=== PATIENT | male | born 1950 | race African-American/Black ===

== ENCOUNTER 2017-02-14 15:22 | Inpatient (IN) ==
--- NOTE | 2017-02-14 15:40 | EKG Report ---
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
--- NOTE | 2017-02-14 15:44 | Emergency Department Note ---
Arrival - Arrival Chief Complaint: Shortness of Breath Stated Complaint: shortness of breath ED Nursing Triage Note: Brought in per EMS from home with c/o shortness of breath onset yesterday with worsening today. +productive cough with clear sputum. +generalized weakness. +decreased appetite. Denies pain. Mode of Arrival: Stretcher Limitations: No Limitations Source: Patient, RN Notes Reviewed Time Seen by Provider: 02/14/17 15:33 - History of Present Illness HPI Narrative: Patient is a 66-year-old black male with a history of shortness of breath for 5 months worse over the last 3 days. Patient admits to orthopnea. Is also experienced some dyspnea on exertion. The patient is followed at the [place] [facility]. He admits to heavy alcohol use in the past and heavy cigarette smoking. Patient states that he has a history of hypertension and diabetes mellitus. He complains of a history of lower extremity edema Onset (ago): month(s) (5) Allergies/Adverse Reactions: Allergies Allergy/AdvReac Type Severity Reaction Status Date / Time No Known Allergies Allergy Verified 02/14/17 15:31 Review of System - Review of System 12 point system: reviewed and no additional remarkable complaints except as stated - Review of System Constitutional: Absent: chills, fever Cardiovascular: Present: dyspnea on exertion, orthopnea, edema. Absent: chest pain Gastrointestinal: Absent: nausea, vomiting Medical,Surgical,& Family Hx - Medical History Cardio: History of: CHF Endocrine: History of: Diabetes Mellitus (NIDDM) Respiratory: History of: Respiratory Problems (Home oxygen 2 Liters) Gastrointestinal: History of: Liver Problems (Hepatitis C, Cirrhosis) - Social History Smoking Status: Current every day smoker Frequency of Alcohol Use: Occasionally Type of Drug Use: None Exam Vital Signs: Vital Signs Temperature 97.2 F L 02/14/17 15:22 Pulse Rate 131 H 02/14/17 15:22 Respiratory Rate 24 02/14/17 15:22 Blood Pressure 107/86 02/14/17 15:22 O2 Sat by Pulse Oximetry 99 02/14/17 15:22 GENERAL: This is a chronically ill-appearing black male in no apparent distress. VITAL SIGNS: Reviewed HEENT: Head is atraumatic and normocephalic. Pupils are equal round react to light. Extraocular movements are intact. Oropharynx is benign with moist mucous membranes. NECK: Neck is soft and supple without tenderness. There are no masses. There is no lymphadenopathy. LUNGS: Lungs are clear to auscultation. Chest rises symmetrically. There is no chest wall tenderness. CV: Heart is regular rate and rhythm without murmurs rubs or gallops. JVD present to the angle of mandible ABDOMEN: Abdomen is soft, nontender to palpation. There are no abdominal abnormal masses palpated. There is no organomegaly. Bowel sounds are present and active. SKIN: Skin is warm and dry. No rash. EXTREMITIES: Patient has full range of motion without tenderness. There is 2+ pitting pedal edema. Course - Consultations Consultation #1: Discussed with hospitalist. Patient will be admitted to their service. Time: 16:55 Results - Labs CBC & BMP: 02/14/17 15:50 02/14/17 15:50 Lab Results: I have reviewed the patients labs Labs: Echocardiogram performed in the emergency department. Preliminary report, shows EF of approximately 15-20%. AI, MR, NC and TR. - EKG EKG results: interpreted by ERMD - Impressions EKG: Sinus tachycardia rate 127, T-wave inversion consistent with lateral ischemia - Diagnostic Findings Procedure: Chest x-ray: image reviewed by me (Cardiomegaly) Disposition Clinical Impression: Acute on chronic congestive heart failure, Cardiomyopathy, suspect alcohol Case discussed with: patient Disposition: Still a Patient Condition: Stable
[2017-02-14 16:04] LABS: Basophils % 0.4 % (0.0-0.8); Eosinophils % 0.2 % (0.00-10.9); Hematocrit 37.7 VOL% (42.0-52.0); Immature Granulocytes % 0.2 %; Immature Granulocytes Absolute 0.02 #; Lymphocytes # 2.8 10*3/uL (1.4-4.0); Lymphocytes % 34.6 % (21.2-54.2); Mean Corpuscular HGB Conc 34.5 GM/DL (32-36); Mean Corpuscular Hemoglobin 27 PG (27-34); Mean Corpuscular Volume 78.4 FL (87-102); Mean Platelet Volume 11.7 FL (9.6-12.0); Monocytes % 11.8 % (1.7-12.7); NRBC # 0.05 10*3/uL; Neutrophils # 4.3 10*3/uL (1.4-7.4); Neutrophils % 52.8 % (38.7-73.9); Platelet Count 188 T/CUMM (130-400); Red Blood Count 4.81 MC/CUMM (3.8-5.5); Red Cell Distribution Width 18.5 % (9.3-17.3); White Blood Count 8.2 T/CUMM (4-12)
--- NOTE | 2017-02-14 16:08 | XRay Report ---
XR chest 1V portable Indication: Shortness of breath Comparison: 11 September 2014 Findings: The heart and mediastinum are stable in size and configuration. The pulmonary vascularity is slightly increased with bilateral increased interstitial lung density. No other lung infiltrates, effusions, pneumothorax or other abnormality is demonstrated. Impression: Findings suggest mild cardiac decompensation. PROCEDURE INTERPRETED AT [facility] DEPARTMENT OF RADIOLOGY Final Report Signed by: Dr. Jaylen Stubbs
[2017-02-14 16:13] LABS: INR 1.3; Partial Thromboplastin Time 32.4 SECS (0-40)
[2017-02-14 16:26] LABS: Albumin 3.3 G/DL (3.4-5.0); Bilirubin,Total 1.8 MG/DL (0.2-1.0); Calcium 9.2 MG/DL (8.5-10.1); Total Protein 9.2 G/DL (6.4-8.3)
[2017-02-14 16:27] LABS: Osmolality,Calculated 277.1 MOS/KG (273-304); Potassium 4.3 MMOL/L (3.5-5.1); Troponin I Only 0.139 NG/ML (0.00-0.045)
[2017-02-14] MEDS ORDERED: DOCUSATE SODIUM 100 MG CAPSULE PO PRN (17:33)
[2017-02-14] MEDS ORDERED: diphenhydrAMINE CAP 25 MG CAPSULE PO PRN (17:33)
[2017-02-14] MEDS ORDERED: ACETAMINOPHEN 325 MG TABLET PO PRN (17:33)
[2017-02-14] MEDS ORDERED: PROMETHAZINE 25 MG TABLET PO PRN (17:33)
[2017-02-14] MEDS ORDERED: ONDANSETRON 4 MG/2 ML VIAL IV PRN (17:33)
[2017-02-14] MEDS ORDERED: guaiFENesin/DM ER 600-30 MG TABLET PO PRN (17:33)
[2017-02-14] MEDS ORDERED: MORPHINE 2 MG/1 ML SYRINGE IV PRN (17:33)
[2017-02-14] MEDS ORDERED: POTASSIUM CHLORIDE 20 MEQ TABLET PO PRN (17:39)
[2017-02-14] MEDS ORDERED: MAGNESIUM SULF RIDER 4 GM in PREMIX 1 EACH IV PRN (17:39)
--- NOTE | 2017-02-14 17:49 | Hospitalist History & Physical ---
<[place] Dasilva - Last Filed: 02/14/17 17:42> Assessment and Plan - Time spent with patient Time spent with patient: Greater than 30 minutes (1) Hepatocellular carcinoma Status: Acute Assessment and plan: Mr. Wong is a 66-year-old -[place] male with diabetes, hypertension, CHF , alcohol hepatitis C, and hepatocellular carcinoma with ascites admitted by the hospitalist service in heart failure. Patient will be admitted to the ICU due to his tachycardia and hypotension along with tachypnea. Will consult cardiology and GI to evaluate. Patient's home medicines have not been entered into the system yet, so these will be evaluated once confirmed. Patient was put on oxygen, and Lasix to diurese. Dr. Funez will see and examine patient and further recommendations to follow. Current Visit: Yes (2) Ascites due to alcoholic hepatitis Status: Acute Current Visit: Yes (3) Hepatitis C Status: Acute Current Visit: Yes (4) Shortness of breath Status: Acute Current Visit: Yes (5) Dizziness Status: Acute Current Visit: Yes (6) Weakness Status: Acute Current Visit: Yes (7) Acute renal failure Status: Acute Current Visit: Yes (8) Acute on chronic congestive heart failure Status: Acute Current Visit: Yes History of Present Illness Chief complaint: Shortness of breath History of present illness: Mr. 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 Patient is a poor historian and there are no old records to go by. According to him he was hospitalized at the [place] in August and October with shortness of breath and dizziness. He is not really sure what they did and what he is diagnosed with. He went to [facility] in November and had a liver biopsy and the discharge paperwork he had in his hand showed a primary hepatocellular carcinoma. He was unsure of this diagnosis. Patient is afebrile but his pulse rate is in the 120s-130s, he is tachypneic at 26 and he has borderline hypotensive with most recent blood pressure 100/76. His CBC is okay and coags are normal. His creatinine is 1.8, total bilirubin 1.8, AST 114, ALT 69, troponins are elevated at 0.139, and his BNP is 1351. I have not seen his echo report yet but per Dr. Slaughter in the ED it showed an EF of 15-20% with aortic insufficiency and mitral regurg. Upon exam, patient has conversational dyspnea with some crackles at the lung bases. His abdomen is distended with a fluid wave. Patient denies headache, blurred vision , dysphagia, chest pain, abdominal pain, but he does have some minimal lower extremity edema. Patient states he smoked a pack a day for about 40 years and he quit in August when he was hospitalized. Patient also states he drank a lot of alcohol pretty much his whole life and he has cut back a lot since his hospitalization in October. He states he will buy a 12 pack and it will last him 3 or 4 days. Patient's case was discussed with Dr. Slaughter the ED physician and the admitting hospitalist, and it was agreed patient would be admitted for further evaluation and treatment. Allergies Allergy/AdvReac Type Severity Reaction Status Date / Time No Known Allergies Allergy Verified 02/14/17 15:31 Medical,Surgical,& Family Hx - Medical History Cardio: History of: CHF Endocrine: History of: Diabetes Mellitus (NIDDM) Respiratory: History of: Respiratory Problems (Home oxygen 2 Liters) Gastrointestinal: History of: Liver Problems (Hepatitis C, Cirrhosis) - Surgical History Orthopedic Surgeries: Surgical HX of;: Orthopedic Surgery - Family History Family History: Reports;: Family Diabetes - Social History Smoking Status: Current every day smoker Frequency of Alcohol Use: Frequently Type of Drug Use: None Marital Status: Single Lives With:: Significant Other Functional capacity: independent ambulation Review of systems: A complete 10 system review of systems was obtained and pertinent positives and negatives per HPI Exam - Constitutional Vitals: Period Temp Pulse Resp BP Sys/Hayden Pulse Ox Last 24 Hr 97.2 F-97.2 F 128-131 24-27 100-107/76-86 99-100 Exam: Constitutional System: Mild distress. No tremulousness. Head: Normocephalic, atraumatic. Ears, Nose and Throat System: No evidence of Otitis or Mastoiditis. No epistaxis or discharge, poor dentition Eyes System: Pupils equal, round, and reactive. Extraocular muscles intact. Neck: Supple, without adenopathy, mild jugular venous distention. No thyromegaly , neck mass, or prior surgery apparent. Respiratory System: Chest mild crackles at lung bases to auscultation. Cardiovascular System: Heart with tachycardic rate and rhythm. 2/6 murmur. GI System: Abdomen distended, nontender. Positive fluid wave Normo active bowel sounds present. Musculoskeletal System: limbs with mild pedal edema. Diminished distal pulses. Neurological System: No discernable sensory deficit. No aphasia Psychiatric System: Conversation is rational Results - Labs CBC & BMP: 02/14/17 15:50 02/14/17 15:50 Lab Results: I have reviewed the past 24 hour labs - EKG EKG shows: tachycardia, sinus rhythm - Impressions ST deviation and moderate T-wave abnormality, consider lateral ischemia, sinus tachycardia - Diagnostic Findings Procedure: Chest x-ray: report reviewed by me (Mild cardiac decompensation) <Kary Funez - Last Filed: 02/14/17 20:24> History of Present Illness History of present illness: Mr. Wong is a 66 year old male with hepatic carcinoma presenting with SOB and ascites. His Troponin is also elevated,CXR showed mild CHF. Echo showed an EF of 15%. -Serial cardiac enzymes -Ascitic tap -Cardiology consult Lovenox, asa -TSH, Lipids, UA CMP , cbc in am IV diuretics Exam - Constitutional Vitals: Period Temp Pulse Resp BP Sys/Hayden Pulse Ox Last 24 Hr 97.9 F 128-128 14-24 95-101/77-82 96-100 Results - Labs CBC & BMP: 02/14/17 15:50 02/14/17 15:50
--- NOTE | 2017-02-14 18:33 | ECHO Report ---
Marvin Oleksandr Exam Date: 02/14/2017 15:52 Referring Physician: Technologist: Meaghan Obando RDCS Age: 66 Ht (in): 67 Wt (lb): 165 Gender: M Exam [facility]: [facility] Echo Indications: Shortness of breath, Heart failure, unspecified BP: 107 / 86 HR: 131 Rhythm: Sinus Technical Quality: Fair IMPRESSIONS Normal left ventricular cavity size. Normal left ventricular wall thickness. Left ventricular ejection fraction is estimated at 15 %. The right ventricle is normal in size and function. Moderately increased right atrial size. Mild atrial enlargement in apical view (elongated LA). Morphologically normal mitral valve. Mild mitral annular calcification. Mild mitral valve regurgitation. Aortic valve sclerosis without stenosis. Trace to mild aortic valve regurgitation. Morphologically normal tricuspid valve. Moderate tricuspid valve regurgitation. Tricuspid regurgitation velocities suggest a PAP of 31 mmHg. Morphologically normal pulmonic valve. Xpvx-cy-qirgqoeo pulmonary valve regurgitation. Normal pericardium without effusion. Normal ascending aorta dimension. MEASUREMENTS (Male / Female) Normal Values 2D ECHO LV Diastolic Diameter PLAX 4.9 cm 4.2 - 5.9 / 3.9 - 5.3 cm LV Systolic Diameter PLAX 4.4 cm LV Fractional Shortening PLAX 9.2 % IVS Diastolic Thickness 0.9 cm 0.6 - 1.0 / 0.6 - 0.9 cm LVPW Diastolic Thickness 1.0 cm 0.6 - 1.0 / 0.6 - 0.9 cm RV Internal Dim ED PLAX 4.2 cm Aortic Root Diameter 3.1 cm LA Systolic Diameter LX 4.1 cm 3.0 - 4.0 / 2.7 - 3.8 cm DOPPLER TR Peak Velocity 227.0 cm/s TR Peak Gradient 20.6 mmHg FINDINGS Left Ventricle Normal left ventricular cavity size. Normal left ventricular wall thickness. Left ventricular ejection fraction is estimated at 15 %. Right Ventricle The right ventricle is normal in size and function. Right Atrium Moderately increased right atrial size. Left Atrium Mild atrial enlargement in apical view (elongated LA). Mitral Valve Morphologically normal mitral valve. Mild mitral annular calcification. Mild mitral valve regurgitation. Aortic Valve Aortic valve sclerosis without stenosis. Trace to mild aortic valve regurgitation. Tricuspid Valve Morphologically normal tricuspid valve. Moderate tricuspid valve regurgitation. Tricuspid regurgitation velocities suggest a PAP of 31 mmHg. Pulmonic Valve Morphologically normal pulmonic valve. Dufx-dw-ikkmofyw pulmonary valve regurgitation. Pericardium Normal pericardium without effusion. Aorta Normal ascending aorta dimension. Rayray Funez MD (Electronically Signed) Final Date: 14 Feb 2017 18:31
[2017-02-14] MEDS: FUROSEMIDE 40 MG/4 ML VIAL IV SCH (18:59)
[2017-02-14] MEDS ORDERED: ALBUTEROL 2.5 MG/3 ML NEB RESP TX PRN (19:00)
[2017-02-14] MEDS: METOPROLOL SUCCINATE XL 25 MG TABLET PO SCH (21:10)
[2017-02-14] MEDS: POTASSIUM CHLORIDE 20 MEQ TABLET PO SCH (21:10)
[2017-02-14] MEDS: ENOXAPARIN 40 MG/0.4 ML SYRINGE SUBCUT SCH (21:10)
[2017-02-14 21:14] LABS: Free T4 (Free Thyroxine) 1.57 NG/DL (0.76-1.46); Risk Ratio 2.47; Thyroid Stimulating Hormone 8.3 uIU/ml (0.358-3.74); VLDL CHOLESTEROL 17.8 MG/DL
[2017-02-14] MEDS: BUDESONIDE/FORMOTEROL 160-4.5 INHALER 6 GM INH SCH (21:16)
[2017-02-14 23:15] LABS: Apearance,Urine CLEAR (Clear); Bilirubin,Urine Negative (Negative); Blood, Urine Negative (Negative); Glucose,Urine (UA) Negative (Negative); Hyaline Casts,Urine 4 /LPF (0-3); Ketones,Urine Negative (Negative); Mucus,Urine Occasional /LPF (Occasional); Nitrite,Urine Negative (Negative); Protein,Urine Negative; RBC,Urine <1 /HPF (0-4); Urine Color Yellow (Yellow); Urine Specific Gravity 1.009 (1.001-1.035); WBC,Urine <1 /HPF (0-6)
[2017-02-15 00:17] LABS: Troponin I Only 0.221 NG/ML (0.00-0.045)
[2017-02-15 05:36] LABS: Basophils % 0.5 % (0.0-0.8); Eosinophils # 0.1 10*3/uL (0.0-0.87); Eosinophils % 0.6 % (0.00-10.9); Hematocrit 34.5 VOL% (42.0-52.0); Hemoglobin 11.9 GM/DL (14.0-18.0); Immature Granulocytes % 0.3 %; Immature Granulocytes Absolute 0.03 #; Lymphocytes # 4.1 10*3/uL (1.4-4.0); Mean Corpuscular HGB Conc 34.5 GM/DL (32-36); Mean Corpuscular Hemoglobin 27 PG (27-34); Mean Corpuscular Volume 77.9 FL (87-102); Mean Platelet Volume 11.6 FL (9.6-12.0); Monocytes # 1.1 10*3/uL (0.11-0.8); Monocytes % 12.2 % (1.7-12.7); NRBC # 0.03 10*3/uL; Neutrophils # 3.4 10*3/uL (1.4-7.4); Neutrophils % 39.4 % (38.7-73.9); Platelet Count 200 T/CUMM (130-400); Red Blood Count 4.43 MC/CUMM (3.8-5.5); Red Cell Distribution Width 18.1 % (9.3-17.3); White Blood Count 8.6 T/CUMM (4-12)
[2017-02-15 06:16] LABS: Albumin 3.1 G/DL (3.4-5.0); Bilirubin,Total 1.9 MG/DL (0.2-1.0); Calcium 8.4 MG/DL (8.5-10.1); Magnesium 1.4 MG/DL (1.8-2.4); Total Protein 8.5 G/DL (6.4-8.3)
[2017-02-15 06:17] LABS: Osmolality,Calculated 278.1 MOS/KG (273-304); Potassium 4.3 MMOL/L (3.5-5.1)
[2017-02-15] MEDS: MAGNESIUM SULF RIDER 2 GM in PREMIX 1 EACH IV PRN ×2 (06:25→13:11)
--- NOTE | 2017-02-15 06:58 | XRay Report ---
Exam: XR chest 1V portable Date: 02/15/2017 4:00 AM Indication: Shortness of breath Comparison: 02/14/2017 Technical: AP portable Findings: External cardiac leads are present. Cardiomegaly is present. Tiny low volume right effusion present with minimal fluid along the minor fissure. Degenerative change present thoracic spine. Oxygen tubing superimposes exam. No pneumothorax. Old left rib fractures present. Impression: 1. Cardiomegaly with low volume right effusion 2. Old left rib fractures 3. Findings similar to previous study PROCEDURE INTERPRETED AT [facility] DEPARTMENT OF RADIOLOGY Final Report Signed by: Dr. Hernandez Abdalla
--- NOTE | 2017-02-15 08:41 | EKG Report ---
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
--- NOTE | 2017-02-15 09:06 | Physician Query Form ---
CLICK EDIT DOCUMENT TO SELECT QUERY ANSWER --> OK --> SIGN Ciara Carlin RN, CCDS Certified Clinical Alteration Tailor Apprentice W) [phone] (f) [phone] [email or web address] PROVIDERS: Make your selection(s) from the choices in EACH section by typing an "x" and enter comments in the comment section. Please use your independent medical judgment in providing your response. This request does not imply that any particular answer is desired or expected. CLINICAL INDICATORS: (Providers should not edit this section) The medical record indicates that the patient was admitted with CHF, "Respiratory Problems (Home oxygen 2 Liters", the patient was admitted and placed on 2 Liters per NC. Based on the above, could you clarify the appropriate diagnosis, if significant , that supports the above abnormalities and additional evaluation, monitoring, and/or treatment rendered: ( ) Patient is not being monitored or treated for chronic respiratory failure (x ) Patient is being monitored or treated for chronic respiratory failure ( ) Other, please specify: ( ) Clinically unable to determine COMMENTS: PLEASE ALSO DOCUMENT RESPONSE IN PROGRESS NOTES AND/OR DISCHARGE SUMMARY Use of terms such as suspected, likely, or probable (associated with a specific diagnosis that is being evaluated, monitored, or treated as if it exists) are acceptable and can be restated in the discharge summary if not ruled out. MTDD
--- NOTE | 2017-02-15 09:18 | Cardiology Consult Note ---
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 Status: Chronic Assessment and plan: SEE PLAN OF CARE LISTED BELOW Current Visit: Yes (4) Dizziness Status: Resolved Assessment and plan: SEE PLAN OF CARE LISTED BELOW Current Visit: Yes (5) Hepatitis C Status: Chronic Assessment and plan: SEE PLAN OF CARE LISTED BELOW Current Visit: Yes (6) Hepatocellular carcinoma Status: Chronic Assessment and plan: SEE PLAN OF CARE LISTED BELOW Current Visit: Yes (7) Shortness of breath Status: Acute Assessment and plan: SEE PLAN OF CARE LISTED BELOW Current Visit: Yes (8) Sinus tachycardia Status: Acute Assessment and plan: SEE PLAN OF CARE LISTED BELOW Current Visit: Yes (9) Elevated troponin Status: Acute Assessment and plan: SEE PLAN OF CARE LISTED BELOW Current Visit: Yes History of Present Illness - Data of Consult Patient: new to practice Consult date: 02/15/17 Requesting Physician: Kary Funez - Consult Narrative Reason for consult: Decreased EF (15%), tachycardia History of present illness: Mr. 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 Risk factors include : hypertension, diabetes. History of hepatocellular carcinoma, hepatitis C, ascites due to alcoholic hepatitis. Patient presented to the emergency department at [facility] February 14, 2017 with complaints of progressive shortness of breath, weakness and dizziness. According to the hospitalist's notes, he was seen in the [facility] center in August and October with shortness of breath and dizziness. He went to [facility] in November 2016, had a liver biopsy and was diagnosed with primary hepatocellular carcinoma. He continues to see a physician at the [place] to treat his liver cancer. He is unaware of having a weak heart. He denies having chest pain, heaviness or tightness. He denies having prior OH or any other cardiac conditions. His breathing has improved since admission. Chest x-ray does not reveal CHF. ProBNP is elevated and chest xray reveals improvement overnight. Troponins flat at 0.139-0.221 with normal CPK and CK-MB. EKG reveals ST-T wave abnormalities, no STEMI. Patient is scheduled for paracentesis today. We will continue to follow along. Recommend addressing his hypothyroid state, monitoring of his electrolytes. His telemetry reveals sinus tachycardia. Blood pressure will not allow for introduction of a higher dose of beta- blockade. We can give 1 dose of IV digoxin to slow down the rate. He is not a candidate for invasive workup due to his multiple comorbidities. When able, recommend introduction of an ROCÍO inhibitor if his creatinine stable. Will discuss with Dr. Funez and await further recommendations. ASSESSMENT/PLAN: 1. SINUS TACHYCARDIA - 1 dose of IV digoxin. Beta-blockade has been ordered. 2. ELEVATED TROPONIN - troponin is flat. CPK and MB are normal. This is not an acute coronary syndrome. Not eligible for invasive workup given his multiple comorbidities. Continue with aspirin as able. 3. HEPATOCELLULAR CARCINOMA - continue current plan of care 4. RENAL INSUFFICIENCY - stage III. Uncertain if this is acute or chronic. 5. HEPATITIS C - continue current plan of care 6. ASCITIES DUE TO ALCOHOLIC HEPATITIS - continue current plan of care. Scheduled for paracentesis today 7. SHORTNESS OF BREATH - multifactorial. Initial chest x-ray reveals mild CHF and this improved overnight. Continue diuresis, afterload reduction when able. Strict I&O and daily weights. 8. CARDIOMYOPATHY - etiology undetermined and he is not a candidate for invasive workup. EF 15%. Continue with current plan of care. 9. ACUTE HFrEF -EF 15%, NYHA CLASS III. Continue with afterload reduction, diuresis, strict I&O and daily weights. Suspect this is an acute on chronic exacerbation however this is my first encounter with Mr. Wong and I have no records from which to pull. CC: Waqar Kennedy MD - Home Medications and Allergies Home Medications: Home Medications Medication Instructions Recorded Confirmed Type Albuterol Inhaler [Proventil 2 puff INH Q6H PRN 02/14/17 02/14/17 History Inhaler] Aspirin EC Tab 81 mg PO DAILY 02/14/17 02/14/17 History Budesonide/Formoterol 160-4.5 2 puff INH BID 02/14/17 02/14/17 History [Symbicort 160-4.5] Cholecalciferol [Vitamin D3] 1,000 unit PO DAILY 02/14/17 02/14/17 History Furosemide Tab [Lasix Tab] 40 mg PO DAILY 02/14/17 02/14/17 History Meloxicam [Mobic] 7.5 mg PO DAILY PRN 02/14/17 02/14/17 History Metformin HCl 850 mg PO BID 02/14/17 02/14/17 History Metoprolol Succinate 25 mg PO BID 02/14/17 02/14/17 History Omeprazole 20 mg PO DAILY 02/14/17 02/14/17 History Ondansetron HCl 4 mg PO DAILY PRN 02/14/17 02/14/17 History Polyethylene Glycol 3350 17 gm PO DAILY 02/14/17 02/14/17 History Potassium Chloride 20 meq PO BID 02/14/17 02/14/17 History Sildenafil Citrate [Viagra] 100 mg PO DAILY PRN 02/14/17 02/14/17 History Allergies/Adverse Reactions: Allergies Allergy/AdvReac Type Severity Reaction Status Date / Time No Known Allergies Allergy Verified 02/14/17 15:31 Review of systems: REVIEW OF SYSTEMS: - Constitutional Constitutional: Present: Fatigue. Absent: syncope, anorexia, night sweats - EENT Eyes: Absent: blurry vision, loss of vision, diplopia Ears: Absent: decreased hearing, ear pain, ear discharge - Cardiovascular Cardiovascular: Denies: chest pain with exertion. Denies palpitations. Absent : chest pain with deep breath, claudication - Respiratory Respiratory: RANDALL, no cough. No orthopnea. Denies wheezing, hemoptysis, change in phlegm color - Gastrointestinal Gastrointestinal: Denies: constipation. Absent: abdminal pain, hematemesis, hematochezia, melena, change in bowel habits, nausea. Acknowledges protuberance and swelling. - Genitourinary Genitourinary: Absent: difficulty urinating, dysuria, urinary hesitancy, flank pain - Musculoskeletal Musculoskeletal: Present: back pain Absent: joint swelling, muscle cramps, muscle weakness - Neurological Neurological: Present: normal gait without frequent falls. Absent: dizziness, hemiparesis - Psychiatric Psychiatric: Absent: anxiety, depression, difficulty concentrating - Endocrine Endocrine: Absent: cold intolerance, heat intolerance, polyuria, polyphagia, polydipsia - Hematologic/Lymphatic Hematologic/Lymphatic: Present: easy bruising. Absent: easy bleeding -Integumentary Integumentary: Absent: lesions, rashes, skin breakdown Medical,Surgical,& Family Hx - Medical History Cardio: History of: CHF Psychological: History of: Depression HEENT: History of: Eye Problem (cataract surgery right eye) Endocrine: History of: Diabetes Mellitus (NIDDM) Respiratory: History of: COPD, Respiratory Problems (Home oxygen 2 Liters) Gastrointestinal: History of: GERD, Liver Problems (Hepatitis C, Cirrhosis) Musculoskeletal: History of: Back/Neck Problems, Musculoskeletal Problems (pain pills for back pain PRN) - Surgical History Orthopedic Surgeries: Surgical HX of;: Orthopedic Surgery - Family History Family History: Reports;: Family Diabetes - Social History Smoking Status: Current every day smoker Frequency of Alcohol Use: Frequently Type of Drug Use: None Physical Examination Vital Signs Temp Pulse Resp BP Pulse Ox 97.2 F L 131 H 24 107/86 99 02/14/17 15:22 02/14/17 15:22 02/14/17 15:22 02/14/17 15:22 02/14/17 15:22 General: [Appears well with no apparent distress.] [Pleasant and cooperative. ] [Appears comfortable.] HEENT: [Normocephalic, atraumatic. Mucous membranes moist. Conjunctiva moist and clear, sclerae anicteric] Neck: No obvious JVD/HJR, no thyromegaly. No carotid bruit appreciated Cardiac: [Regular rhythm, tachycardia rate. [No murmur, rub or gallop.] Lungs: [Relatively clear without without accessory muscle use to assist the respiratory pattern.] Oxygen in use via nasal cannula Abdomen: Ascites noted. Palpable orange-size mass noted right upper abdominal quadrant. Bowel sounds normoactive. Musculoskeletal: No fluid collection. Decreased range of motion is noted. Extremities: No clubbing, cyanosis noted. [ No edema noted.] Upper extremity pulses 2+. Lower extremity pulses 2+. Capillary refill less than 3 seconds. Skin: No unusual lesions or rashes. No skin breakdown appreciated. Neuro: Awake, alert and oriented 3. Moves all extremities well without hemiparesis or paralysis. No essential tremor is appreciated. Result/EKG - Labs CBC & BMP: 02/15/17 05:05 02/15/17 05:05 Lab Results: I have reviewed the past 24 hour labs Labs: Laboratory Results - last 24 hr 05/17/17 05/17/17 05/17/17 20:40 20:40 22:28 WBC RBC Hgb Hct MCV MCH MCHC RDW Plt Count MPV Neut % (Auto) Lymph % (Auto) Walker % (Auto) Eos % (Auto) Baso % (Auto) Neut # (Auto) Lymph # (Auto) Walker # (Auto) Eos # (Auto) Baso # (Auto) Immature Gran % Nucleated RBC % Immature Gran # Nucleated RBCs # Sodium Potassium Chloride Carbon Dioxide Anion Gap BUN Creatinine GFR Calculation BUN/Creatinine Ratio Glucose Calculated Osmolality Calcium Magnesium Total Bilirubin AST ALT Alkaline Phosphatase Total Creatine Kinase 103 CK-MB (CK-2) 1.7 Troponin I 0.170 H D B-Natriuretic Peptide Total Protein Albumin Globulin Albumin/Globulin Ratio Triglycerides 89 Cholesterol 148 LDL Cholesterol 74.0 VLDL Cholesterol 17.8 HDL Cholesterol 60 Heart Disease Risk Ratio 2.47 Free T4 1.57 H TSH 3rd Generation 8.300 H Urine Color Yellow Urine Appearance Clear Urine pH 6.0 Ur Specific [place] 1.009 Urine Protein Negative Urine Glucose (UA) Negative Urine Ketones Negative Urine Blood Negative Urine Nitrate Negative Urine Bilirubin Negative Urine Urobilinogen 2.0 H Urine Leukocytes Negative Urine RBC <1 Urine WBC <1 Hyaline Casts 4 Urine Mucus Occasional Ur Culture Indicated? Not indicated 02/14/17 02/15/17 02/15/17 23:32 05:05 05:05 WBC 8.6 RBC 4.43 Hgb 11.9 L Hct 34.5 L MCV 77.9 L MCH 27 MCHC 34.5 RDW 18.1 H Plt Count 200 MPV 11.6 Neut % (Auto) 39.4 Lymph % (Auto) 47.0 Walker % (Auto) 12.2 Eos % (Auto) 0.6 Baso % (Auto) 0.5 Neut # (Auto) 3.4 Lymph # (Auto) 4.1 H Walker # (Auto) 1.1 H Eos # (Auto) 0.1 Baso # (Auto) 0.0 Immature Gran % 0.3 Nucleated RBC % 0.3 Immature Gran # 0.03 Nucleated RBCs # 0.03 Sodium 135 L Potassium 4.3 Chloride 99 Carbon Dioxide 23 Anion Gap 17.3 H BUN 37 H Creatinine 1.80 H GFR Calculation 48 BUN/Creatinine Ratio 20.00 Glucose 92 Calculated Osmolality 278.1 Calcium 8.4 L Magnesium 1.4 L Total Bilirubin 1.90 H AST 149 H ALT 76 H Alkaline Phosphatase 60 Total Creatine Kinase 94 CK-MB (CK-2) 1.5 Troponin I 0.221 H D B-Natriuretic Peptide Total Protein 8.5 H Albumin 3.1 L Globulin 5.4 H Albumin/Globulin Ratio 0.5 L Triglycerides Cholesterol LDL Cholesterol VLDL Cholesterol HDL Cholesterol Heart Disease Risk Ratio Free T4 TSH 3rd Generation Urine Color Urine Appearance Urine pH Ur Specific [place] Urine Protein Urine Glucose (UA) Urine Ketones Urine Blood Urine Nitrate Urine Bilirubin Urine Urobilinogen Urine Leukocytes Urine RBC Urine WBC Hyaline Casts Urine Mucus Ur Culture Indicated? 02/15/17 05:05 WBC RBC Hgb Hct MCV MCH MCHC RDW Plt Count MPV Neut % (Auto) Lymph % (Auto) Walker % (Auto) Eos % (Auto) Baso % (Auto) Neut # (Auto) Lymph # (Auto) Walker # (Auto) Eos # (Auto) Baso # (Auto) Immature Gran % Nucleated RBC % Immature Gran # Nucleated RBCs # Sodium Potassium Chloride Carbon Dioxide Anion Gap BUN Creatinine GFR Calculation BUN/Creatinine Ratio Glucose Calculated Osmolality Calcium Magnesium Total Bilirubin AST ALT Alkaline Phosphatase Total Creatine Kinase CK-MB (CK-2) Troponin I B-Natriuretic Peptide 1197 H Total Protein Albumin Globulin Albumin/Globulin Ratio Triglycerides Cholesterol LDL Cholesterol VLDL Cholesterol HDL Cholesterol Heart Disease Risk Ratio Free T4 TSH 3rd Generation Urine Color Urine Appearance Urine pH Ur Specific [place] Urine Protein Urine Glucose (UA) Urine Ketones Urine Blood Urine Nitrate Urine Bilirubin Urine Urobilinogen Urine Leukocytes Urine RBC Urine WBC Hyaline Casts Urine Mucus Ur Culture Indicated? - Diagnostic Findings Procedure: Chest x-ray: report reviewed by me, Ultrasound: report reviewed by me (Echo) - EKG EKG results: interpreted by me EKG shows: tachycardia <Rayray Funez - Last Filed: 02/15/17 15:03> History of Present Illness - Consult Narrative History of present illness: Mr. Wong is a 66 year old male with a cardiomyopathy of undetermined etiology. He has creatinine 1.8 and I am going to cautiously add low-dose lisinopril and watch his renal function and his potassium. I am going to switch him to Coreg from metoprolol and see if we can get him appropriately treated for his cardiomyopathy. CC: Waqar Kennedy MD Physical Examination Vital Signs Temp Pulse Resp BP Pulse Ox 97.2 F L 131 H 24 107/86 99 02/14/17 15:22 02/14/17 15:22 02/14/17 15:22 02/14/17 15:22 02/14/17 15:22 Result/EKG - Labs CBC & BMP: 02/15/17 05:05 02/15/17 05:05 Labs: Laboratory Results - last 24 hr 02/14/17 02/14/17 02/14/17 20:40 20:40 22:28 WBC RBC Hgb Hct MCV MCH MCHC RDW Plt Count MPV Neut % (Auto) Lymph % (Auto) Walker % (Auto) Eos % (Auto) Baso % (Auto) Neut # (Auto) Lymph # (Auto) Walker # (Auto) Eos # (Auto) Baso # (Auto) Immature Gran % Nucleated RBC % Immature Gran # Nucleated RBCs # Sodium Potassium Chloride Carbon Dioxide Anion Gap BUN Creatinine GFR Calculation BUN/Creatinine Ratio Glucose Calculated Osmolality Calcium Magnesium Total Bilirubin AST ALT Alkaline Phosphatase Total Creatine Kinase 103 CK-MB (CK-2) 1.7 Troponin I 0.170 H D B-Natriuretic Peptide Total Protein Albumin Globulin Albumin/Globulin Ratio Triglycerides 89 Cholesterol 148 LDL Cholesterol 74.0 VLDL Cholesterol 17.8 HDL Cholesterol 60 Heart Disease Risk Ratio 2.47 Free T4 1.57 H TSH 3rd Generation 8.300 H Urine Color Yellow Urine Appearance Clear Urine pH 6.0 Ur Specific [place] 1.009 Urine Protein Negative Urine Glucose (UA) Negative Urine Ketones Negative Urine Blood Negative Urine Nitrate Negative Urine Bilirubin Negative Urine Urobilinogen 2.0 H Urine Leukocytes Negative Urine RBC <1 Urine WBC <1 Hyaline Casts 4 Urine Mucus Occasional Ur Culture Indicated? Not indicated 02/14/17 02/15/17 02/15/17 23:32 05:05 05:05 WBC 8.6 RBC 4.43 Hgb 11.9 L Hct 34.5 L MCV 77.9 L MCH 27 MCHC 34.5 RDW 18.1 H Plt Count 200 MPV 11.6 Neut % (Auto) 39.4 Lymph % (Auto) 47.0 Walker % (Auto) 12.2 Eos % (Auto) 0.6 Baso % (Auto) 0.5 Neut # (Auto) 3.4 Lymph # (Auto) 4.1 H Walker # (Auto) 1.1 H Eos # (Auto) 0.1 Baso # (Auto) 0.0 Immature Gran % 0.3 Nucleated RBC % 0.3 Immature Gran # 0.03 Nucleated RBCs # 0.03 Sodium 135 L Potassium 4.3 Chloride 99 Carbon Dioxide 23 Anion Gap 17.3 H BUN 37 H Creatinine 1.80 H GFR Calculation 48 BUN/Creatinine Ratio 20.00 Glucose 92 Calculated Osmolality 278.1 Calcium 8.4 L Magnesium 1.4 L Total Bilirubin 1.90 H AST 149 H ALT 76 H Alkaline Phosphatase 60 Total Creatine Kinase 94 CK-MB (CK-2) 1.5 Troponin I 0.221 H D B-Natriuretic Peptide Total Protein 8.5 H Albumin 3.1 L Globulin 5.4 H Albumin/Globulin Ratio 0.5 L Triglycerides Cholesterol LDL Cholesterol VLDL Cholesterol HDL Cholesterol Heart Disease Risk Ratio Free T4 TSH 3rd Generation Urine Color Urine Appearance Urine pH Ur Specific [place] Urine Protein Urine Glucose (UA) Urine Ketones Urine Blood Urine Nitrate Urine Bilirubin Urine Urobilinogen Urine Leukocytes Urine RBC Urine WBC Hyaline Casts Urine Mucus Ur Culture Indicated? 02/15/17 05:05 WBC RBC Hgb Hct MCV MCH MCHC RDW Plt Count MPV Neut % (Auto) Lymph % (Auto) Walker % (Auto) Eos % (Auto) Baso % (Auto) Neut # (Auto) Lymph # (Auto) Walker # (Auto) Eos # (Auto) Baso # (Auto) Immature Gran % Nucleated RBC % Immature Gran # Nucleated RBCs # Sodium Potassium Chloride Carbon Dioxide Anion Gap BUN Creatinine GFR Calculation BUN/Creatinine Ratio Glucose Calculated Osmolality Calcium Magnesium Total Bilirubin AST ALT Alkaline Phosphatase Total Creatine Kinase CK-MB (CK-2) Troponin I B-Natriuretic Peptide 1197 H Total Protein Albumin Globulin Albumin/Globulin Ratio Triglycerides Cholesterol LDL Cholesterol VLDL Cholesterol HDL Cholesterol Heart Disease Risk Ratio Free T4 TSH 3rd Generation Urine Color Urine Appearance Urine pH Ur Specific [place] Urine Protein Urine Glucose (UA) Urine Ketones Urine Blood Urine Nitrate Urine Bilirubin Urine Urobilinogen Urine Leukocytes Urine RBC Urine WBC Hyaline Casts Urine Mucus Ur Culture Indicated?
[2017-02-15] MEDS: FUROSEMIDE 40 MG/4 ML VIAL IV SCH ×2 (09:26→16:26)
[2017-02-15] MEDS: POTASSIUM CHLORIDE 20 MEQ TABLET PO SCH ×2 (09:27→20:03)
[2017-02-15] MEDS: CHOLECALCIFEROL 1,000 UNIT TABLET PO SCH (09:27)
[2017-02-15] MEDS: POLYETHYLENE GLYCOL POWDER 17 GM PACK PO SCH (09:27)
[2017-02-15] MEDS: ASPIRIN CHEW 81 MG TABLET PO SCH (09:27)
[2017-02-15] MEDS: PANTOPRAZOLE 40 MG TABLET PO SCH (09:27)
[2017-02-15] MEDS: METOPROLOL SUCCINATE XL 25 MG TABLET PO SCH (09:27)
[2017-02-15] MEDS: BUDESONIDE/FORMOTEROL 160-4.5 INHALER 6 GM INH SCH ×2 (09:32→20:03)
[2017-02-15] MEDS ORDERED: DIGOXIN 0.5 MG/2 ML AMP IV ONE (11:36)
--- NOTE | 2017-02-15 11:51 | Gastrointestinal Consult Note ---
Assessment and Plan (1) Hepatocellular carcinoma Status: Chronic Assessment and plan: 02/15-Recent diagnosis of liver cancer at [facility] with history of Hepatitis C ( reported to be treated by patient). FIndings of ascites, elevated LFTS. For paracentesis today. Await records from [facility]. Plan and addendum to follow by Dr Jama. Current Visit: Yes History of Present Illness Chief complaint: SOB, hx of liver cancer, hep C History of present illness: Mr Wong is a 66 y/o black male admitted to the hospital with complaints of increased shortness of breath and weakness. Patient is a fair historian therefore information also obtained from chart review. Pt has a history of liver cancer, hepatitis C, DM, HTN, CHF. He has been treated at the [facility] and at [facility] prior to now. Pt states that approximatetly three days ago he had an increase in SOB and weakness as well as some abdominal swelling. He states that this progressively worsened until he came to our facility for further evaluation. Pt was diagnosed in November of this year after a liver biopsy with hepatocellular carcinoma. He states that he had a "laser surgery" for this recently but cannot recall any further details.He also states he has received three injections in the past for his Hepatitis C. Pt has a heavy history of alcohol use as well as cigarette smoking however he states he has cut back on his alcohol intake since his diagnosis. He reports a weight loss of vaguely 10- 15 pounds since diagnosis. He denies any fever, chills or night sweats. Denies any abdominal pain other than the discomfort from the distention. On admission, his bilirubin is elevated at 1.9, AST 149, ALT. He is also noted to have mildly elevated troponin levels as well as BNP. He was placed in ICU on admission due to findings of hypotension and tachycardia. He is for paracentesis today. Records from [facility] pending at this time. Home Medications Medication Instructions Recorded Confirmed Type Albuterol Inhaler [Proventil 2 puff INH Q6H PRN 02/14/17 02/14/17 History Inhaler] Aspirin EC Tab 81 mg PO DAILY 02/14/17 02/14/17 History Budesonide/Formoterol 160-4.5 2 puff INH BID 02/14/17 02/14/17 History [Symbicort 160-4.5] Cholecalciferol [Vitamin D3] 1,000 unit PO DAILY 02/14/17 02/14/17 History Furosemide Tab [Lasix Tab] 40 mg PO DAILY 02/14/17 02/14/17 History Meloxicam [Mobic] 7.5 mg PO DAILY PRN 02/14/17 02/14/17 History Metformin HCl 850 mg PO BID 02/14/17 02/14/17 History Metoprolol Succinate 25 mg PO BID 02/14/17 02/14/17 History Omeprazole 20 mg PO DAILY 02/14/17 02/14/17 History Ondansetron HCl 4 mg PO DAILY PRN 02/14/17 02/14/17 History Polyethylene Glycol 3350 17 gm PO DAILY 02/14/17 02/14/17 History Potassium Chloride 20 meq PO BID 02/14/17 02/14/17 History Sildenafil Citrate [Viagra] 100 mg PO DAILY PRN 02/14/17 02/14/17 History Allergies Allergy/AdvReac Type Severity Reaction Status Date / Time No Known Allergies Allergy Verified 02/14/17 15:31 Medical,Surgical,& Family Hx - Medical History Cardio: History of: CHF Psychological: History of: Depression HEENT: History of: Eye Problem (cataract surgery right eye) Endocrine: History of: Diabetes Mellitus (NIDDM) Respiratory: History of: COPD, Respiratory Problems (Home oxygen 2 Liters) Gastrointestinal: History of: GERD, Liver Problems (Hepatitis C, Cirrhosis) Musculoskeletal: History of: Back/Neck Problems, Musculoskeletal Problems (pain pills for back pain PRN) - Surgical History Orthopedic Surgeries: Surgical HX of;: Orthopedic Surgery - Family History Family History: Reports;: Family Diabetes - Social History Smoking Status: Current every day smoker Frequency of Alcohol Use: Frequently Type of Drug Use: None 12 point system: reviewed and no additional remarkable complaints except as stated - Constitutional Constitutional: Present: as per HPI - EENT Eyes: Present: as per HPI Ears: Present: as per HPI Nose, mouth and throat: Present: as per HPI - Cardiovascular Cardiovascular: Present: as per HPI - Respiratory Respiratory: Present: as per HPI - Gastrointestinal Gastrointestinal: Present: as per HPI - Genitourinary Genitourinary: Present: as per HPI - Musculoskeletal Musculoskeletal: Present: as per HPI - Neurological Neurological: Present: as per HPI - Psychiatric Psychiatric: Present: as per HPI ( O) - Endocrine Endocrine: Present: as per HPI - Hematologic/Lymphatic Hematologic/Lymphatic: Present: as per HPI (The right) Exam - Constitutional Vitals: Period Temp Pulse Resp BP Sys/Hayden Pulse Ox Last 24 Hr 97.6 F-97.9 F 113-128 14-28 95-121/72-92 96-100 General appearance: normal weight, no acute distress - Head Head exam: Present: normal inspection, normocephalic - Eye Eye exam: Present: other (lids and conjunctiva unremarakble). Absent: scleral icterus - ENT ENT exam: Present: normal exam, normal oropharynx (She is a few minutes) - Neck Neck exam: Present: normal inspection - Respiratory Respiratory exam: Present: clear to auscultation bilaterally. Absent: rales, rhonchi, wheezes ( 1 million jumped) - Cardiovascular Cardiovascular exam: Present: regular rate and rhythm. Absent: diastolic murmur , JVD, systolic murmur - GI/Abdominal GI/Abdominal exam: Present: normal bowel sounds, ascites, distended ( Y), soft. Absent: mass, organomegaly, tenderness - Extremities Exam Extremities exam: Present: normal inspection - Back Exam Back exam: Present: normal inspection - Neurological Exam Neurological exam: Present: alert, oriented X3 - Psychiatric Psychiatric exam: Present: normal affect, normal mood - Skin Skin exam: Present: normal color, warm, dry Results - Labs CBC & BMP: 02/15/17 05:05 02/15/17 05:05 Lab Results: I have reviewed the past 24 hour labs
--- NOTE | 2017-02-15 13:33 | Hospitalist Progress Note ---
Assessment and Plan (1) Acute on chronic congestive heart failure Status: Acute Current Visit: Yes (2) Hepatocellular carcinoma Status: Chronic Current Visit: Yes (3) Shortness of breath Status: Acute Current Visit: Yes (4) Sinus tachycardia Status: Acute Current Visit: Yes (5) Elevated troponin Status: Acute Current Visit: Yes Hospitalist: Subjective Interval history: No acute events overnight. He feels a little better. Echo with EF 15%. He is a poor historian. Patient reports being told that his heart is "weak" before. He also reports that his hepatitis has been treated. A biopsy done around November with hepatocellular carcinoma, he is not sure if he has ever seen a liver doctor. Cardiology and GI have been consulted. Plan is for paracentesis today. Continue IV lasix. Exam - Constitutional Vitals: Period Temp Pulse Resp BP Sys/Hayden Pulse Ox Last 24 Hr 97.6 F-97.9 F 113-128 14-28 95-121/72-92 96-100 General appearance: normal weight - Head Head exam: Present: normocephalic, atraumatic - Eye Eye exam: Present: EOMI Pupils: Present: VIKI - ENT ENT exam: Present: normal exam - Neck Neck exam: Present: normal inspection - Respiratory Respiratory exam: Present: clear to auscultation bilaterally. Absent: wheezes - Cardiovascular Cardiovascular exam: Present: regular rate and rhythm - GI/Abdominal GI/Abdominal exam: Present: normal bowel sounds, soft. Absent: tenderness, rebound - Extremities Exam Extremities exam: Present: normal inspection - Back Exam Back exam: Present: normal inspection - Neurological Exam Neurological exam: Present: alert, oriented X3 - Psychiatric Psychiatric exam: Present: normal affect, normal mood - Skin Skin exam: Present: warm, intact Results - Labs CBC & BMP: 02/15/17 05:05 02/15/17 05:05
--- NOTE | 2017-02-15 14:37 | Post Interventional Procedure ---
Pre-op diagnosis: Ascites Post-op diagnosis: same Procedure: Ultrasound-guided paracentesis Radiologist: Gideon James Anesthesia: local Specimens: other (900 cc sunny colored ascites held for laboratory) Estimated blood loss: none Complications: none Condition: stable Assessment and Plan - Time spent with patient Time spent with patient: Less than 30 minutes
--- NOTE | 2017-02-15 16:08 | Ultrasound Report ---
US paracentesis abd w/image Indication: Ascites. Ultrasound-guided paracentesis Description: A formal timeout was performed. Maximum sterile barrier technique was used. The right upper quadrant was prepped and draped in sterile fashion. Under sonographic guidance, a 6 Azeri pigtail catheter was advanced into the ascites using trocar technique. A captured sonographic image documents needle position. The needle was removed. Through the catheter, we obtained a total of 900 cc of sunny-colored ascites. No additional fluid could be obtained. Therefore, the catheter was removed. A bandage was placed at the puncture site. The patient tolerated the procedure well. Impression: Ultrasound-guided paracentesis. PROCEDURE INTERPRETED AT [facility] DEPARTMENT OF RADIOLOGY Final Report Signed by: Gideon James M.D.
[2017-02-15 16:47] LABS: Neutrophils,Peritoneal Fluid 6 %; RBC,Peritoneal Fluid 2304 T/CUMM
[2017-02-15] MEDS: ENOXAPARIN 40 MG/0.4 ML SYRINGE SUBCUT SCH (18:17)
[2017-02-15] MEDS: LISINOPRIL 2.5 MG TABLET PO SCH (20:03)
[2017-02-15] MEDS: CARVEDILOL 6.25 MG TABLET PO SCH (20:03)
[2017-02-16] MEDS ORDERED: METOPROLOL TARTRATE 5 MG/5 ML VIAL IV PRN (04:48)
[2017-02-16 05:52] LABS: Basophils % 0.3 % (0.0-0.8); Eosinophils % 0.5 % (0.00-10.9); Hematocrit 33.5 VOL% (42.0-52.0); Hemoglobin 11.4 GM/DL (14.0-18.0); Immature Granulocytes % 0.4 %; Immature Granulocytes Absolute 0.03 #; Lymphocytes # 2.5 10*3/uL (1.4-4.0); Lymphocytes % 33.5 % (21.2-54.2); Mean Corpuscular Hemoglobin 27 PG (27-34); Mean Corpuscular Volume 79.4 FL (87-102); Mean Platelet Volume 11.4 FL (9.6-12.0); Monocytes # 0.9 10*3/uL (0.11-0.8); Monocytes % 12.2 % (1.7-12.7); Neutrophils # 3.9 10*3/uL (1.4-7.4); Neutrophils % 53.1 % (38.7-73.9); Platelet Count 178 T/CUMM (130-400); Red Blood Count 4.22 MC/CUMM (3.8-5.5); Red Cell Distribution Width 18.9 % (9.3-17.3); White Blood Count 7.4 T/CUMM (4-12)
[2017-02-16 06:22] LABS: Calcium 8.5 MG/DL (8.5-10.1); Magnesium 2.1 MG/DL (1.8-2.4); Osmolality,Calculated 276.2 MOS/KG (273-304); Potassium 4.1 MMOL/L (3.5-5.1)
--- NOTE | 2017-02-16 07:06 | EKG Report ---
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
--- NOTE | 2017-02-16 08:58 | Cardiology Progress Note ---
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 Status: Chronic Assessment and plan: SEE PLAN OF CARE LISTED BELOW Current Visit: Yes (4) Dizziness Status: Resolved Assessment and plan: SEE PLAN OF CARE LISTED BELOW Current Visit: Yes (5) Hepatitis C Status: Chronic Assessment and plan: SEE PLAN OF CARE LISTED BELOW Current Visit: Yes (6) Hepatocellular carcinoma Status: Chronic Assessment and plan: SEE PLAN OF CARE LISTED BELOW Current Visit: Yes (7) Shortness of breath Status: Acute Assessment and plan: SEE PLAN OF CARE LISTED BELOW Current Visit: Yes (8) Sinus tachycardia Status: Acute Assessment and plan: SEE PLAN OF CARE LISTED BELOW Current Visit: Yes (9) Elevated troponin Status: Acute Assessment and plan: SEE PLAN OF CARE LISTED BELOW Current Visit: Yes Cardiology - PN: Subj Interval history: ORACLE ENGINEER: DR. FUNEZ (NEW) SUMMARY: Mr. Wong, 66BM, has no known prior cardiac history. History of hepatocellular carcinoma, hepatitis C, ascites due to alcoholic hepatitis, hypertension and diabetes. Admitted February 15, 2017 with complaints of progressive shortness of breath, weakness and dizziness. Newly discovered cardiomyopathy (EF 15%). Troponins flat at 0.139-0.221 with normal CPK and CK-MB. EKG reveals ST-T wave abnormalities, no STEMI. FEBRUARY 16, 2017: This morning, patient tells me he is breathing better. Underwent paracentesis yesterday with 900 cc of sunny colored fluid aspirated. Denies chest pain, heaviness or tightness. EKG this morning reviewed. Tolerating low- dose beta-jorge and low-dose ROCÍO inhibitor. He seems to be much more comfortable this morning. He is not a candidate for invasive workup due to his multiple comorbidities. We discussed with Dr. Funez and await additional recommendations. ASSESSMENT/PLAN: 1. SINUS TACHYCARDIA - improved. Tolerating low-dose beta jorge at this point. 2. ELEVATED TROPONIN - troponin is flat. CPK and MB are normal. This is not an acute coronary syndrome. Not eligible for invasive workup given his multiple comorbidities. Continue with aspirin as able. 3. HEPATOCELLULAR CARCINOMA - continue current plan of care 4. RENAL INSUFFICIENCY - stage III. Uncertain if this is acute or chronic. 5. HEPATITIS C - continue current plan of care 6. ASCITIES DUE TO ALCOHOLIC HEPATITIS - status post paracentesis. Breathing more comfortably. Continue current plan of care. 7. SHORTNESS OF BREATH - multifactorial. Initial chest x-ray reveals mild CHF and this has improved. Continue diuresis, afterload reduction. Strict I&O and daily weights. 8. CARDIOMYOPATHY - etiology undetermined and he is not a candidate for invasive workup. EF 15%. Continue with current plan of care. 9. ACUTE HFrEF - EF 15%, NYHA CLASS III. Continue with afterload reduction, diuresis, strict I&O and daily weights. Suspect this is an acute on chronic exacerbation however this is my first encounter with Mr. Wong and I have no records from which to pull. Exam (Progress Note) - Constitutional Vitals: Period Temp Pulse Resp BP Sys/Hayden Pulse Ox Last 24 Hr 97.0 F-98.2 F 104-132 14-25 94-128/69-94 94-100 Exam: General: [Appears well with no apparent distress.] [Pleasant and cooperative. ] [Appears comfortable.] HEENT: [Normocephalic, atraumatic. Mucous membranes moist. Conjunctiva moist and clear, sclerae anicteric] Neck: No obvious JVD/HJR, no thyromegaly. No carotid bruit appreciated Cardiac: [Regular rhythm, tachycardia rate. [No murmur, rub or gallop.] Lungs: [Relatively clear without without accessory muscle use to assist the respiratory pattern.] Oxygen in use via nasal cannula Abdomen: Ascites noted. Palpable orange-size mass noted right upper abdominal quadrant. Bowel sounds normoactive. Musculoskeletal: No fluid collection. Decreased range of motion is noted. Extremities: No clubbing, cyanosis noted. [ No edema noted.] Upper extremity pulses 2+. Lower extremity pulses 2+. Capillary refill less than 3 seconds. Skin: No unusual lesions or rashes. No skin breakdown appreciated. Neuro: Awake, alert and oriented 3. Moves all extremities well without hemiparesis or paralysis. No essential tremor is appreciated. Result/EKG - Labs CBC & BMP: 02/16/17 05:07 02/16/17 05:07 Lab Results: I have reviewed the past 24 hour labs Labs: Laboratory Results - last 24 hr 02/15/17 02/15/17 02/16/17 14:30 14:30 05:07 WBC 7.4 RBC 4.22 Hgb 11.4 L Hct 33.5 L MCV 79.4 L MCH 27 MCHC 34.0 RDW 18.9 H Plt Count 178 MPV 11.4 Neut % (Auto) 53.1 Lymph % (Auto) 33.5 [place] % (Auto) 12.2 Eos % (Auto) 0.5 Baso % (Auto) 0.3 Neut # (Auto) 3.9 Lymph # (Auto) 2.5 [place] # (Auto) 0.9 H Eos # (Auto) 0.0 Baso # (Auto) 0.0 Immature Gran % 0.4 Nucleated RBC % 0.0 Immature Gran # 0.03 Nucleated RBCs # 0.00 Sodium Potassium Chloride Carbon Dioxide Anion Gap BUN Creatinine GFR Calculation BUN/Creatinine Ratio Glucose Calculated Osmolality Calcium Magnesium Peritoneal WBC 581 Peritoneal RBC [address] 100 Periton Neutrophils 6 Periton Lymphocytes 94 Peritoneal Diff Commnt Peritoneal Albumin 1.8 02/16/17 05:07 WBC RBC Hgb Hct MCV MCH MCHC RDW Plt Count MPV Neut % (Auto) Lymph % (Auto) [place] % (Auto) Eos % (Auto) Baso % (Auto) Neut # (Auto) Lymph # (Auto) [place] # (Auto) Eos # (Auto) Baso # (Auto) Immature Gran % Nucleated RBC % Immature Gran # Nucleated RBCs # Sodium 134 L Potassium 4.1 Chloride 98 Carbon Dioxide 25 Anion Gap 15.1 H BUN 37 H Creatinine 1.50 H GFR Calculation 59 BUN/Creatinine Ratio 24.00 H Glucose 96 Calculated Osmolality 276.2 Calcium 8.5 Magnesium 2.1 Peritoneal WBC Peritoneal RBC Periton Tot Cells Ct Periton Neutrophils Periton Lymphocytes Peritoneal Diff Commnt Peritoneal Albumin - EKG EKG results: interpreted by me EKG shows: tachycardia, sinus rhythm
[2017-02-16] MEDS: FUROSEMIDE 40 MG/4 ML VIAL IV SCH (09:22)
[2017-02-16] MEDS: LISINOPRIL 2.5 MG TABLET PO SCH ×2 (09:23→21:10)
[2017-02-16] MEDS: CHOLECALCIFEROL 1,000 UNIT TABLET PO SCH (09:23)
[2017-02-16] MEDS: ASPIRIN CHEW 81 MG TABLET PO SCH (09:24)
[2017-02-16] MEDS: CARVEDILOL 6.25 MG TABLET PO SCH ×2 (09:24→21:10)
[2017-02-16] MEDS: PANTOPRAZOLE 40 MG TABLET PO SCH (09:24)
[2017-02-16] MEDS: SPIRONOLACTONE 50 MG TABLET PO SCH (09:24)
[2017-02-16] MEDS: POTASSIUM CHLORIDE 20 MEQ TABLET PO SCH ×2 (09:25→21:10)
[2017-02-16] MEDS: POLYETHYLENE GLYCOL POWDER 17 GM PACK PO SCH (09:25)
[2017-02-16] MEDS: BUDESONIDE/FORMOTEROL 160-4.5 INHALER 6 GM INH SCH ×2 (09:27→21:10)
--- NOTE | 2017-02-16 10:17 | Physician Query Form ---
CLICK EDIT DOCUMENT TO SELECT QUERY ANSWER --> OK --> SIGN Ciara Carlin RN, CCDS Certified Clinical Health Information Administrator W) [phone] (f) [phone] [email or web address] PROVIDERS: Make your selection(s) from the choices in EACH section by typing an "x" and enter comments in the comment section. Please use your independent medical judgment in providing your response. This request does not imply that any particular answer is desired or expected. CLINICAL INDICATORS: (Providers should not edit this section) The medical record indicates that the patient was admitted with CHF (acute on chronic), EF of 15% and the patient was treated with IV Lasix. Please provide further specificity regarding CHF. TYPE: (x ) Systolic (HFrEF - heart failure with reduced systolic function/EF) ( ) Diastolic (HFpEF - heart failure with preserved systolic function/EF) ( ) Combined Systolic/Diastolic ( ) Other, please specify: ( ) Clinically unable to determine ( ) The patient does NOT have CHF COMMENTS: PLEASE ALSO DOCUMENT RESPONSE IN PROGRESS NOTES AND/OR DISCHARGE SUMMARY Use of terms such as suspected, likely, or probable (associated with a specific diagnosis that is being evaluated, monitored, or treated as if it exists) are acceptable and can be restated in the discharge summary if not ruled out. MTDD
--- NOTE | 2017-02-16 10:53 | Gastrointestinal Progress Note ---
Assessment and Plan (1) Hepatocellular carcinoma Status: Chronic Assessment and plan: 02/16-paracentesis with 900 cc removed. No complaint of abdominal pain. Records from [place]/[facility] still pending. Plan an addendum problem Dr. Jama. 02/15-Recent diagnosis of liver cancer at [facility] with history of Hepatitis C ( reported to be treated by patient). FIndings of ascites, elevated LFTS. For paracentesis today. Await records from [place]/[facility]. Plan and addendum to follow by Dr Jama. Current Visit: Yes Gastroenterology - PN: Subj Interval history: CC: Liver cancer Patient seen awake alert sitting up in bed. States he is feeling much better today. He underwent paracentesis on yesterday and had 900 cc removed. Denies any abdominal pain, nausea vomiting. Weight is essentially unchanged at this time. No signs of encephalopathy at present time. Abdomen soft, nontender. ROS: Denies shortness of breath or chest pain. Exam (Progress Note) - Constitutional Vitals: Period Temp Pulse Resp BP Sys/Hayden Pulse Ox Last 24 Hr 97.0 F-98.2 F 104-132 14-25 94-128/69-94 94-100 - Other Additional findings: General appearance: normal weight, no acute distress - Head Head exam: Present: normal inspection, normocephalic - Eye Eye exam: Present: other (lids and conjunctiva unremarakble). Absent: scleral icterus - ENT ENT exam: Present: normal exam, normal oropharynx (She is a few minutes) - Neck Neck exam: Present: normal inspection - Respiratory Respiratory exam: Present: clear to auscultation bilaterally. Absent: rales, rhonchi, wheezes ( 1 million jumped) - Cardiovascular Cardiovascular exam: Present: regular rate and rhythm. Absent: diastolic murmur , JVD, systolic murmur - GI/Abdominal GI/Abdominal exam: Present: normal bowel sounds, ascites, distended ( Y), soft. Absent: mass, organomegaly, tenderness - Extremities Exam Extremities exam: Present: normal inspection - Back Exam Back exam: Present: normal inspection - Neurological Exam Neurological exam: Present: alert, oriented X3 - Psychiatric Psychiatric exam: Present: normal affect, normal mood - Skin Skin exam: Present: normal color, warm, dry Results - Labs CBC & BMP: 02/16/17 05:07 02/16/17 05:07 Lab Results: I have reviewed the past 24 hour labs
--- NOTE | 2017-02-16 14:58 | Hospitalist Progress Note ---
Assessment and Plan (1) Acute on chronic congestive heart failure Status: Acute Current Visit: Yes (2) Hepatocellular carcinoma Status: Chronic Current Visit: Yes (3) Shortness of breath Status: Acute Current Visit: Yes (4) Sinus tachycardia Status: Acute Current Visit: Yes (5) Elevated troponin Status: Acute Current Visit: Yes Hospitalist: Subjective Interval history: No acute events overnight. Reports that his breathing is better. Now complaining of weakness. Paracentesis yesterday with 900cc removed. No signs of infection. GI and cardiology are assisting. Will transfer out of the unit today. If remains well will discharge tomorrow to follow-up with his doctors at the [place]. 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 Exam - Constitutional Vitals: Period Temp Pulse Resp BP Sys/Hayden Pulse Ox Last 24 Hr 97.0 F-98.3 F 104-130 14-31 92-120/61-94 91-100 General appearance: normal weight - Head Head exam: Present: normocephalic, atraumatic - Eye Eye exam: Present: EOMI Pupils: Present: VIKI - ENT ENT exam: Present: normal exam - Neck Neck exam: Present: normal inspection - Respiratory Respiratory exam: Present: clear to auscultation bilaterally. Absent: rhonchi, wheezes - Cardiovascular Cardiovascular exam: Present: regular rate and rhythm - GI/Abdominal GI/Abdominal exam: Present: normal bowel sounds, soft - Extremities Exam Extremities exam: Present: normal inspection - Back Exam Back exam: Present: normal inspection - Neurological Exam Neurological exam: Present: alert, oriented X3 - Psychiatric Psychiatric exam: Present: normal affect, normal mood - Skin Skin exam: Present: warm, intact Results - Labs CBC & BMP: 02/16/17 05:07 02/16/17 05:07
[2017-02-16] MEDS: ENOXAPARIN 40 MG/0.4 ML SYRINGE SUBCUT SCH (17:07)
[2017-02-17 06:02] LABS: Basophils % 0.4 % (0.0-0.8); Eosinophils # 0.1 10*3/uL (0.0-0.87); Eosinophils % 1.1 % (0.00-10.9); Hematocrit 33.2 VOL% (42.0-52.0); Hemoglobin 11.2 GM/DL (14.0-18.0); Immature Granulocytes % 0.4 %; Immature Granulocytes Absolute 0.02 #; Lymphocytes # 1.7 10*3/uL (1.4-4.0); Lymphocytes % 31.9 % (21.2-54.2); Mean Corpuscular HGB Conc 33.7 GM/DL (32-36); Mean Corpuscular Hemoglobin 27 PG (27-34); Mean Corpuscular Volume 80.2 FL (87-102); Mean Platelet Volume 11.9 FL (9.6-12.0); Monocytes # 0.7 10*3/uL (0.11-0.8); Monocytes % 12.9 % (1.7-12.7); Neutrophils # 2.9 10*3/uL (1.4-7.4); Neutrophils % 53.3 % (38.7-73.9); Platelet Count 162 T/CUMM (130-400); Red Blood Count 4.14 MC/CUMM (3.8-5.5); Red Cell Distribution Width 18.9 % (9.3-17.3); White Blood Count 5.4 T/CUMM (4-12)
[2017-02-17 06:32] LABS: Calcium 8.2 MG/DL (8.5-10.1); Magnesium 2.3 MG/DL (1.8-2.4); Osmolality,Calculated 275.2 MOS/KG (273-304); Potassium 4.2 MMOL/L (3.5-5.1)
[2017-02-17] MEDS: CHOLECALCIFEROL 1,000 UNIT TABLET PO SCH (08:39)
[2017-02-17] MEDS: ASPIRIN CHEW 81 MG TABLET PO SCH (08:39)
[2017-02-17] MEDS: PANTOPRAZOLE 40 MG TABLET PO SCH (08:40)
[2017-02-17] MEDS: LISINOPRIL 2.5 MG TABLET PO SCH ×2 (08:40→21:00)
[2017-02-17] MEDS: POTASSIUM CHLORIDE 20 MEQ TABLET PO SCH ×2 (08:41→20:59)
[2017-02-17] MEDS: CARVEDILOL 6.25 MG TABLET PO SCH ×2 (08:42→20:59)
[2017-02-17] MEDS: SPIRONOLACTONE 50 MG TABLET PO SCH (08:42)
[2017-02-17] MEDS: POLYETHYLENE GLYCOL POWDER 17 GM PACK PO SCH (08:43)
[2017-02-17] MEDS: FUROSEMIDE 40 MG/4 ML VIAL IV SCH ×2 (08:44→20:56)
[2017-02-17] MEDS: BUDESONIDE/FORMOTEROL 160-4.5 INHALER 6 GM INH SCH ×2 (08:48→21:02)
--- NOTE | 2017-02-17 10:17 | Cardiology Progress Note ---
Assessment and Plan (1) Dyspnea Status: Acute Assessment and plan: Patient continues with volume overload will push Lasix to see if we can improve that. Current Visit: Yes (2) Acute on chronic congestive heart failure Status: Acute Current Visit: Yes (3) Cardiomyopathy Status: Acute Current Visit: Yes Qualifiers: Cardiomyopathy type: unspecified Qualified Code(s): I42.9 - Cardiomyopathy , unspecified Cardiology - PN: Subj Interval history: Patient continues dyspneic at times. He still has changes on exam that are consistent with volume overload and we will push diuresis a little harder. Exam (Progress Note) - Constitutional Vitals: Period Temp Pulse Resp BP Sys/Hayden Pulse Ox Last 24 Hr 96.1 F-98.1 F 95-110 16-31 100-123/63-89 91-99 Exam: General:no acute distress. alert and oriented, mood and affect are normal HEENT: no new lesions, sclerae are clear, mouth and pharynx benign Neck: supple, trachea midline, no JVD noted Lungs: Moist rales left base. No rhonchi or wheezes noted.. CV: RRR no murmur rub or gallop is noted. Abd: soft and nontender, BSNA, no masses. Ext: no cyanosis, clubbing or edema Neuro: grossly intact without focal neurologic deficit. Result/EKG - Labs CBC & BMP: 02/17/17 05:14 02/17/17 05:14 Labs: Laboratory Results - last 24 hr 02/17/17 02/17/17 05:14 05:14 WBC 5.4 RBC 4.14 Hgb 11.2 L Hct 33.2 L MCV 80.2 L MCH 27 MCHC 33.7 RDW 18.9 H Plt Count 162 MPV 11.9 Neut % (Auto) 53.3 Lymph % (Auto) 31.9 [place] % (Auto) 12.9 H Eos % (Auto) 1.1 Baso % (Auto) 0.4 Neut # (Auto) 2.9 Lymph # (Auto) 1.7 [place] # (Auto) 0.7 Eos # (Auto) 0.1 Baso # (Auto) 0.0 Immature Gran % 0.4 Nucleated RBC % 0.0 Immature Gran # 0.02 Nucleated RBCs # 0.00 Sodium 134 L Potassium 4.2 Chloride 99 Carbon Dioxide 26 Anion Gap 13.2 BUN 36 H Creatinine 1.20 GFR Calculation 77 BUN/Creatinine Ratio 30.00 H Glucose 103 Calculated Osmolality 275.2 Calcium 8.2 L Magnesium 2.3
--- NOTE | 2017-02-17 13:08 | Hospitalist Progress Note ---
Assessment and Plan (1) Acute on chronic congestive heart failure Status: Acute Current Visit: Yes (2) Hepatocellular carcinoma Status: Chronic Current Visit: Yes (3) Shortness of breath Status: Acute Current Visit: Yes (4) Sinus tachycardia Status: Acute Current Visit: Yes (5) Elevated troponin Status: Acute Current Visit: Yes Hospitalist: Subjective Interval history: No acute events overnight. Reports that his breathing is better but still not at his baseline. Gets sob with any exertion. Working with physical therapy. Cardiology assisting. Lasix increased. Exam - Constitutional Vitals: Period Temp Pulse Resp BP Sys/Hayden Pulse Ox Last 24 Hr 96.1 F-98.1 F 95-110 16-22 100-123/63-89 94-99 General appearance: normal weight - Head Head exam: Present: normocephalic, atraumatic - Eye Eye exam: Present: EOMI Pupils: Present: VIKI - ENT ENT exam: Present: normal exam - Neck Neck exam: Present: normal inspection - Respiratory Respiratory exam: Present: clear to auscultation bilaterally. Absent: rhonchi, wheezes - Cardiovascular Cardiovascular exam: Present: regular rate and rhythm - GI/Abdominal GI/Abdominal exam: Present: normal bowel sounds, soft. Absent: tenderness, rebound - Extremities Exam Extremities exam: Present: normal inspection - Back Exam Back exam: Present: normal inspection - Neurological Exam Neurological exam: Present: alert, oriented X3 - Psychiatric Psychiatric exam: Present: normal affect, normal mood - Skin Skin exam: Present: warm, intact Results - Labs CBC & BMP: 02/17/17 05:14 02/17/17 05:14
[2017-02-17] MEDS: ENOXAPARIN 40 MG/0.4 ML SYRINGE SUBCUT SCH (18:02)
[2017-02-18 04:35] LABS: Basophils % 0.2 % (0.0-0.8); Eosinophils % 0.5 % (0.00-10.9); Hematocrit 34.9 VOL% (42.0-52.0); Hemoglobin 11.6 GM/DL (14.0-18.0); Immature Granulocytes % 0.5 %; Immature Granulocytes Absolute 0.03 #; Lymphocytes # 2.2 10*3/uL (1.4-4.0); Lymphocytes % 33.3 % (21.2-54.2); Mean Corpuscular HGB Conc 33.2 GM/DL (32-36); Mean Corpuscular Hemoglobin 27 PG (27-34); Mean Corpuscular Volume 79.9 FL (87-102); Mean Platelet Volume 12.1 FL (9.6-12.0); Monocytes # 0.9 10*3/uL (0.11-0.8); Monocytes % 13.3 % (1.7-12.7); Neutrophils # 3.5 10*3/uL (1.4-7.4); Neutrophils % 52.2 % (38.7-73.9); Platelet Count 201 T/CUMM (130-400); Red Blood Count 4.37 MC/CUMM (3.8-5.5); Red Cell Distribution Width 19.8 % (9.3-17.3); White Blood Count 6.6 T/CUMM (4-12)
[2017-02-18 04:57] LABS: Calcium 8.6 MG/DL (8.5-10.1); Osmolality,Calculated 276.2 MOS/KG (273-304); Potassium 5.1 MMOL/L (3.5-5.1)
[2017-02-18] MEDS: CHOLECALCIFEROL 1,000 UNIT TABLET PO SCH (09:01)
[2017-02-18] MEDS: CARVEDILOL 6.25 MG TABLET PO SCH ×2 (09:02→21:28)
[2017-02-18] MEDS: ASPIRIN CHEW 81 MG TABLET PO SCH (09:03)
[2017-02-18] MEDS: SPIRONOLACTONE 50 MG TABLET PO SCH (09:03)
[2017-02-18] MEDS: FUROSEMIDE 40 MG/4 ML VIAL IV SCH ×2 (09:04→21:28)
[2017-02-18] MEDS: POLYETHYLENE GLYCOL POWDER 17 GM PACK PO SCH (09:05)
[2017-02-18] MEDS: BUDESONIDE/FORMOTEROL 160-4.5 INHALER 6 GM INH SCH ×2 (09:08→21:31)
[2017-02-18] MEDS: POTASSIUM CHLORIDE 20 MEQ TABLET PO SCH (09:09)
[2017-02-18] MEDS: LISINOPRIL 2.5 MG TABLET PO SCH ×2 (09:11→21:28)
[2017-02-18] MEDS: PANTOPRAZOLE 40 MG TABLET PO SCH (09:11)
--- NOTE | 2017-02-18 10:23 | Cardiology Progress Note ---
Assessment and Plan (1) Dyspnea Status: Acute Assessment and plan: Patient continues with volume overload will push Lasix to see if we can improve that. Current Visit: Yes (2) Acute on chronic congestive heart failure Status: Acute Current Visit: Yes (3) Cardiomyopathy Status: Acute Current Visit: Yes Qualifiers: Cardiomyopathy type: unspecified Qualified Code(s): I42.9 - Cardiomyopathy , unspecified Cardiology - PN: Subj Interval history: Patient continues with a distended abdomen. He may be better to attempt a therapeutic paracentesis. I do not know that we will get much volume off beyond what we have already been able to get off with her current diuretic dose. He is on Aldactone 100 a day I do not know that I have a lot more to add to the situation. Exam (Progress Note) - Constitutional Vitals: Period Temp Pulse Resp BP Sys/Hayden Pulse Ox Last 24 Hr 96.5 F-97.5 F 93-104 16-22 102-120/54-77 90-99 Exam: General:no acute distress. alert and oriented, mood and affect are normal HEENT: no new lesions, sclerae are clear, mouth and pharynx benign Neck: supple, trachea midline, no JVD noted Lungs: Moist rales left base. No rhonchi or wheezes noted.. CV: RRR no murmur rub or gallop is noted. Abd: soft and nontender, BSNA, no masses. Ext: no cyanosis, clubbing or edema Neuro: grossly intact without focal neurologic deficit. Result/EKG - Labs CBC & BMP: 02/18/17 03:56 02/18/17 03:56 Labs: Laboratory Results - last 24 hr 02/18/17 02/18/17 03:56 03:56 WBC 6.6 RBC 4.37 Hgb 11.6 L Hct 34.9 L MCV 79.9 L MCH 27 MCHC 33.2 RDW 19.8 H Plt Count 201 D MPV 12.1 H Neut % (Auto) 52.2 Lymph % (Auto) 33.3 [place] % (Auto) 13.3 H Eos % (Auto) 0.5 Baso % (Auto) 0.2 Neut # (Auto) 3.5 Lymph # (Auto) 2.2 [place] # (Auto) 0.9 H Eos # (Auto) 0.0 Baso # (Auto) 0.0 Immature Gran % 0.5 Nucleated RBC % 0.0 Immature Gran # 0.03 Nucleated RBCs # 0.00 Sodium 134 L Potassium 5.1 Chloride 99 Carbon Dioxide 27 Anion Gap 13.1 BUN 37 H Creatinine 1.30 GFR Calculation 72 BUN/Creatinine Ratio 28.00 H Glucose 105 Calculated Osmolality 276.2 Calcium 8.6 Magnesium 2.0
--- NOTE | 2017-02-18 11:33 | XRay Report ---
XR chest 1V portable Indication: Shortness of breath Comparison: Chest x-ray 02/15/2017 Technique: Portable AP chest was performed. Findings: The heart is minimally enlarged, stable. Pulmonary vasculature demonstrates no specific abnormality. Hilar structures demonstrate fairly symmetric appearance. The lungs demonstrate nonspecific hazy opacities in the lung bases that may in part reflect atelectasis. Right-sided pleural effusion remains present with little change in size suggested. Bones and soft tissues demonstrate multiple rib fractures stable in appearance to previous study. Impression: 1. Right-sided pleural effusion has little suggested change since comparison. 2. Overall appearance of chest suggests little interval change. 02/18/2017 11:29 AM PROCEDURE INTERPRETED AT [facility] DEPARTMENT OF RADIOLOGY Final Report Signed by: Dr. Milan Carlin
--- NOTE | 2017-02-18 12:28 | Discharge Summary ---
Discharge Plan - Discharge Medications No Action Cholecalciferol [Vitamin D3] 1,000 unit PO DAILY Furosemide Tab [Lasix Tab] 40 mg PO DAILY Potassium Chloride 20 meq PO BID Meloxicam [Mobic] 7.5 mg PO DAILY PRN PRN Reason: Pain Budesonide/Formoterol 160-4.5 [Symbicort 160-4.5] 2 puff INH BID Aspirin EC Tab 81 mg PO DAILY Albuterol Inhaler [Proventil Inhaler] 2 puff INH Q6H PRN PRN Reason: Shortness Of Breath/Wheezing Polyethylene Glycol 3350 17 gm PO DAILY Metformin HCl 850 mg PO BID Ondansetron HCl 4 mg PO DAILY PRN PRN Reason: Nausea Metoprolol Succinate 25 mg PO BID Omeprazole 20 mg PO DAILY Sildenafil Citrate [Viagra] 100 mg PO DAILY PRN PRN Reason: Erectile Dysfunction - Follow Up or Referral - Forms/Instructions Exam - Constitutional Vitals: Period Temp Pulse Resp BP Sys/Hayden Pulse Ox Last 24 Hr 96.6 F-97.5 F 93-104 16-22 102-120/68-77 90-99 Discharge Results Procedures and tests throughout hospitalization: Pending Orders 02/15/17 10:44 Cytology Request Routine 02/19/17 04:00 BMP w/ Mg [Basic Metabolic Panel w/Mg] IN AM CBC [Comp Blood Count Auto Diff] IN AM Labs on day of discharge: Labs from last 24 hours 02/18/17 02/18/17 03:56 03:56 WBC 6.6 RBC 4.37 Hgb 11.6 L Hct 34.9 L MCV 79.9 L MCH 27 MCHC 33.2 RDW 19.8 H Plt Count 201 D MPV 12.1 H Neut % (Auto) 52.2 Lymph % (Auto) 33.3 [place] % (Auto) 13.3 H Eos % (Auto) 0.5 Baso % (Auto) 0.2 Neut # (Auto) 3.5 Lymph # (Auto) 2.2 [place] # (Auto) 0.9 H Eos # (Auto) 0.0 Baso # (Auto) 0.0 Immature Gran % 0.5 Nucleated RBC % 0.0 Immature Gran # 0.03 Nucleated RBCs # 0.00 Sodium 134 L Potassium 5.1 Chloride 99 Carbon Dioxide 27 Anion Gap 13.1 BUN 37 H Creatinine 1.30 GFR Calculation 72 BUN/Creatinine Ratio 28.00 H Glucose 105 Calculated Osmolality 276.2 Calcium 8.6 Magnesium 2.0 DS: Provider Date of admission: 02/14/17 17:33 Primary care physician: . No PCP Attending physician on admission: Enoc Sosa MD Consults: 02/14/17 18:54 Consult to Dietitian [CONS] Routine Reason for Dietitian: Other Consult Comment: computer generated 02/15/17 07:43 Consult to Physician [CONS] Routine Comment: Consulting Provider: 02/15/17 09:39 Consult to Physician [CONS] Routine Comment: Consulting Provider: Hernandez Jama Consulting Provider Notified: Yes Person Notified: FEDER[place] Date Notified: 02/15/17 Time Notified: 09:10 Consult Notification Comment: CONSULT TO GI 02/16/17 15:34 Consult to Occupational Therapy [CONS] Routine Reason for Occupational Therapy: Evaluate and Treat Consult to Physical Therapy [CONS] Routine Reason for Physical Therapy: Evaluate and Treat Discharging clinician: Marino Chen INFORMATION SUPPORT PROJECT MANAGER
--- NOTE | 2017-02-18 13:21 | Hospitalist Progress Note ---
Assessment and Plan (1) Acute on chronic congestive heart failure Status: Acute Current Visit: Yes (2) Hepatocellular carcinoma Status: Chronic Current Visit: Yes (3) Shortness of breath Status: Acute Current Visit: Yes (4) Sinus tachycardia Status: Acute Current Visit: Yes (5) Elevated troponin Status: Acute Current Visit: Yes Hospitalist: Subjective Interval history: Overnight patient reports sudden onset of sob with pain all the way across his chest and shoulder. His abdomen is more distended this morning. He is s/p paracentesis with 900cc removed 02/15/17. He is on lasix and spironolactone. Renal function is better, will continue to monitor. Will attempt for repeat paracentesis tomorrow, not sure how much will actually be able to be removed. This is a difficult case, his overall prognosis is quite poor. Exam - Constitutional Vitals: Period Temp Pulse Resp BP Sys/Hayden Pulse Ox Last 24 Hr 96.6 F-97.5 F 93-106 16-22 102-120/68-77 90-99 General appearance: over weight - Head Head exam: Present: normocephalic, atraumatic - Eye Eye exam: Present: EOMI Pupils: Present: VIKI - ENT ENT exam: Present: normal exam - Neck Neck exam: Present: normal inspection - Respiratory Respiratory exam: Present: clear to auscultation bilaterally. Absent: rhonchi, wheezes - Cardiovascular Cardiovascular exam: Present: regular rate and rhythm Results - Labs CBC & BMP: 02/18/17 03:56 02/18/17 03:56
[2017-02-18] MEDS: ENOXAPARIN 40 MG/0.4 ML SYRINGE SUBCUT SCH (18:02)
[2017-02-19 05:34] LABS: Basophils % 0.2 % (0.0-0.8); Eosinophils # 0.1 10*3/uL (0.0-0.87); Eosinophils % 1.1 % (0.00-10.9); Hematocrit 34.2 VOL% (42.0-52.0); Hemoglobin 11.6 GM/DL (14.0-18.0); Immature Granulocytes % 0.3 %; Immature Granulocytes Absolute 0.02 #; Lymphocytes # 2.2 10*3/uL (1.4-4.0); Lymphocytes % 34.8 % (21.2-54.2); Mean Corpuscular HGB Conc 33.9 GM/DL (32-36); Mean Corpuscular Hemoglobin 27 PG (27-34); Mean Corpuscular Volume 80.5 FL (87-102); Mean Platelet Volume 11.8 FL (9.6-12.0); Monocytes # 0.9 10*3/uL (0.11-0.8); Monocytes % 14.6 % (1.7-12.7); Platelet Count 221 T/CUMM (130-400); Red Blood Count 4.25 MC/CUMM (3.8-5.5); Red Cell Distribution Width 19.3 % (9.3-17.3); White Blood Count 6.2 T/CUMM (4-12)
[2017-02-19 06:03] LABS: Calcium 8.7 MG/DL (8.5-10.1); Magnesium 2.1 MG/DL (1.8-2.4); Osmolality,Calculated 270.7 MOS/KG (273-304); Potassium 4.7 MMOL/L (3.5-5.1)
[2017-02-19] MEDS: PANTOPRAZOLE 40 MG TABLET PO SCH (09:41)
[2017-02-19] MEDS: CHOLECALCIFEROL 1,000 UNIT TABLET PO SCH (09:41)
[2017-02-19] MEDS: LISINOPRIL 2.5 MG TABLET PO SCH ×2 (09:42→21:08)
[2017-02-19] MEDS: CARVEDILOL 6.25 MG TABLET PO SCH ×2 (09:42→21:09)
[2017-02-19] MEDS: SPIRONOLACTONE 50 MG TABLET PO SCH (09:42)
[2017-02-19] MEDS: ASPIRIN CHEW 81 MG TABLET PO SCH (09:43)
[2017-02-19] MEDS: BUDESONIDE/FORMOTEROL 160-4.5 INHALER 6 GM INH SCH ×2 (09:43→21:09)
[2017-02-19] MEDS: POTASSIUM CHLORIDE 20 MEQ TABLET PO SCH ×2 (09:43→21:08)
[2017-02-19] MEDS: POLYETHYLENE GLYCOL POWDER 17 GM PACK PO SCH (09:44)
--- NOTE | 2017-02-19 10:19 | Event Note ---
Targeted abdominal ultrasound shows only trace amounts of ascites, not enough for safe ultrasound-guided paracentesis. Paracentesis was, therefore, not performed.
--- NOTE | 2017-02-19 10:22 | Ultrasound Report ---
History: Ascites. Evaluate for paracentesis Date: 02/19/2017 Study: Abdominal ultrasound limited Comparison exam: February 15, 2017 Real-time ultrasound images are captured and archived. Sonography of the abdomen and pelvis was performed to evaluate for potential paracentesis. There are only trace amounts of ascites, not enough for safe ultrasound-guided paracentesis. Impression: Trace amounts of ascites, not enough for safe ultrasound-guided paracentesis PROCEDURE INTERPRETED AT [facility] DEPARTMENT OF RADIOLOGY Final Report Signed by: Dr. Thao Jama
[2017-02-19] MEDS: FUROSEMIDE 40 MG/4 ML VIAL IV SCH ×3 (10:29→18:32)
--- NOTE | 2017-02-19 10:48 | Gastrointestinal Progress Note ---
Assessment and Plan (1) Hepatocellular carcinoma Status: Chronic Assessment and plan: 02/19-Unable to proceed with paracentesis today, not enough fluid. Wt up 4 kg today noted. Continued SOB. Plan and addendum to follow by Dr Jama. 02/16-paracentesis with 900 cc removed. No complaint of abdominal pain. Records from [place]/[facility] still pending. Plan an addendum problem Dr. Jama. 02/15-Recent diagnosis of liver cancer at [facility] with history of Hepatitis C ( reported to be treated by patient). FIndings of ascites, elevated LFTS. For paracentesis today. Await records from [place]/[facility]. Plan and addendum to follow by Dr Jama. Current Visit: Yes Gastroenterology - PN: Subj Interval history: CC: Liver cancer Pt is awake and alert, up in the bathroom. He states that he is feeling about the same at this time. He reported that he is having continued shortness of breath at this time. He went for repeat paracentesis today however there was not enough fluid noted to remove. Abdomen is soft, nontender. his weight is up 4kg however uncertain as to exact accuracy of this. ROS: Denies SOB or chest pain Exam (Progress Note) - Constitutional Vitals: Period Temp Pulse Resp BP Sys/Hayden Pulse Ox Last 24 Hr 96.3 F-97.6 F 20-106 16-74 102-115/68-83 92-100 General appearance: normal weight, no acute distress - Head Head exam: Present: normal inspection, normocephalic - Eye Eye exam: Present: other (lids and conjunctiva unremarakble). Absent: scleral icterus - ENT ENT exam: Present: normal exam, normal oropharynx - Neck Neck exam: Present: normal inspection - Respiratory Respiratory exam: Present: clear to auscultation bilaterally. Absent: rales, rhonchi, wheezes - Cardiovascular Cardiovascular exam: Present: regular rate and rhythm. Absent: diastolic murmur , JVD, systolic murmur - GI/Abdominal GI/Abdominal exam: Present: normal bowel sounds, soft. Absent: ascites, distended, mass, organomegaly, tenderness - Extremities Exam Extremities exam: Present: normal inspection, full ROM - Back Exam Back exam: Present: normal inspection - Neurological Exam Neurological exam: Present: alert, oriented X3 - Psychiatric Psychiatric exam: Present: normal affect, normal mood - Skin Skin exam: Present: normal color, warm, dry Results - Labs CBC & BMP: 02/19/17 04:46 02/19/17 04:46 Lab Results: I have reviewed the past 24 hour labs
--- NOTE | 2017-02-19 13:45 | Physician Query Form ---
CLICK EDIT DOCUMENT TO SELECT QUERY ANSWER --> OK --> SIGN Ciara Carlin RN, CCDS Certified Clinical Test Engineering Manager W) [phone] (f) [phone] [email or web address] PROVIDERS: Make your selection(s) from the choices in EACH section by typing an "x" and enter comments in the comment section. Please use your independent medical judgment in providing your response. This request does not imply that any particular answer is desired or expected. CLINICAL INDICATORS: (Providers should not edit this section) The medical record indicates that the patient was admitted with CHF, Creatinine of 1.80 on the that has dropped to 1.30 on the and GFR of 48 on the at had has increased to 72 on the . A early comment of "renal insufficiency" stage III/ "uncertain if this is acute or chronic". Clarify which of the following most accurately represents the patient's renal status: ( ) Acute kidney injury (non-traumatic) ( ) Acute renal failure ( ) Acute renal failure with underlying Chronic Kidney Disease (CKD) - please provide stage below ( ) Acute renal failure with pathological renal lesion ( ) Acute renal failure with necrosis ( ) tubular ( ) medullary ( ) cortical ( ) CKD - please provide stage below ( ) End Stage Renal Disease ( ) Acute interstitial nephritis ( ) Hepatorenal syndrome (x ) Other, please specify: Acute renal failure on suspected CKD stage3 ( ) Clinically unable to determine Chronic Kidney Disease Stages Source: National Kidney Disease Foundation ( ) Stage I (eGFR > or = 90) ( ) Stage II (eGFR 60 - 89) ( ) Stage III (eGFR 30 - 59) ( ) Stage IV (eGFR 15 - 29) ( ) Stage V (eGFR < 15 or dialysis) COMMENTS: PLEASE ALSO DOCUMENT RESPONSE IN PROGRESS NOTES AND/OR DISCHARGE SUMMARY Use of terms such as suspected, likely, or probable (associated with a specific diagnosis that is being evaluated, monitored, or treated as if it exists) are acceptable and can be restated in the discharge summary if not ruled out. MTDD
--- NOTE | 2017-02-19 14:44 | Hospitalist Progress Note ---
Assessment and Plan (1) Acute on chronic congestive heart failure Status: Acute Assessment and plan: EF 15% Cardiology assisting Current Visit: Yes (2) Hepatocellular carcinoma Status: Chronic Assessment and plan: Recent diagnosis at [facility] per patient Current Visit: Yes (3) Shortness of breath Status: Acute Assessment and plan: Improving Current Visit: Yes (4) Sinus tachycardia Status: Acute Assessment and plan: Improving Current Visit: Yes (5) Elevated troponin Status: Acute Current Visit: Yes Hospitalist: Subjective Interval history: No acute events overnight. Patient reports that he feels a little better today. Still with noticeable johnson. Could not repeat paracentesis today, given not enough fluid. Cardiology and GI assisting. Continue diuresis. Exam - Constitutional Vitals: Period Temp Pulse Resp BP Sys/Hayden Pulse Ox Last 24 Hr 96.3 F-98 F 20-104 16-74 102-117/63-83 92-100 General appearance: over weight - Head Head exam: Present: normocephalic, atraumatic - Eye Eye exam: Present: EOMI Pupils: Present: VIKI - ENT ENT exam: Present: normal exam - Neck Neck exam: Present: normal inspection - Respiratory Respiratory exam: Present: clear to auscultation bilaterally. Absent: wheezes - Cardiovascular Cardiovascular exam: Present: regular rate and rhythm - GI/Abdominal GI/Abdominal exam: Present: normal bowel sounds, distended, soft. Absent: tenderness - Extremities Exam Extremities exam: Present: normal inspection - Back Exam Back exam: Present: normal inspection - Neurological Exam Neurological exam: Present: alert, oriented X3 - Psychiatric Psychiatric exam: Present: normal affect, normal mood - Skin Skin exam: Present: warm, intact Results - Labs CBC & BMP: 02/19/17 04:46 02/19/17 04:46
--- NOTE | 2017-02-19 16:04 | Cardiology Progress Note ---
Assessment and Plan - Time spent with patient Time spent with patient: Less than 30 minutes (1) Sinus tachycardia Status: Acute Assessment and plan: SEE PLAN OF CARE LISTED BELOW. Current Visit: Yes (2) Elevated troponin Status: Acute Assessment and plan: SEE PLAN OF CARE LISTED BELOW. Current Visit: Yes (3) Hepatocellular carcinoma Status: Chronic Assessment and plan: SEE PLAN OF CARE LISTED BELOW. Current Visit: Yes (4) Acute renal failure Status: Acute Assessment and plan: SEE PLAN OF CARE LISTED BELOW. Current Visit: Yes (5) Hepatitis C Status: Chronic Assessment and plan: SEE PLAN OF CARE LISTED BELOW. 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 Current Visit: Yes (7) Shortness of breath Status: Acute Assessment and plan: SEE PLAN OF CARE LISTED BELOW. Current Visit: Yes (8) Cardiomyopathy Status: Chronic Assessment and plan: SEE PLAN OF CARE LISTED BELOW. Current Visit: Yes Qualifiers: Cardiomyopathy type: unspecified Qualified Code(s): I42.9 - Cardiomyopathy , unspecified (9) Acute on chronic congestive heart failure Status: Acute Assessment and plan: SEE PLAN OF CARE LISTED BELOW. 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 GARCIA (NEW) SUMMARY: Mr. Wong, 66BM, has no known prior cardiac history. History of hepatocellular carcinoma, hepatitis C, ascites due to alcoholic hepatitis, hypertension and diabetes. Admitted February 15, 2017 with complaints of progressive shortness of breath, weakness and dizziness. Newly discovered cardiomyopathy (EF 15%). Troponins flat at 0.139-0.221 with normal CPK and CK-MB. EKG reveals ST-T wave abnormalities, no STEMI. Mr. Wong continues to have a distended abdomen. He was for therapeutic paracentesis but there was not enough fluid to proceed with this today. He continues to have some shortness of breath. He is on Aldactone 100mg po daily. ASSESSMENT/PLAN: 1. SINUS TACHYCARDIA - improved. Tolerating low-dose beta jorge at this point. 2. ELEVATED TROPONIN - troponin is flat. CPK and MB are normal. This is not an acute coronary syndrome. Not eligible for invasive workup given his multiple comorbidities. Continue with aspirin as able. 3. HEPATOCELLULAR CARCINOMA - continue current plan of care 4. RENAL INSUFFICIENCY - stage III. Uncertain if this is acute or chronic. 5. HEPATITIS C - continue current plan of care 6. ASCITIES DUE TO ALCOHOLIC HEPATITIS - status post paracentesis earlier during hospitalization. Continue current plan of care. 7. SHORTNESS OF BREATH - multifactorial. Initial chest x-ray reveals mild CHF and this has improved. Continue diuresis, afterload reduction. Strict I&O and daily weights. 8. CARDIOMYOPATHY - etiology undetermined and he is not a candidate for invasive workup. EF 15%. Continue with current plan of care. 9. ACUTE HFrEF - EF 15%, NYHA CLASS III. Continue with afterload reduction, diuresis, strict I&O and daily weights. Exam (Progress Note) - Constitutional Vitals: Period Temp Pulse Resp BP Sys/Hayden Pulse Ox Last 24 Hr 96.3 F-98 F 20-104 16-74 102-117/63-83 92-100 Exam: General: Present: Appears Well, No Apparent Distress. Pleasant and cooperative. Appears comfortable. HEENT: Present: PERRL, Normocephaly, atraumatic. Mucus Membranes Moist. No jaundice noted. Conjunctiva moist and clear, sclerae anicteric Neck: Present: Supple Neck, Midline Trachea, No Masses, No Bruit, No tenderness Cardiac: Present: Regular Rate and Rhythm, No Murmur Lungs: Present: Clear to auscultation bilaterally. No wheeze or rhonchi. Neuro: Present: Awake, alert, and oriented x3. Moves all extremities well without hemiparesis or paralysis. Grossly Intact. Absent: Resting Tremor, Essential Tremor Abdomen: Present: Active Bowel Sounds, No Masses, Non-Tender, firm, distended. No abdominal bruit or thrill noted. Skin: Present: Clear. Absent: Rash, No skin breakdown. Back: Normal inspection, no vertebral tenderness. Musculoskeletal: Present: No Fluid Collection, No Pain, Normal Range of Motion Extremities: Present: Normal Gait, No Clubbing, No Cyanosis, Upper Extr. Pulses 2+, Lower Extr. Pulses 2+, No edema. Capillary refill less than 3 seconds. Result/EKG - Labs CBC & BMP: 02/19/17 04:46 02/19/17 04:46 Lab Results: I have reviewed the past 24 hour labs Labs: Laboratory Results - last 24 hr 02/18/17 02/19/17 02/19/17 12:09 04:46 04:46 WBC 6.2 RBC 4.25 Hgb 11.6 L Hct 34.2 L MCV 80.5 L MCH 27 MCHC 33.9 RDW 19.3 H Plt Count 221 MPV 11.8 Neut % (Auto) 49.0 Lymph % (Auto) 34.8 [place] % (Auto) 14.6 H Eos % (Auto) 1.1 Baso % (Auto) 0.2 Neut # (Auto) 3.0 Lymph # (Auto) 2.2 [place] # (Auto) 0.9 H Eos # (Auto) 0.1 Baso # (Auto) 0.0 Immature Gran % 0.3 Nucleated RBC % 0.0 Immature Gran # 0.02 Nucleated RBCs # 0.00 Sodium 131 L Potassium 4.7 Chloride 96 L Carbon Dioxide 27 Anion Gap 12.7 BUN 39 H Creatinine 1.30 GFR Calculation 72 BUN/Creatinine Ratio 30.00 H Glucose 94 POC Glucose 125 H Calculated Osmolality 270.7 L Calcium 8.7 Magnesium 2.1 - EKG EKG results: interpreted by me, sinus rhythm
[2017-02-19] MEDS: ENOXAPARIN 40 MG/0.4 ML SYRINGE SUBCUT SCH (18:32)
[2017-02-20 05:09] LABS: Basophils % 0.3 % (0.0-0.8); Eosinophils % 0.6 % (0.00-10.9); Hematocrit 35.6 VOL% (42.0-52.0); Hemoglobin 11.9 GM/DL (14.0-18.0); Immature Granulocytes % 0.2 %; Immature Granulocytes Absolute 0.01 #; Lymphocytes # 2.9 10*3/uL (1.4-4.0); Lymphocytes % 44.1 % (21.2-54.2); Mean Corpuscular HGB Conc 33.4 GM/DL (32-36); Mean Corpuscular Hemoglobin 27 PG (27-34); Mean Platelet Volume 11.7 FL (9.6-12.0); Monocytes # 0.9 10*3/uL (0.11-0.8); Monocytes % 13.6 % (1.7-12.7); Neutrophils # 2.7 10*3/uL (1.4-7.4); Neutrophils % 41.2 % (38.7-73.9); Platelet Count 238 T/CUMM (130-400); Red Blood Count 4.45 MC/CUMM (3.8-5.5); Red Cell Distribution Width 19.3 % (9.3-17.3); White Blood Count 6.5 T/CUMM (4-12)
[2017-02-20 05:49] LABS: Albumin 3.2 G/DL (3.4-5.0); Bilirubin,Direct 0.5 MG/DL (0.0-0.20); Bilirubin,Indirect 0.6 MG/DL (0.0-1.0); Bilirubin,Total 1.1 MG/DL (0.2-1.0); Osmolality,Calculated 267.8 MOS/KG (273-304); Potassium 4.9 MMOL/L (3.5-5.1)
--- NOTE | 2017-02-20 10:30 | Gastrointestinal Progress Note ---
Assessment and Plan (1) Hepatocellular carcinoma Status: Chronic Assessment and plan: 02/20-weight up 1 kg today. Shortness of breath improved. LFTs noted to be trending downward from admission. No other changes at present time. Plan an addendum to follow Dr. Jama. 02/19-Unable to proceed with paracentesis today, not enough fluid. Wt up 4 kg today noted. Continued SOB. Plan and addendum to follow by Dr Jama. 02/16-paracentesis with 900 cc removed. No complaint of abdominal pain. Records from [place]/[facility] still pending. Plan an addendum problem Dr. Jama. 02/15-Recent diagnosis of liver cancer at [facility] with history of Hepatitis C ( reported to be treated by patient). FIndings of ascites, elevated LFTS. For paracentesis today. Await records from [place]. Plan and addendum to follow by Dr Jama. Current Visit: Yes Gastroenterology - PN: Subj Interval history: CC: Hepatocellular carcinoma Patient is seen awake and alert lying in bed. States he had a more restful night last night. Denies any increasing shortness of breath at this time. Abdomen is soft, nontender. Weight is noted up to be an additional kilograms since yesterday. Continued edema to BLE. He is oriented well today 3. LFTs are noted to be trending downward from admission. Bilirubin 1.1, AST 80, ALT 65 , alkaline phosphatase 111. ROS: Denies shortness of breath or chest pain Exam (Progress Note) - Constitutional Vitals: Period Temp Pulse Resp BP Sys/Hayden Pulse Ox Last 24 Hr 96.8 F-98 F 94-104 18-21 101-125/63-83 93-100 General appearance: normal weight, no acute distress - Head Head exam: Present: normal inspection, normocephalic - Eye Eye exam: Present: other (Lids and conjunctive are unremarkable). Absent: scleral icterus - ENT ENT exam: Present: normal exam, normal oropharynx - Neck Neck exam: Present: normal inspection - Respiratory Respiratory exam: Present: clear to auscultation bilaterally. Absent: rales, rhonchi, wheezes - Cardiovascular Cardiovascular exam: Present: regular rate and rhythm. Absent: diastolic murmur , JVD, systolic murmur - GI/Abdominal GI/Abdominal exam: Present: normal bowel sounds, soft. Absent: ascites, distended, mass, organomegaly, tenderness - Extremities Exam Extremities exam: Present: normal inspection, full ROM - Back Exam Back exam: Present: normal inspection - Neurological Exam Neurological exam: Present: alert, oriented X3 - Psychiatric Psychiatric exam: Present: normal affect, normal mood - Skin Skin exam: Present: normal color, warm, dry Results - Labs CBC & BMP: 02/20/17 04:33 02/20/17 04:33 Lab Results: I have reviewed the past 24 hour labs
[2017-02-20] MEDS: ASPIRIN CHEW 81 MG TABLET PO SCH (11:34)
[2017-02-20] MEDS: CHOLECALCIFEROL 1,000 UNIT TABLET PO SCH (11:34)
[2017-02-20] MEDS: POTASSIUM CHLORIDE 20 MEQ TABLET PO SCH ×2 (11:35→22:28)
[2017-02-20] MEDS: SPIRONOLACTONE 50 MG TABLET PO SCH (11:35)
[2017-02-20] MEDS: PANTOPRAZOLE 40 MG TABLET PO SCH (11:35)
[2017-02-20] MEDS: CARVEDILOL 6.25 MG TABLET PO SCH ×2 (11:36→22:29)
[2017-02-20] MEDS: LISINOPRIL 2.5 MG TABLET PO SCH ×2 (11:36→22:29)
[2017-02-20] MEDS: FUROSEMIDE 40 MG/4 ML VIAL IV SCH ×2 (11:37→18:35)
[2017-02-20] MEDS: BUDESONIDE/FORMOTEROL 160-4.5 INHALER 6 GM INH SCH ×2 (11:44→22:30)
[2017-02-20] MEDS: POLYETHYLENE GLYCOL POWDER 17 GM PACK PO SCH (11:44)
--- NOTE | 2017-02-20 13:00 | Cardiology Progress Note ---
Assessment and Plan - Time spent with patient Time spent with patient: Less than 30 minutes (1) Sinus tachycardia Status: Acute Assessment and plan: SEE PLAN OF CARE LISTED BELOW. Current Visit: Yes (2) Elevated troponin Status: Acute Assessment and plan: SEE PLAN OF CARE LISTED BELOW. Current Visit: Yes (3) Hepatocellular carcinoma Status: Chronic Assessment and plan: SEE PLAN OF CARE LISTED BELOW. Current Visit: Yes (4) Acute renal failure Status: Acute Assessment and plan: SEE PLAN OF CARE LISTED BELOW. Current Visit: Yes (5) Hepatitis C Status: Chronic Assessment and plan: SEE PLAN OF CARE LISTED BELOW. 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 Current Visit: Yes (7) Shortness of breath Status: Acute Assessment and plan: SEE PLAN OF CARE LISTED BELOW. Current Visit: Yes (8) Cardiomyopathy Status: Chronic Assessment and plan: SEE PLAN OF CARE LISTED BELOW. Current Visit: Yes Qualifiers: Cardiomyopathy type: unspecified Qualified Code(s): I42.9 - Cardiomyopathy , unspecified (9) Acute on chronic congestive heart failure Status: Acute Assessment and plan: SEE PLAN OF CARE LISTED BELOW. 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 GARCIA (NEW) SUMMARY: Mr. Wong, 66BM, has no known prior cardiac history. History of hepatocellular carcinoma, hepatitis C, ascites due to alcoholic hepatitis, hypertension and diabetes. Admitted February 15, 2017 with complaints of progressive shortness of breath, weakness and dizziness. Newly discovered cardiomyopathy (EF 15%). Troponins flat at 0.139-0.221 with normal CPK and CK-MB. EKG reveals ST-T wave abnormalities, no STEMI. Mr. Wong continues to have a distended abdomen. He was for therapeutic paracentesis but there was not enough fluid to proceed with this today. He continues to have orthopnea but is diuresing fairly well. He is on Aldactone 100mg po daily and he continues to have a firm, distended abdomen without significant ascites. Given his poor prognosis, would defer further cardiac workup for etiology of cardiomyopathy at this time. Blood pressure and heart rate stable today. ASSESSMENT/PLAN: 1. SINUS TACHYCARDIA - improved. Tolerating low-dose beta jorge at this point. 2. ELEVATED TROPONIN - troponin is flat. CPK and MB are normal. This is not an acute coronary syndrome. Not eligible for invasive workup given his multiple comorbidities. Continue with aspirin as able. 3. HEPATOCELLULAR CARCINOMA - continue current plan of care 4. RENAL INSUFFICIENCY - stage III. Uncertain if this is acute or chronic. 5. HEPATITIS C - continue current plan of care 6. ASCITIES DUE TO ALCOHOLIC HEPATITIS - status post paracentesis earlier during hospitalization. Continue current plan of care. 7. SHORTNESS OF BREATH - multifactorial. Initial chest x-ray reveals mild CHF and this has improved. Continue diuresis, afterload reduction. Strict I&O and daily weights. 8. CARDIOMYOPATHY - etiology undetermined and he is not a candidate for invasive workup. EF 15%. Continue with current plan of care. 9. ACUTE HFrEF - EF 15%, NYHA CLASS III. Continue with afterload reduction, diuresis, strict I&O and daily weights. Exam (Progress Note) - Constitutional Vitals: Period Temp Pulse Resp BP Sys/Hayden Pulse Ox Last 24 Hr 96.8 F-97.9 F 94-104 18-21 101-125/68-83 93-100 Exam: General: Present: Appears Well, No Apparent Distress. Pleasant and cooperative. Appears comfortable. HEENT: Present: PERRL, Normocephaly, atraumatic. Mucus Membranes Moist. No jaundice noted. Conjunctiva moist and clear, sclerae anicteric Neck: Present: Supple Neck, Midline Trachea, No Masses, No Bruit, No tenderness Cardiac: Present: Regular Rate and Rhythm, No Murmur Lungs: Present: Faint posterior basilar crackles, otherwise clear to auscultation bilaterally. No wheeze or rhonchi. Neuro: Present: Awake, alert, and oriented x3. Moves all extremities well without hemiparesis or paralysis. Grossly Intact. Absent: Resting Tremor, Essential Tremor Abdomen: Present: Active Bowel Sounds, No Masses, Non-Tender, firm, distended. No abdominal bruit or thrill noted. Skin: Present: Clear. Absent: Rash, No skin breakdown. Back: Normal inspection, no vertebral tenderness. Musculoskeletal: Present: No Fluid Collection, No Pain, Normal Range of Motion Extremities: Present: Normal Gait, No Clubbing, No Cyanosis, Upper Extr. Pulses 2+, Lower Extr. Pulses 2+, No edema. Capillary refill less than 3 seconds. Result/EKG - Labs CBC & BMP: 02/20/17 04:33 02/20/17 04:33 Lab Results: I have reviewed the past 24 hour labs Labs: Laboratory Results - last 24 hr 02/20/17 02/20/17 04:33 04:33 WBC 6.5 RBC 4.45 Hgb 11.9 L Hct 35.6 L MCV 80.0 L MCH 27 MCHC 33.4 RDW 19.3 H Plt Count 238 MPV 11.7 Neut % (Auto) 41.2 Lymph % (Auto) 44.1 [place] % (Auto) 13.6 H Eos % (Auto) 0.6 Baso % (Auto) 0.3 Neut # (Auto) 2.7 Lymph # (Auto) 2.9 [place] # (Auto) 0.9 H Eos # (Auto) 0.0 Baso # (Auto) 0.0 Immature Gran % 0.2 Nucleated RBC % 0.0 Immature Gran # 0.01 Nucleated RBCs # 0.00 Sodium 130 L Potassium 4.9 Chloride 93 L Carbon Dioxide 27 Anion Gap 14.9 BUN 37 H Creatinine 1.40 H GFR Calculation 66 BUN/Creatinine Ratio 26.00 H Glucose 86 Calculated Osmolality 267.8 L Calcium 9.0 Magnesium 2.0 Total Bilirubin 1.10 H Direct Bilirubin 0.50 H Indirect Bilirubin 0.6 AST 80 H ALT 65 H Alkaline Phosphatase 111 Total Protein 9.0 H Albumin 3.2 L - EKG EKG results: interpreted by me, sinus rhythm
--- NOTE | 2017-02-20 15:31 | Hospitalist Progress Note ---
Hospitalist: Subjective Interval history: Pt states SOB and weakness is better. No chest pain. Still with abdominal swelling. Appetite ok. BM without blood or melena. Good UOP per pt. Exam - Constitutional Vitals: Period Temp Pulse Resp BP Sys/Hayden Pulse Ox Last 24 Hr 96.8 F-97.9 F 94-104 18-21 101-125/68-83 93-100 Exam: chronically ill appearing, lying on bed in NAD RRR no M CTAB nonlabored Soft, distended, hypoactive bowel sounds. NTTP Warm no c/c/ trace LE edema Results - Labs CBC & BMP: 02/20/17 04:33 02/20/17 04:33 - Impressions (1) Acute on chronic systolic congestive heart failure (EF15%) Status: Acute Assessment and plan: EF 15% Cardiology assisting. Still on IV Lasix, lisinopril, coreg and aldactone. Serial labs. 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 F/U with oncologist outpt. Current Visit: Yes (3) Shortness of breath Status: Acute Assessment and plan: Improving Current Visit: Yes (4) Sinus tachycardia Status: Acute Assessment and plan: Improving Current Visit: Yes (5) Elevated troponin Status: Acute Current Visit: Yes - not ACS per cardiology may need to consider hospice. I have discussed with patient and he wants to think about this further. D/W pt and all questions answered.
[2017-02-20] MEDS: ENOXAPARIN 40 MG/0.4 ML SYRINGE SUBCUT SCH (18:39)
[2017-02-21 06:16] LABS: Basophils % 0.5 % (0.0-0.8); Eosinophils # 0.1 10*3/uL (0.0-0.87); Eosinophils % 0.9 % (0.00-10.9); Hematocrit 31.1 VOL% (42.0-52.0); Hemoglobin 10.6 GM/DL (14.0-18.0); Immature Granulocytes % 0.3 %; Immature Granulocytes Absolute 0.02 #; Lymphocytes # 2.6 10*3/uL (1.4-4.0); Lymphocytes % 40.4 % (21.2-54.2); Mean Corpuscular HGB Conc 34.1 GM/DL (32-36); Mean Corpuscular Hemoglobin 27 PG (27-34); Mean Corpuscular Volume 78.7 FL (87-102); Mean Platelet Volume 11.9 FL (9.6-12.0); Monocytes # 1.1 10*3/uL (0.11-0.8); Neutrophils # 2.6 10*3/uL (1.4-7.4); Neutrophils % 40.9 % (38.7-73.9); Platelet Count 248 T/CUMM (130-400); Red Blood Count 3.95 MC/CUMM (3.8-5.5); Red Cell Distribution Width 18.8 % (9.3-17.3); White Blood Count 6.4 T/CUMM (4-12)
[2017-02-21 06:41] LABS: Eosinophils 3 % (0-10); Hypochromasia 1+; Lymphocytes 37 % (20-55); Platelet Estimate Adequate; Segmented Neutrophils 48 % (50-85); Total Cells Counted 100
[2017-02-21 06:42] LABS: Target Cells Few
[2017-02-21 06:43] LABS: Calcium 9.2 MG/DL (8.5-10.1); Osmolality,Calculated 269.5 MOS/KG (273-304); Potassium 4.6 MMOL/L (3.5-5.1)
[2017-02-21] MEDS: CARVEDILOL 6.25 MG TABLET PO SCH ×2 (09:06→20:44)
[2017-02-21] MEDS: SPIRONOLACTONE 50 MG TABLET PO SCH (09:06)
[2017-02-21] MEDS: LISINOPRIL 2.5 MG TABLET PO SCH ×2 (09:07→20:43)
[2017-02-21] MEDS: PANTOPRAZOLE 40 MG TABLET PO SCH (09:07)
[2017-02-21] MEDS: ASPIRIN CHEW 81 MG TABLET PO SCH (09:07)
[2017-02-21] MEDS: CHOLECALCIFEROL 1,000 UNIT TABLET PO SCH (09:07)
[2017-02-21] MEDS: POLYETHYLENE GLYCOL POWDER 17 GM PACK PO SCH (09:08)
[2017-02-21] MEDS: POTASSIUM CHLORIDE 20 MEQ TABLET PO SCH ×2 (09:08→20:43)
[2017-02-21] MEDS: BUDESONIDE/FORMOTEROL 160-4.5 INHALER 6 GM INH SCH ×2 (09:08→20:44)
[2017-02-21] MEDS: FUROSEMIDE 40 MG/4 ML VIAL IV SCH ×2 (09:09→15:46)
--- NOTE | 2017-02-21 11:32 | Cardiology Progress Note ---
Assessment and Plan (1) Sinus tachycardia Status: Acute Assessment and plan: SEE PLAN OF CARE LISTED BELOW. Current Visit: Yes (2) Elevated troponin Status: Acute Assessment and plan: SEE PLAN OF CARE LISTED BELOW. Current Visit: Yes (3) Hepatocellular carcinoma Status: Chronic Assessment and plan: SEE PLAN OF CARE LISTED BELOW. Current Visit: Yes (4) Acute renal failure Status: Acute Assessment and plan: SEE PLAN OF CARE LISTED BELOW. Current Visit: Yes (5) Hepatitis C Status: Chronic Assessment and plan: SEE PLAN OF CARE LISTED BELOW. 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 Current Visit: Yes (7) Shortness of breath Status: Acute Assessment and plan: SEE PLAN OF CARE LISTED BELOW. Current Visit: Yes (8) Cardiomyopathy Status: Chronic Assessment and plan: SEE PLAN OF CARE LISTED BELOW. Current Visit: Yes Qualifiers: Cardiomyopathy type: unspecified Qualified Code(s): I42.9 - Cardiomyopathy , unspecified (9) Acute on chronic congestive heart failure Status: Acute Assessment and plan: SEE PLAN OF CARE LISTED BELOW. 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 GARCIA (NEW) SUMMARY: Mr. Wong, 66BM, has no known prior cardiac history. History of hepatocellular carcinoma, hepatitis C, ascites due to alcoholic hepatitis, hypertension and diabetes. Admitted February 15, 2017 with complaints of progressive shortness of breath, weakness and dizziness. Newly discovered cardiomyopathy (EF 15%). Troponins flat at 0.139-0.221 with normal CPK and CK-MB. EKG reveals ST-T wave abnormalities, no STEMI. Mr. Wong was for therapeutic paracentesis but there was not enough fluid to proceed with this. His abdominal distention has finally begun to improve. His abdomen is much softer today than it has been the past several days and seems to be slightly less distended today. He is on Aldactone 100mg po daily and has been diuresing well. His weight has gone from 174# yesterday to 167# today. He reports his orthopnea has improved and appears to be resting comfortably today. He does wear continuous O2 at home. Given his poor prognosis, would defer further cardiac workup for etiology of cardiomyopathy at this time. H&H is stable. Creatinine 1.4 today. Potassium 4.6. He has had frequent PVCs today and had a short 10 beat run of NSVT this morning. He is on Coreg 6.25mg PO BID. We' ll increase his beta jorge as his blood pressure allows. ASSESSMENT/PLAN: 1. SINUS TACHYCARDIA - improved. Tolerating low-dose beta jorge at this point. 2. ELEVATED TROPONIN - troponin is flat. CPK and MB are normal. This is not an acute coronary syndrome. Not eligible for invasive workup given his multiple comorbidities. Continue with aspirin as able. 3. HEPATOCELLULAR CARCINOMA - continue current plan of care 4. RENAL INSUFFICIENCY - stage III. Uncertain if this is acute or chronic. 5. HEPATITIS C - continue current plan of care 6. ASCITIES DUE TO ALCOHOLIC HEPATITIS - status post paracentesis earlier during hospitalization. Continue current plan of care. 7. SHORTNESS OF BREATH - multifactorial. Initial chest x-ray reveals mild CHF and this has improved. Continue diuresis, afterload reduction. Strict I&O and daily weights. 8. CARDIOMYOPATHY - etiology undetermined and he is not a candidate for invasive workup. EF 15%. Continue with current plan of care. 9. ACUTE HFrEF - EF 15%, NYHA CLASS III. Continue with afterload reduction, diuresis, strict I&O and daily weights. Exam (Progress Note) - Constitutional Vitals: Period Temp Pulse Resp BP Sys/Hayden Pulse Ox Last 24 Hr 96.9 F-98.0 F 93-96 18-20 98-129/71-78 97-100 Exam: General: Present: Appears Well, No Apparent Distress. Pleasant and cooperative. Appears comfortable. HEENT: Present: PERRL, Normocephaly, atraumatic. Mucus Membranes Moist. No jaundice noted. Conjunctiva moist and clear, sclerae anicteric Neck: Present: Supple Neck, Midline Trachea, No Masses, No Bruit, No tenderness Cardiac: Present: Regular Rate and Rhythm, No Murmur Lungs: Present: clear to auscultation bilaterally. No wheeze or rhonchi. Neuro: Present: Awake, alert, and oriented x3. Moves all extremities well without hemiparesis or paralysis. Grossly Intact. Absent: Resting Tremor, Essential Tremor Abdomen: Present: Active Bowel Sounds, No Masses, Non-Tender, Soft, less distended. No abdominal bruit or thrill noted. Skin: Present: Clear. Absent: Rash, No skin breakdown. Back: Normal inspection, no vertebral tenderness. Musculoskeletal: Present: No Fluid Collection, No Pain, Normal Range of Motion Extremities: Present: Normal Gait, No Clubbing, No Cyanosis, Upper Extr. Pulses 2+, Lower Extr. Pulses 2+, No edema. Capillary refill less than 3 seconds. Result/EKG - Labs CBC & BMP: 02/21/17 05:11 02/21/17 05:11 Lab Results: I have reviewed the past 24 hour labs Labs: Laboratory Results - last 24 hr 02/21/17 02/21/17 05:11 05:11 WBC 6.4 RBC 3.95 Hgb 10.6 L Hct 31.1 L MCV 78.7 L MCH 27 MCHC 34.1 RDW 18.8 H Plt Count 248 MPV 11.9 Neut % (Auto) 40.9 Lymph % (Auto) 40.4 [place] % (Auto) 17.0 H Eos % (Auto) 0.9 Baso % (Auto) 0.5 Neut # (Auto) 2.6 Lymph # (Auto) 2.6 [place] # (Auto) 1.1 H Eos # (Auto) 0.1 Baso # (Auto) 0.0 Total Counted 100 Immature Gran % 0.3 Nucleated RBC % 0.0 Immature Gran # 0.02 Segmented Neutrophils 48 L Lymphocytes 37 Monocytes 12 Eosinophils 3 Nucleated RBCs # 0.00 Platelet Estimate Adequate Hypochromasia 1+ Target Cells Few Morphology Comment Sodium 132 L Potassium 4.6 Chloride 95 L Carbon Dioxide 26 Anion Gap 15.6 H BUN 33 H Creatinine 1.40 H GFR Calculation 65 BUN/Creatinine Ratio 23.00 H Glucose 86 Calculated Osmolality 269.5 L Calcium 9.2 Magnesium 2.0 - EKG EKG results: interpreted by me, sinus rhythm
--- NOTE | 2017-02-21 16:24 | Hospitalist Progress Note ---
Hospitalist: Subjective Interval history: SOB better. No cp. No fever. Tolerating po. Still with abd distention Exam - Constitutional Vitals: Period Temp Pulse Resp BP Sys/Hayden Pulse Ox Last 24 Hr 96.9 F-98.0 F 93-96 18-20 93-129/62-78 99-100 Exam: chronically ill appearing, lying on bed in NAD RRR no M CTAB nonlabored Soft, distended, hypoactive bowel sounds. NTTP Warm no c/c/ trace LE edema Results - Labs CBC & BMP: 02/21/17 05:11 02/21/17 05:11 - Impressions (1) Acute on chronic systolic congestive heart failure (EF15%) Status: Acute Assessment and plan: EF 15% Cardiology assisting. Still on IV Lasix, lisinopril, coreg and aldactone. Serial labs. 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 F/U with oncologist outpt. Current Visit: Yes (3) Shortness of breath Status: Acute Assessment and plan: Improving Current Visit: Yes (4) Sinus tachycardia Status: Acute Assessment and plan: Improving Current Visit: Yes (5) Elevated troponin Status: Acute Current Visit: Yes - not ACS per cardiology may need to consider hospice. I have discussed with patient and he is still considering. D/W pt and all questions answered. Dispo: dc once cleared by cardiology
[2017-02-21] MEDS: ENOXAPARIN 40 MG/0.4 ML SYRINGE SUBCUT SCH (18:00)
[2017-02-22 06:46] LABS: Basophils % 0.3 % (0.0-0.8); Eosinophils # 0.1 10*3/uL (0.0-0.87); Eosinophils % 0.8 % (0.00-10.9); Hematocrit 34.6 VOL% (42.0-52.0); Hemoglobin 11.7 GM/DL (14.0-18.0); Immature Granulocytes % 0.3 %; Immature Granulocytes Absolute 0.02 #; Lymphocytes # 2.3 10*3/uL (1.4-4.0); Lymphocytes % 38.6 % (21.2-54.2); Mean Corpuscular HGB Conc 33.8 GM/DL (32-36); Mean Corpuscular Hemoglobin 27 PG (27-34); Mean Corpuscular Volume 78.8 FL (87-102); Mean Platelet Volume 11.7 FL (9.6-12.0); Monocytes # 1.1 10*3/uL (0.11-0.8); Monocytes % 18.6 % (1.7-12.7); Neutrophils # 2.4 10*3/uL (1.4-7.4); Neutrophils % 41.4 % (38.7-73.9); Platelet Count 197 T/CUMM (130-400); Red Blood Count 4.39 MC/CUMM (3.8-5.5); Red Cell Distribution Width 19.1 % (9.3-17.3); White Blood Count 5.9 T/CUMM (4-12)
[2017-02-22 07:29] LABS: Eosinophils 3 % (0-10); Lymphocytes 43 % (20-55); Segmented Neutrophils 42 % (50-85); Total Cells Counted 100
[2017-02-22 07:30] LABS: Hypochromasia 2+; Microcytosis Slight
[2017-02-22 07:46] LABS: Calcium 8.2 MG/DL (8.5-10.1); Magnesium 1.9 MG/DL (1.8-2.4); Osmolality,Calculated 266.7 MOS/KG (273-304); Potassium 4.6 MMOL/L (3.5-5.1)
[2017-02-22] MEDS: ASPIRIN CHEW 81 MG TABLET PO SCH (08:38)
[2017-02-22] MEDS: PANTOPRAZOLE 40 MG TABLET PO SCH (08:38)
[2017-02-22] MEDS: POTASSIUM CHLORIDE 20 MEQ TABLET PO SCH ×2 (08:38→21:39)
[2017-02-22] MEDS: LISINOPRIL 2.5 MG TABLET PO SCH ×2 (08:39→21:39)
[2017-02-22] MEDS: CARVEDILOL 6.25 MG TABLET PO SCH ×2 (08:39→21:39)
[2017-02-22] MEDS: CHOLECALCIFEROL 1,000 UNIT TABLET PO SCH (08:39)
[2017-02-22] MEDS: SPIRONOLACTONE 50 MG TABLET PO SCH (08:39)
[2017-02-22] MEDS: BUDESONIDE/FORMOTEROL 160-4.5 INHALER 6 GM INH SCH ×2 (08:40→21:42)
[2017-02-22] MEDS: FUROSEMIDE 40 MG/4 ML VIAL IV SCH (08:41)
[2017-02-22] MEDS: POLYETHYLENE GLYCOL POWDER 17 GM PACK PO SCH (08:49)
--- NOTE | 2017-02-22 13:53 | Cardiology Progress Note ---
Assessment and Plan (1) Acute on chronic congestive heart failure Status: Acute Assessment and plan: 66-year-old male, cirrhosis, hepatitis C, hepatocellular carcinoma, cardiomyopathy, CHF, improving, SVT, suggestive of PAT. SOB improved. Diuresing fairly. Abdomen distension improved. Cont Lasix. Mild hyponatremia. Switch Lasix to p.o. 80 mg twice daily. Continue medical management of cardiomyopathy. PSVT, suggestive of PAT. borderline blood pressure. Continue Coreg. Add Cardizem CD 120 mg daily. Cont ACEI Given his poor prognosis, I would defer cardiac workup for etiology of cardiomyopathy at this time. [facility] Current Visit: Yes (2) Hepatocellular carcinoma Status: Chronic Current Visit: Yes (3) Ascites due to alcoholic hepatitis Status: Chronic Current Visit: Yes (4) Hepatitis C Status: Chronic Current Visit: Yes (5) Shortness of breath Status: Acute Current Visit: Yes (6) Dizziness Status: Resolved Current Visit: Yes (7) Weakness Status: Acute Current Visit: Yes (8) Acute renal failure Status: Acute Current Visit: Yes Cardiology - PN: Subj Interval history: He is feeling fine, shortness of breath resolves. Still has occasional runs of paroxysmal atrial tachycardia, mildly symptomatic, despite prominent RVR. Diuresed well with IV Lasix. Exam (Progress Note) - Constitutional Vitals: Period Temp Pulse Resp BP Sys/Hayden Pulse Ox Last 24 Hr 96.5 F-99.0 F 85-100 18-22 91-106/60-72 95-100 General appearance: normal weight, no acute distress - Head Head exam: Present: normal inspection, normocephalic - Eye Eye exam: Absent: conjunctival injection Pupils: Absent: dilated - ENT ENT exam: Present: normal external ear exam - Neck Neck exam: Present: normal inspection - Respiratory Respiratory exam: Present: clear to auscultation bilaterally - Cardiovascular Cardiovascular exam: Present: regular rate and rhythm - GI/Abdominal GI/Abdominal exam: Present: normal bowel sounds, distended. Absent: guarding - Extremities Exam Extremities exam: Present: normal inspection, normal capillary refill, edema (1+ ) - Neurological Exam Neurological exam: Present: alert, oriented X3 - Psychiatric Psychiatric exam: Present: normal affect, normal mood - Skin Skin exam: Present: normal color, warm. Absent: cyanosis Result/EKG - Labs CBC & BMP: 02/22/17 04:00 02/22/17 07:00 Lab Results: I have reviewed the past 24 hour labs Labs: Laboratory Results - last 24 hr 02/22/17 02/22/17 04:00 07:00 WBC 5.9 RBC 4.39 Hgb 11.7 L Hct 34.6 L MCV 78.8 L MCH 27 MCHC 33.8 RDW 19.1 H Plt Count 197 D MPV 11.7 Neut % (Auto) 41.4 Lymph % (Auto) 38.6 [place] % (Auto) 18.6 H Eos % (Auto) 0.8 Baso % (Auto) 0.3 Neut # (Auto) 2.4 Lymph # (Auto) 2.3 [place] # (Auto) 1.1 H Eos # (Auto) 0.1 Baso # (Auto) 0.0 Total Counted 100 Immature Gran % 0.3 Nucleated RBC % 0.0 Immature Gran # 0.02 Segmented Neutrophils 42 L Lymphocytes 43 Monocytes 12 Eosinophils 3 Nucleated RBCs # 0.00 Hypochromasia 2+ Microcytosis Slight Sodium 131 L Potassium 4.6 Chloride 96 L Carbon Dioxide 26 Anion Gap 13.6 BUN 30 H Creatinine 1.20 GFR Calculation 78 BUN/Creatinine Ratio 25.00 H Glucose 79 Calculated Osmolality 266.7 L Calcium 8.2 L Magnesium 1.9 - EKG EKG results: interpreted by me
[2017-02-22] MEDS: DILTIAZEM CD 120 MG CAPSULE PO SCH (14:22)
--- NOTE | 2017-02-22 15:34 | Hospitalist Progress Note ---
Hospitalist: Subjective Interval history: SOB and abd swelling better per pt. No fever. Tolerating po. No abd pain. No lightheadedness or dizziness. He states he is not interested in HH or hospice at this time. Exam - Constitutional Vitals: Period Temp Pulse Resp BP Sys/Hayden Pulse Ox Last 24 Hr 96.5 F-99.0 F 84-100 18-22 91-106/60-72 95-100 Exam: chronically ill appearing, lying on bed in NAD RRR no M CTAB nonlabored Soft, distended, hypoactive bowel sounds. NTTP Warm no c/c/ trace LE edema Results - Labs CBC & BMP: 02/22/17 04:00 02/22/17 07:00 - Impressions (1) Acute on chronic systolic congestive heart failure (EF15%) Status: Acute Assessment and plan: EF 15% Cardiology assisting. IV Lasix changed to po. Cont lisinopril, coreg and aldactone. Serial labs. 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 per patient. F/U with oncologist outpt. Current Visit: Yes (3) Shortness of breath Status: Acute Assessment and plan: Improving Current Visit: Yes (4) Sinus tachycardia Status: Acute Assessment and plan: Improved Current Visit: Yes (5) Elevated troponin Status: Acute Current Visit: Yes - not ACS per cardiology I think pt needs to consider hospice but he has declined this. Overall prognosis is poor. Since on oral medication, if cardiology agrees, will consider dc in am. D/W pt and all questions answered. Dispo: dc once cleared by cardiology
[2017-02-22] MEDS: FUROSEMIDE 80 MG TABLET PO SCH (18:18)
[2017-02-22] MEDS: ENOXAPARIN 40 MG/0.4 ML SYRINGE SUBCUT SCH (18:19)
[2017-02-23 05:18] LABS: Basophils % 0.3 % (0.0-0.8); Eosinophils % 0.6 % (0.00-10.9); Hematocrit 34.2 VOL% (42.0-52.0); Hemoglobin 11.7 GM/DL (14.0-18.0); Immature Granulocytes % 0.2 %; Immature Granulocytes Absolute 0.01 #; Lymphocytes # 2.4 10*3/uL (1.4-4.0); Lymphocytes % 36.8 % (21.2-54.2); Mean Corpuscular HGB Conc 34.2 GM/DL (32-36); Mean Corpuscular Hemoglobin 27 PG (27-34); Mean Corpuscular Volume 79.2 FL (87-102); Mean Platelet Volume 11.2 FL (9.6-12.0); Monocytes # 1.1 10*3/uL (0.11-0.8); Monocytes % 17.1 % (1.7-12.7); Neutrophils # 2.9 10*3/uL (1.4-7.4); Platelet Count 200 T/CUMM (130-400); Red Blood Count 4.32 MC/CUMM (3.8-5.5); Red Cell Distribution Width 18.6 % (9.3-17.3); White Blood Count 6.5 T/CUMM (4-12)
[2017-02-23 05:44] LABS: Calcium 8.7 MG/DL (8.5-10.1); Magnesium 1.9 MG/DL (1.8-2.4); Osmolality,Calculated 268.5 MOS/KG (273-304); Potassium 5.1 MMOL/L (3.5-5.1)
[2017-02-23 05:48] LABS: Eosinophils 2 % (0-10); Hypochromasia 1+; Lymphocytes 35 % (20-55); Microcytosis Slight; Platelet Estimate Adequate; Segmented Neutrophils 50 % (50-85); Total Cells Counted 100
[2017-02-23] MEDS: CHOLECALCIFEROL 1,000 UNIT TABLET PO SCH (08:43)
[2017-02-23] MEDS: ASPIRIN CHEW 81 MG TABLET PO SCH (08:43)
[2017-02-23] MEDS: SPIRONOLACTONE 50 MG TABLET PO SCH (08:43)
[2017-02-23] MEDS: DILTIAZEM CD 120 MG CAPSULE PO SCH (08:43)
[2017-02-23] MEDS: FUROSEMIDE 80 MG TABLET PO SCH ×2 (08:43→16:16)
[2017-02-23] MEDS: CARVEDILOL 6.25 MG TABLET PO SCH ×2 (08:43→22:12)
[2017-02-23] MEDS: POTASSIUM CHLORIDE 20 MEQ TABLET PO SCH ×3 (08:43→22:13)
[2017-02-23] MEDS: PANTOPRAZOLE 40 MG TABLET PO SCH (08:43)
[2017-02-23] MEDS: LISINOPRIL 2.5 MG TABLET PO SCH ×2 (08:43→22:11)
[2017-02-23] MEDS: POLYETHYLENE GLYCOL POWDER 17 GM PACK PO SCH (08:44)
[2017-02-23] MEDS: BUDESONIDE/FORMOTEROL 160-4.5 INHALER 6 GM INH SCH ×2 (08:47→22:10)
--- NOTE | 2017-02-23 10:02 | Discharge Summary ---
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 He was found to have decompensated congestive heart failure with ascites. Cardiology was consulted to assist with his management. Serial cardiac markers were done and was noted to be elevated. Per cardiology this was not associated with acute coronary syndrome. He was treated with IV Lasix, lisinopril, Coreg, Aldactone. Strict I 's and O's and daily weights were monitored. Serial labs were done and electrolytes replaced as needed. Once he was better compensated, IV Lasix was able to be transitioned to oral. Patient reported that his shortness of breath and swelling was much improved. Once cleared by cardiology patient was discharged to home for ongoing care. Given his overall prognosis is poor, he was offered home health versus hospice and he has refused both at this time. For his history of hepatocellular carcinoma with liver cirrhosis, patient was instructed to follow-up with [facility]/oncology outpatient as previously arranged. - Time spent with patient Time with patient DS: Greater than 30 minutes (35 minutes) Diagnosis - Discharge Diagnosis (1) Acute on chronic congestive heart failure Status: Acute (2) Acute renal failure Status: Acute (3) Elevated troponin Status: Acute (4) Weakness Status: Acute (5) Ascites due to alcoholic hepatitis Status: Chronic (6) Cardiomyopathy Status: Chronic (7) Hepatitis C Status: Chronic (8) Hepatocellular carcinoma Status: Chronic Discharge Plan - Discharge Data Disposition: Disch To Home/Self Care Condition at Discharge: Stable Discharge Diet: heart healthy, low salt diet Activity: other (Weigh self daily. If weight increases or decreases by more than 3 pounds, notify .) Contact your physician if you experience:: fever over 101, Difficulty voiding, Redness or swelling, Shortness of breath, Bleeding, pain uncontrolled by pain medications - Discharge Medications No Action Cholecalciferol [Vitamin D3] 1,000 unit PO DAILY Furosemide Tab [Lasix Tab] 40 mg PO DAILY Potassium Chloride 20 meq PO BID Meloxicam [Mobic] 7.5 mg PO DAILY PRN PRN Reason: Pain Budesonide/Formoterol 160-4.5 [Symbicort 160-4.5] 2 puff INH BID Aspirin EC Tab 81 mg PO DAILY Albuterol Inhaler [Proventil Inhaler] 2 puff INH Q6H PRN PRN Reason: Shortness Of Breath/Wheezing Polyethylene Glycol 3350 17 gm PO DAILY Metformin HCl 850 mg PO BID Ondansetron HCl 4 mg PO DAILY PRN PRN Reason: Nausea Metoprolol Succinate 25 mg PO BID Omeprazole 20 mg PO DAILY Sildenafil Citrate [Viagra] 100 mg PO DAILY PRN PRN Reason: Erectile Dysfunction - Follow Up or Referral Follow Up: , pcp [Other] - 2 Weeks Trace Sifuentes MD [Physician] - 2 Weeks (f/u CHF) - Forms/Instructions Additional Discharge Instructions: BMP, Mg, Phos in 1 week Exam - Constitutional Vitals: Period Temp Pulse Resp BP Sys/Hayden Pulse Ox Last 24 Hr 97.2 F-98.0 F 84-97 17-18 95-114/56-66 95-100 Exam: see progress note from 02/22 as physical exam is unchanged. Discharge Results Procedures and tests throughout hospitalization: Pending Orders 02/15/17 10:44 Cytology Request Routine 02/24/17 04:00 CBC [Comp Blood Count Auto Diff] IN AM Labs on day of discharge: Labs from last 24 hours 02/23/17 02/23/17 04:53 04:53 WBC 6.5 RBC 4.32 Hgb 11.7 L Hct 34.2 L MCV 79.2 L MCH 27 MCHC 34.2 RDW 18.6 H Plt Count 200 MPV 11.2 Neut % (Auto) 45.0 Lymph % (Auto) 36.8 [place] % (Auto) 17.1 H Eos % (Auto) 0.6 Baso % (Auto) 0.3 Neut # (Auto) 2.9 Lymph # (Auto) 2.4 [place] # (Auto) 1.1 H Eos # (Auto) 0.0 Baso # (Auto) 0.0 Total Counted 100 Immature Gran % 0.2 Nucleated RBC % 0.0 Immature Gran # 0.01 Segmented Neutrophils 50 Lymphocytes 35 Monocytes 13 Eosinophils 2 Nucleated RBCs # 0.00 Platelet Estimate Adequate Hypochromasia 1+ Microcytosis Slight Morphology Comment Sodium 132 L Potassium 5.1 Chloride 96 L Carbon Dioxide 26 Anion Gap 15.1 H BUN 26 H Creatinine 1.10 GFR Calculation 87 BUN/Creatinine Ratio 23.00 H Glucose 91 Calculated Osmolality 268.5 L Calcium 8.7 Magnesium 1.9 DS: Provider Date of admission: 02/14/17 17:33 Primary care physician: . No PCP Attending physician on admission: Enoc Sosa MD Consults: 02/14/17 17:33 Consult to Physician [CONS] Routine Comment: heart failure Consulting Provider: Cardiology - [facility] Consulting Provider Notified: Yes When should Consulting Provider be notified: Now Person Notified: [facility] OFFICE Date Notified: 02/15/17 Time Notified: 07:44 Consult Notification Comment: NOTIFIED OF CONSULT Consult to Physician [CONS] Routine Comment: liver cancer?, ascites Consulting Provider: Hernandez Jama 02/14/17 18:54 Consult to Dietitian [CONS] Routine Reason for Dietitian: Other Consult Comment: computer generated 02/15/17 07:43 Consult to Physician [CONS] Routine Comment: Consulting Provider: 02/15/17 09:39 Consult to Physician [CONS] Routine Comment: Consulting Provider: Hernandez Jama Consulting Provider Notified: Yes Person Notified: [place] Date Notified: 02/15/17 Time Notified: 09:10 Consult Notification Comment: CONSULT TO GI 02/16/17 15:34 Consult to Occupational Therapy [CONS] Routine Reason for Occupational Therapy: Evaluate and Treat Consult to Physical Therapy [CONS] Routine Reason for Physical Therapy: Evaluate and Treat Discharging clinician: Rosa Negron MD
--- NOTE | 2017-02-23 16:02 | Cardiology Progress Note ---
Assessment and Plan - Time spent with patient Time spent with patient: Less than 30 minutes (1) Sinus tachycardia Status: Acute Assessment and plan: SEE PLAN OF CARE LISTED BELOW. Current Visit: Yes (2) Elevated troponin Status: Acute Assessment and plan: SEE PLAN OF CARE LISTED BELOW. Current Visit: Yes (3) Hepatocellular carcinoma Status: Chronic Assessment and plan: SEE PLAN OF CARE LISTED BELOW. Current Visit: Yes (4) Acute renal failure Status: Acute Assessment and plan: SEE PLAN OF CARE LISTED BELOW. Current Visit: Yes (5) Hepatitis C Status: Chronic Assessment and plan: SEE PLAN OF CARE LISTED BELOW. 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 Current Visit: Yes (7) Shortness of breath Status: Acute Assessment and plan: SEE PLAN OF CARE LISTED BELOW. Current Visit: Yes (8) Cardiomyopathy Status: Chronic Assessment and plan: SEE PLAN OF CARE LISTED BELOW. Current Visit: Yes Qualifiers: Cardiomyopathy type: unspecified Qualified Code(s): I42.9 - Cardiomyopathy , unspecified (9) Acute on chronic congestive heart failure Status: Acute Assessment and plan: SEE PLAN OF CARE LISTED BELOW. Current Visit: Yes Cardiology - PN: Subj Interval history: ARDIOLOGIST: DR. FUNEZ (NEW) SUMMARY: Mr. Wong, 66BM, has no known prior cardiac history. History of hepatocellular carcinoma, hepatitis C, ascites due to alcoholic hepatitis, hypertension and diabetes. Admitted February 15, 2017 with complaints of progressive shortness of breath, weakness and dizziness. Newly discovered cardiomyopathy (EF 15%). Troponins flat at 0.139-0.221 with normal CPK and CK-MB. EKG reveals ST-T wave abnormalities, no STEMI. Mr. Wnog was for therapeutic paracentesis but there was not enough fluid to proceed with this. His abdominal distention has finally begun to improve. His abdomen is much softer today than it has been the past several days and seems to be slightly less distended today. He is on Aldactone 100mg po daily and has been diuresing well. His weight has gone from 174# to 165#. He reports his orthopnea has improved and appears to be resting comfortably. He does wear continuous O2 at home. Given his poor prognosis, would defer further cardiac workup for etiology of cardiomyopathy at this time. H&H is stable. Creatinine 1.1 today. Potassium 5.1. ASSESSMENT/PLAN: 1. SINUS TACHYCARDIA - improved. Tolerating low-dose beta jorge at this point. He still has occasional runs of paroxysmal atrial tachycardia, mildly symptomatic despite prominent RVR. 2. ELEVATED TROPONIN - troponin is flat. CPK and MB are normal. This is not an acute coronary syndrome. Not eligible for invasive workup given his multiple comorbidities. Continue with aspirin as able. 3. HEPATOCELLULAR CARCINOMA - continue current plan of care 4. RENAL INSUFFICIENCY - stage III. Uncertain if this is acute or chronic. 5. HEPATITIS C - continue current plan of care 6. ASCITIES DUE TO ALCOHOLIC HEPATITIS - status post paracentesis earlier during hospitalization. Continue current plan of care. 7. SHORTNESS OF BREATH - multifactorial. Initial chest x-ray reveals mild CHF and this has improved. Continue diuresis, afterload reduction. Strict I&O and daily weights. Lasix has been changed to PO. Blood pressure is borderline hypotensive. He looks slightly dry. We'll cut back on his Lasix to 40mg PO BID. He is being discharged home and will need to follow up with Dr. Funez in 2 weeks with CBC and BMP w/ Mg. 8. CARDIOMYOPATHY - etiology undetermined and he is not a candidate for invasive workup. EF 15%. Continue with current plan of care. 9. ACUTE HFrEF - EF 15%, NYHA CLASS III. Continue with afterload reduction, diuresis, strict I&O and daily weights. Dr. Sifuentes to follow with further plan and addendum. Exam (Progress Note) - Constitutional Vitals: Period Temp Pulse Resp BP Sys/Hayden Pulse Ox Last 24 Hr 97.4 F-98.0 F 85-97 17-20 87-114/47-66 95-100 Exam: General: Present: Appears Well, No Apparent Distress. Pleasant and cooperative. Appears comfortable. HEENT: Present: PERRL, Normocephaly, atraumatic. Mucus Membranes Moist. No jaundice noted. Conjunctiva moist and clear, sclerae anicteric Neck: Present: Supple Neck, Midline Trachea, No Masses, No Bruit, No tenderness Cardiac: Present: Regular Rate and Rhythm, No Murmur Lungs: Present: clear to auscultation bilaterally. No wheeze or rhonchi. Neuro: Present: Awake, alert, and oriented x3. Moves all extremities well without hemiparesis or paralysis. Grossly Intact. Absent: Resting Tremor, Essential Tremor Abdomen: Present: Active Bowel Sounds, No Masses, Non-Tender, Soft, less distended. No abdominal bruit or thrill noted. Skin: Present: Clear. Absent: Rash, No skin breakdown. Back: Normal inspection, no vertebral tenderness. Musculoskeletal: Present: No Fluid Collection, No Pain, Normal Range of Motion Extremities: Present: Normal Gait, No Clubbing, No Cyanosis, Upper Extr. Pulses 2+, Lower Extr. Pulses 2+, No edema. Capillary refill less than 3 seconds. Result/EKG - Labs CBC & BMP: 02/23/17 04:53 02/23/17 04:53 Lab Results: I have reviewed the past 24 hour labs Labs: Laboratory Results - last 24 hr 02/23/17 02/23/17 02/23/17 04:53 04:53 11:26 WBC 6.5 RBC 4.32 Hgb 11.7 L Hct 34.2 L MCV 79.2 L MCH 27 MCHC 34.2 RDW 18.6 H Plt Count 200 MPV 11.2 Neut % (Auto) 45.0 Lymph % (Auto) 36.8 [place] % (Auto) 17.1 H Eos % (Auto) 0.6 Baso % (Auto) 0.3 Neut # (Auto) 2.9 Lymph # (Auto) 2.4 [place] # (Auto) 1.1 H Eos # (Auto) 0.0 Baso # (Auto) 0.0 Total Counted 100 Immature Gran % 0.2 Nucleated RBC % 0.0 Immature Gran # 0.01 Segmented Neutrophils 50 Lymphocytes 35 Monocytes 13 Eosinophils 2 Nucleated RBCs # 0.00 Platelet Estimate Adequate Hypochromasia 1+ Microcytosis Slight Morphology Comment Sodium 132 L Potassium 5.1 Chloride 96 L Carbon Dioxide 26 Anion Gap 15.1 H BUN 26 H Creatinine 1.10 GFR Calculation 87 BUN/Creatinine Ratio 23.00 H Glucose 91 POC Glucose 90 Calculated Osmolality 268.5 L Calcium 8.7 Magnesium 1.9 - EKG EKG results: interpreted by me, sinus rhythm Specialty Discharge - Follow Up or Referrals Follow up with: , pcp [Other] - 2 Weeks Trace Sifuentes MD [Physician] - 2 Weeks (f/u CHF)
[2017-02-23] MEDS ORDERED: FUROSEMIDE 80 MG TABLET PO SCH (16:03)
[2017-02-23] MEDS: ENOXAPARIN 40 MG/0.4 ML SYRINGE SUBCUT SCH (18:23)
[2017-02-24 04:27] LABS: Basophils % 0.3 % (0.0-0.8); Eosinophils # 0.1 10*3/uL (0.0-0.87); Eosinophils % 0.7 % (0.00-10.9); Hematocrit 32.4 VOL% (42.0-52.0); Immature Granulocytes % 0.3 %; Immature Granulocytes Absolute 0.02 #; Lymphocytes # 2.6 10*3/uL (1.4-4.0); Lymphocytes % 37.1 % (21.2-54.2); Mean Corpuscular Hemoglobin 26 PG (27-34); Mean Corpuscular Volume 77.9 FL (87-102); Mean Platelet Volume 11.3 FL (9.6-12.0); Monocytes # 1.1 10*3/uL (0.11-0.8); Monocytes % 14.8 % (1.7-12.7); Neutrophils # 3.3 10*3/uL (1.4-7.4); Neutrophils % 46.8 % (38.7-73.9); Platelet Count 240 T/CUMM (130-400); Red Blood Count 4.16 MC/CUMM (3.8-5.5); Red Cell Distribution Width 18.6 % (9.3-17.3); White Blood Count 7.1 T/CUMM (4-12)
[2017-02-24 04:54] LABS: Calcium 8.8 MG/DL (8.5-10.1); Osmolality,Calculated 262.9 MOS/KG (273-304); Potassium 4.6 MMOL/L (3.5-5.1)
[2017-02-24 08:08] VITALS: BP 98/66
[2017-02-24] MEDS: ASPIRIN CHEW 81 MG TABLET PO SCH (08:34)
[2017-02-24] MEDS: POLYETHYLENE GLYCOL POWDER 17 GM PACK PO SCH (08:34)
[2017-02-24] MEDS: DILTIAZEM CD 120 MG CAPSULE PO SCH (08:34)
[2017-02-24] MEDS: LISINOPRIL 2.5 MG TABLET PO SCH (08:35)
[2017-02-24] MEDS: POTASSIUM CHLORIDE 20 MEQ TABLET PO SCH (08:35)
[2017-02-24] MEDS: BUDESONIDE/FORMOTEROL 160-4.5 INHALER 6 GM INH SCH (08:35)
[2017-02-24] MEDS: SPIRONOLACTONE 50 MG TABLET PO SCH (08:35)
[2017-02-24] MEDS: CHOLECALCIFEROL 1,000 UNIT TABLET PO SCH (08:35)
[2017-02-24] MEDS: PANTOPRAZOLE 40 MG TABLET PO SCH (08:35)
[2017-02-24] MEDS: CARVEDILOL 6.25 MG TABLET PO SCH (08:35)
== END 2017-02-24 12:10 | disposition home or self-care (01) | DRG 432 ==
LOC: EDUNIT# → N.ED 15:22 → SUATTDRO 17:33 → N.EDINP 17:33 → N.ICU 18:39 → N.TELES 02-16 15:32
PROVIDERS: ADMIT Family Medicine; ATTEND Pediatrics

== ENCOUNTER 2017-03-27 12:35 | Inpatient (IN) ==
--- NOTE | 2017-03-27 12:56 | EKG Report ---
Stationary ECG Study [facility] ER Test Date: 03/27/2017 12:58:10 PM Pat Name: MANDY HANSON Department: Room: Gender: M Ultrasound Specialist: Ayse Dixon : 1950 Requested by: Jason Cruz Order Number: [id number] Reading MD: CAMILA QUILES Intervals [place] Rate: 96 P: 72 GA: 199 QRS: 71 QRSD: 90 T: 110 QT: 338 QTc: 392 Interpretive Statements SINUS RHYTHM SEPTAL INFARCT, PROBABLY OLD Electronically Signed On 03-27-17 17:40:56 CDT by CAMILA QUILES [email or web address]
--- NOTE | 2017-03-27 13:32 | XRay Report ---
XR chest 2V Indication: SOB Comparison: Chest x-ray dated February 18, 2017 Technique: Frontal and lateral views of the chest. Findings: Mild cardiomegaly. Mild opacification projects over the left midlung which is likely due to overlying soft tissues as no significant abnormality visualized on lateral view. Visualized osseous and surrounding soft tissue structures appear grossly unchanged. Old left-sided rib deformities. IMPRESSION: Mild cardiomegaly without melinda pulmonary edema. PROCEDURE INTERPRETED AT [facility] DEPARTMENT OF RADIOLOGY Final Report Signed by: Dr Jack Sharma
[2017-03-27] MEDS ORDERED: SODIUM CHLORIDE 0.9% 1,000 ML IV STA (14:14)
[2017-03-27 14:19] LABS: Basophils % 0.3 % (0.0-0.8); Eosinophils # 0.1 10*3/uL (0.0-0.87); Eosinophils % 0.8 % (0.00-10.9); Hematocrit 41.1 VOL% (42.0-52.0); Hemoglobin 14.1 GM/DL (14.0-18.0); Immature Granulocytes % 0.3 %; Immature Granulocytes Absolute 0.02 #; Lymphocytes # 2.4 10*3/uL (1.4-4.0); Lymphocytes % 30.6 % (21.2-54.2); Mean Corpuscular HGB Conc 34.3 GM/DL (32-36); Mean Corpuscular Hemoglobin 28 PG (27-34); Mean Corpuscular Volume 80.1 FL (87-102); Mean Platelet Volume 10.7 FL (9.6-12.0); Monocytes # 1.1 10*3/uL (0.11-0.8); Monocytes % 13.7 % (1.7-12.7); Neutrophils # 4.3 10*3/uL (1.4-7.4); Neutrophils % 54.3 % (38.7-73.9); Platelet Count 191 T/CUMM (130-400); Red Blood Count 5.13 MC/CUMM (3.8-5.5); White Blood Count 7.9 T/CUMM (4-12)
[2017-03-27] MEDS ORDERED: SODIUM CHLORIDE 0.9% 500 ML IV STA (14:19)
[2017-03-27 14:29] LABS: INR 1.1; PT Patient Result 11.6 SECS
[2017-03-27 14:42] LABS: Albumin 3.4 G/DL (3.4-5.0); Bilirubin,Total 0.7 MG/DL (0.2-1.0); Calcium 9.5 MG/DL (8.5-10.1); Osmolality,Calculated 286.1 MOS/KG (273-304); Total Protein 9.5 G/DL (6.4-8.3)
--- NOTE | 2017-03-27 15:14 | Emergency Department Note ---
Blanca Gilman Rolonda, am scribing for, and in the presence of, Phil Mckay MD 14:26. Nely Gilman Phillip K, MD, personally performed the services described in this documentation, ascribed by Ibis Rios in my presence, and it is both accurate and complete 514 . Arrival - Arrival Chief Complaint: Shortness of Breath Stated Complaint: SOB and dizzy ED Nursing Triage Note: Pt c/o SOB, cough, and dizziness since back in January. Pt on home O2 in triage. Mode of Arrival: Ambulatory Limitations: No Limitations Source: Patient, Old Records Reviewed, RN Notes Reviewed - History of Present Illness HPI Narrative: Pt is a 66 y/o male who ambulated to the ED with c/o of SOB with an onset of x1 day. He was last seen on 02/14/2017 for SOB and heart failure. Pt has a PMHx of Cardiac Dysrhythmia, COPD, liver Cirrhosis secondary to Hep C and alcoholism, and Carcinoma. He states that he received chemotherapy September 12-October 13 and that he is on an oxygen tank at home. Pt checked blood pressure at home with results of 74/50; at time of triage BP was 61/41. He confirms of sputum cough and dizziness but denies fever and hemotochezia. Pt has a Shx of smoking and EtOH usage everyday. He is f/u by physicians at the NH. No other complaint/ pain in ED. Onset (ago): month(s) Consistency: constant Severity: moderate Allergies/Adverse Reactions: Allergies Allergy/AdvReac Type Severity Reaction Status Date / Time No Known Allergies Allergy Verified 02/14/17 15:31 Home Medications: Home Medications Medication Instructions Recorded Confirmed Type Albuterol Inhaler [Proventil 2 puff INH QID PRN 02/14/17 03/27/17 History Inhaler] Aspirin EC Tab 81 mg PO DAILY 02/14/17 03/27/17 History Budesonide/Formoterol 160-4.5 2 puff INH BID 02/14/17 03/27/17 History [Symbicort 160-4.5] Cholecalciferol [Vitamin D3] 1,000 unit PO DAILY 02/14/17 03/27/17 History Omeprazole 20 mg PO DAILY 02/14/17 03/27/17 History Ondansetron HCl 4 mg PO DAILY PRN 02/14/17 03/27/17 History Polyethylene Glycol 3350 17 gm PO DAILY 02/14/17 03/27/17 History Potassium Chloride 20 meq PO BID 02/14/17 03/27/17 History Sildenafil Citrate [Viagra] 100 mg PO DAILY PRN 02/14/17 03/27/17 History Diltiazem Cd Cap [Cardizem CD] 120 mg PO DAILY #30 capsule 02/23/17 03/27/17 Rx Furosemide Tab [Lasix Tab] 80 mg PO BID DIURETIC #60 tablet 02/23/17 03/27/17 Rx Carvedilol [Coreg] 6.25 mg PO BID 03/27/17 03/27/17 History Lactulose Liquid [Chronulac] 30 ml PO BID 03/27/17 03/27/17 History Lisinopril [Prinivil] 2.5 mg PO DAILY 03/27/17 03/27/17 History Meloxicam 7.5 mg PO DAILY PRN 03/27/17 03/27/17 History Review of System - Review of System 12 point system: reviewed and no additional remarkable complaints except as stated - Review of System Constitutional: Absent: chills, fever Respiratory: Present: cough (sputum) Cardiovascular: Absent: chest pain Gastrointestinal: Absent: abdominal pain, nausea, vomiting, hematochezia Musculoskeletal: Absent: back pain, neck pain Neurological: Present: vertigo Medical,Surgical,& Family Hx - Medical History Cardio: History of: Cardiac Dysrhythmia (Dr Robertson) Psychological: History of: Depression HEENT: History of: Eye Problem (cataract surgery right eye) Respiratory: History of: COPD Gastrointestinal: History of: GERD Musculoskeletal: History of: Back/Neck Problems, Musculoskeletal Problems (pain pills for back pain PRN) - Social History Smoking Status: Former smoker Exam Vital Signs: Vital Signs Temperature 97.7 F 03/27/17 13:54 Pulse Rate 99 H 03/27/17 13:54 Respiratory Rate 18 03/27/17 14:08 Blood Pressure 61/41 03/27/17 13:54 O2 Sat by Pulse Oximetry 99 03/27/17 12:49 - General General appearance: alert, in no apparent distress - Head Head exam: Present: atraumatic, normocephalic - Eye Eye exam: Present: normal appearance, PERRL, EOMI - ENT ENT exam: Present: mucous membranes moist. Absent: mucous membranes dry - Neck Neck exam: Present: full ROM. Absent: tenderness - Chest Chest inspection: Present: symmetric chest wall rise. Absent: tenderness - Respiratory Respiratory exam: Present: normal lung sounds bilaterally. Absent: rales - Cardiovascular Cardiovascular exam: Present: normal rhythm, tachycardia. Absent: gallop - Abdominal Exam Abdominal exam: Present: soft, normal bowel sounds, other (Cirrhosis). Absent: tenderness - Extremities Exam Extremities exam: Present: full ROM. Absent: tenderness - Back Exam Back exam: Present: full ROM. Absent: tenderness - Neurological Exam Neurological exam: Present: alert, oriented X3, CN II-XII intact - Psychiatric Psychiatric exam: Present: normal affect, normal mood - Skin Skin exam: Present: warm, dry, intact, normal color. Absent: rash Course Course Narrative: Patient creatinine is increased since February 24. Results - Labs CBC & BMP: 03/27/17 14:01 03/27/17 14:01 Lab Results: I have reviewed the patients labs Labs: Laboratory Tests 03/27/17 14:01 B-Natriuretic Peptide 185 H - Diagnostic Findings Procedure: Chest x-ray: report reviewed by me (Mild cardiomegaly without melinda pulmonary edema.) Disposition Clinical Impression: Hypotension, Cardiomyopathy, Hepatocellular carcinoma, Chronic renal failure Case discussed with: patient Disposition: Still a Patient Condition: Guarded Additional Instructions: Admit to the hospitalist
[2017-03-27 15:31] LABS: Apearance,Urine CLEAR (Clear); Bilirubin,Urine Negative (Negative); Blood, Urine Negative (Negative); Glucose,Urine (UA) Negative (Negative); Hyaline Casts,Urine 15 /LPF (0-3); Ketones,Urine Negative (Negative); Nitrite,Urine Negative (Negative); Protein,Urine Negative; RBC,Urine <1 /HPF (0-4); Urine Color Yellow (Yellow); Urine Specific Gravity 1.006 (1.001-1.035); Urine Urobilinogen < 2.0 EU/DL (0.2-1.0); WBC,Urine <1 /HPF (0-6)
--- NOTE | 2017-03-27 16:27 | Hospitalist History & Physical ---
<Marcela Chenda - Last Filed: 03/27/17 16:38> Assessment and Plan (1) Cardiomyopathy Status: Acute Assessment and plan: Current Visit: Yes (2) Chronic renal failure Status: Acute Current Visit: Yes (3) Hypotension Status: Acute Current Visit: Yes History of Present Illness Chief complaint: shortness of breath History of present illness: This is a chronically ill 66-year-old male that presented to the ED at [facility] this afternoon for the evaluation of shortness of breath. The patient has a medical history significant for: Hepatitis C, cardiomyopathy, alcohol abuse, liver cirrhosis, hepatocellular carcinoma, chronic obstructive pulmonary disease, depression, and GERD. The patient was recently hospitalized at [facility] from February 14, 2017 through February 24, 2017; in which the patient was noted to have severe cardiomyopathy with an ejection fraction of an estimated 15%. 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 Today, the patient presents with a chief complaint of shortness of breath 1 day. The patient reports that his shortness of breath has never really improved since his previous admission. The patient denies current nicotine use and reports his last consumption in August 2016. The patient hesitantly admitted to current alcohol consumption. He reports that he "drinks a little and not as much as he used to". In addition, the patient reported a productive cough and dizziness however denied hematochezia. The patient reported that he started to feel weak in addition to being short of breath this morning which prompted him to check his blood pressure. He became alarmed when he noted his blood pressure is 70/30. His was present and urged him to present to the ED for further evaluation. At the time of ED presentation, the patient was noted grossly hypertensive with a blood pressure noted at 61/41. Fluid boluses were initiated. The patient's blood pressure gradually improved. Labs were obtained; hematology panel reported white blood cell count is 7.9, hemoglobin 14.1, hematocrit 41.1, MCV 80.1, RDW 20.0, platelet count 191, monocyte % 13.7, monocyte #1.1. Coagulation panels reported an INR 1.1 and PT at 11.6. Chemistry panel reported sodium at 135, potassium 5.0, chloride 101, carbon dioxide 25, anion gap 14.0, BUN 59, creatinine 2.90, calcium 9.5, magnesium 2.0, AST 72, ALT 65, BNP 185, total protein 95, albumin 3.4. Urinalysis was significant for urobilinogen greater than 2.0. Chest x-ray reported mild cardiomegaly without melinda pulmonary edema. After brief discussion with both Dr. Mckay and Dr. Benjamin, the patient will be admitted to the hospitalist services. Due to the persistent hypotension, the patient will be placed in the critical care setting for continuous monitoring. We will consult cardiology to evaluate and assist during the clinical encounter. Home Medications Medication Instructions Recorded Confirmed Type Albuterol Inhaler [Proventil 2 puff INH QID PRN 02/14/17 03/27/17 History Inhaler] Aspirin EC Tab 81 mg PO DAILY 02/14/17 03/27/17 History Budesonide/Formoterol 160-4.5 2 puff INH BID 02/14/17 03/27/17 History [Symbicort 160-4.5] Cholecalciferol [Vitamin D3] 1,000 unit PO DAILY 02/14/17 03/27/17 History Omeprazole 20 mg PO DAILY 02/14/17 03/27/17 History Ondansetron HCl 4 mg PO DAILY PRN 02/14/17 03/27/17 History Polyethylene Glycol 3350 17 gm PO DAILY 02/14/17 03/27/17 History Potassium Chloride 20 meq PO BID 02/14/17 03/27/17 History Sildenafil Citrate [Viagra] 100 mg PO DAILY PRN 02/14/17 03/27/17 History Diltiazem Cd Cap [Cardizem CD] 120 mg PO DAILY #30 capsule 02/23/17 03/27/17 Rx Furosemide Tab [Lasix Tab] 80 mg PO BID DIURETIC #60 tablet 02/23/17 03/27/17 Rx Carvedilol [Coreg] 6.25 mg PO BID 03/27/17 03/27/17 History Lactulose Liquid [Chronulac] 30 ml PO BID 03/27/17 03/27/17 History Lisinopril [Prinivil] 2.5 mg PO DAILY 03/27/17 03/27/17 History Meloxicam 7.5 mg PO DAILY PRN 03/27/17 03/27/17 History Allergies Allergy/AdvReac Type Severity Reaction Status Date / Time No Known Allergies Allergy Verified 02/14/17 15:31 Medical,Surgical,& Family Hx - Medical History Cardio: History of: Cardiac Dysrhythmia (Dr Robertson) Psychological: History of: Depression HEENT: History of: Eye Problem (cataract surgery right eye) Respiratory: History of: COPD Gastrointestinal: History of: GERD Musculoskeletal: History of: Back/Neck Problems, Musculoskeletal Problems (pain pills for back pain PRN) - Social History Smoking Status: Former smoker 12 point system: reviewed and no additional remarkable complaints except as stated Exam - Constitutional Vitals: Period Temp Pulse Resp BP Sys/Hayden Pulse Ox Last 24 Hr 97.7 F-97.7 F 99-99 18-20 61-61/41-41 99 General appearance: normal weight, mild distress - Head Head exam: Present: normal inspection, normocephalic, atraumatic - Eye Eye exam: Present: EOMI, conjunctival injection. Absent: nystagmus Pupils: Present: VIKI, normal accommodation - ENT ENT exam: Present: normal exam, normal external ear exam, normal oropharynx - Neck Neck exam: Present: normal inspection, thyromegaly. Absent: lymphadenopathy, meningismus - Respiratory Respiratory exam: Present: clear to auscultation bilaterally. Absent: rales, rhonchi, stridor, wheezes - Cardiovascular Cardiovascular exam: Present: tachycardia - GI/Abdominal GI/Abdominal exam: Present: normal bowel sounds, soft. Absent: tenderness - Extremities Exam Extremities exam: Present: normal inspection, normal capillary refill, full ROM. Absent: edema - Back Exam Back exam: Present: normal inspection - Neurological Exam Neurological exam: Present: alert, oriented X3, CN II-XII intact - Psychiatric Psychiatric exam: Present: normal affect, normal mood - Skin Skin exam: Present: normal color, warm, dry Results - Labs CBC & BMP: 03/27/17 14:01 03/27/17 14:01 Lab Results: I have reviewed the past 24 hour labs <Hernandez Benjamin - Last Filed: 03/27/17 17:17> Assessment and Plan - Time spent with patient Time spent with patient: Greater than 30 minutes (1) Hypotension Status: Acute Assessment and plan: Patient presents with symptomatic hypotension. He appears to be volume depleted with acute kidney injury. He is received IV fluids in the emergency room with improvement in his systolic blood pressure to 98 upon my arrival. Will continue cautious hydration in the presence of his cardiomyopathy and follow-up laboratory studies in the a.m. Current Visit: Yes (2) Acute renal failure Status: Acute Assessment and plan: Patient has acute kidney injury as his creatinine on previous admission was approximately 1.1. Suspect this is secondary to volume depletion, hypotension as well as the possibility of additional ROCÍO inhibition. Will hold his ROCÍO inhibitor and cautiously hydrate the presence of his underlying cardiomyopathy. We will follow-up his chemistry panel in the a.m. Current Visit: No (3) Cardiomyopathy Status: Acute Assessment and plan: Patient has a history of cardiomyopathy with ejection fraction estimated at 15% . Because of his hypotension will withhold his antihypertensive therapy at this time and cautiously hydrate as he appears to be volume depleted and an acute renal failure. At this time he has no history of chest pain or signs or symptoms of acute coronary syndrome. Current Visit: Yes (4) Hypertension Status: Chronic Assessment and plan: Patient has history of chronic essential hypertension. He is now hypotensive and will withhold his antihypertensive therapy at this time. Will reinitiate as tolerated. Current Visit: Yes Qualifiers: Hypertension type: essential hypertension Qualified Code(s): I10 - Essential (primary) hypertension (5) Cirrhosis Status: Chronic Current Visit: Yes History of Present Illness History of present illness: Patient has been seen and examined by me personally. Mr. Wong is a 66 year old -Spanish male with multiple medical issues as noted above he states that he noted some dizziness yesterday with a low blood pressure. This morning he had continued symptoms and check his blood pressure with systolics in the 60s and 70s and he came to the emergency room for further evaluation. He has chronic shortness of breath and wears home O2. He denies any chest pain, fever , chills, nausea, vomiting, diarrhea, constipation, melena, hematochezia, hematemesis, dysuria, hematuria, urinary frequency urgency or incontinence. He has had no syncope. He has had a cough which he states is been nonproductive. Medical,Surgical,& Family Hx - Medical History Cardio: History of: Cardiac Dysrhythmia, CHF (Ejection fraction estimated at 15% ) Psychological: History of: Depression HEENT: History of: Eye Problem Endocrine: History of: Diabetes Mellitus (NIDDM) (Currently on no medications) Gastrointestinal: History of: GERD Musculoskeletal: History of: Back/Neck Problems, Musculoskeletal Problems - Surgical History Surgical History: noncontributory - Family History Additional Family History: No premature coronary disease - Social History Smoking Status: Former smoker Frequency of Alcohol Use: None Type of Drug Use: None Marital Status: 12 point system: reviewed and no additional remarkable complaints except as stated Exam - Constitutional Vitals: Period Temp Pulse Resp BP Sys/Hayden Pulse Ox Last 24 Hr 97.7 F-97.7 F 99-99 18-20 61-61/41-41 99 General appearance: mild distress - Head Head exam: Present: normocephalic, atraumatic - Eye Eye exam: Present: EOMI, conjunctival injection Pupils: Present: VIKI, normal accommodation, constricted - ENT ENT exam: Present: normal exam, normal external ear exam - Neck Neck exam: Present: normal inspection - Respiratory Respiratory exam: Present: clear to auscultation bilaterally. Absent: rales, rhonchi, stridor, wheezes - Cardiovascular Cardiovascular exam: Present: regular rate and rhythm, tachycardia - GI/Abdominal GI/Abdominal exam: Present: normal bowel sounds, soft. Absent: tenderness - Extremities Exam Extremities exam: Present: normal inspection, normal capillary refill, full ROM. Absent: edema - Back Exam Back exam: Present: normal inspection - Neurological Exam Neurological exam: Present: alert, oriented X3, CN II-XII intact. Absent: motor sensory deficit - Psychiatric Psychiatric exam: Present: normal affect, normal mood. Absent: agitated, anxious - Skin Skin exam: Present: normal color, warm, dry. Absent: erythema, rash Results - Labs CBC & BMP: 03/27/17 14:01 03/27/17 14:01 Lab Results: I have reviewed the past 24 hour labs - Diagnostic Findings Procedure: Chest x-ray: report reviewed by me
[2017-03-27] MEDS ORDERED: SODIUM CHLORIDE 0.9% 500 ML IV ONE (17:34)
[2017-03-27] MEDS ORDERED: ONDANSETRON 4 MG TABLET PO PRN (17:34)
[2017-03-27] MEDS ORDERED: ALBUTEROL 2.5 MG/3 ML NEB RESP TX PRN (17:34)
[2017-03-27] MEDS: SODIUM CHLORIDE 0.9% 1,000 ML IV SCH ×2 (18:22→23:30)
[2017-03-27] MEDS ORDERED: SODIUM CHLORIDE 0.9% 250 ML IV ONE (19:50)
[2017-03-27] MEDS: LACTULOSE 20 GM/30 ML UDCUP PO SCH (20:29)
[2017-03-27] MEDS: ENOXAPARIN 30 MG/0.3 ML SYRINGE SUBCUT SCH (20:29)
[2017-03-27] MEDS: BUDESONIDE/FORMOTEROL 160-4.5 INHALER 6 GM INH SCH (20:29)
[2017-03-28 04:24] LABS: Basophils % 0.3 % (0.0-0.8); Eosinophils # 0.1 10*3/uL (0.0-0.87); Eosinophils % 1.3 % (0.00-10.9); Hematocrit 37.5 VOL% (42.0-52.0); Hemoglobin 12.6 GM/DL (14.0-18.0); Immature Granulocytes % 0.4 %; Immature Granulocytes Absolute 0.03 #; Lymphocytes % 38.1 % (21.2-54.2); Mean Corpuscular HGB Conc 33.6 GM/DL (32-36); Mean Corpuscular Hemoglobin 27 PG (27-34); Mean Corpuscular Volume 79.6 FL (87-102); Mean Platelet Volume 11.7 FL (9.6-12.0); Monocytes # 1.1 10*3/uL (0.11-0.8); Monocytes % 13.6 % (1.7-12.7); Neutrophils # 3.7 10*3/uL (1.4-7.4); Neutrophils % 46.3 % (38.7-73.9); Platelet Count 172 T/CUMM (130-400); Red Blood Count 4.71 MC/CUMM (3.8-5.5); Red Cell Distribution Width 19.2 % (9.3-17.3); White Blood Count 7.9 T/CUMM (4-12)
[2017-03-28 04:57] LABS: Osmolality,Calculated 282.8 MOS/KG (273-304); Potassium 4.2 MMOL/L (3.5-5.1)
[2017-03-28] MEDS: BUDESONIDE/FORMOTEROL 160-4.5 INHALER 6 GM INH SCH ×2 (08:04→23:34)
[2017-03-28] MEDS: PANTOPRAZOLE 40 MG TABLET PO SCH (08:04)
[2017-03-28] MEDS: LACTULOSE 20 GM/30 ML UDCUP PO SCH ×2 (08:04→21:26)
[2017-03-28] MEDS: ASPIRIN EC 81 MG TABLET PO SCH (08:04)
[2017-03-28] MEDS: CHOLECALCIFEROL 1,000 UNIT TABLET PO SCH (08:04)
[2017-03-28] MEDS ORDERED: SODIUM CHLORIDE 0.9% 250 ML IV ONE (08:35)
[2017-03-28] MEDS: SODIUM CHLORIDE 0.9% 1,000 ML IV SCH ×3 (09:02→18:42)
--- NOTE | 2017-03-28 11:11 | Cardiology Consult Note ---
<Steffi Walsh E - Last Filed: 03/28/17 11:12> Assessment and Plan - Time spent with patient Time spent with patient: Greater than 30 minutes (1) Cardiomyopathy Status: Chronic Assessment and plan: SEE PLAN OF CARE LISTED BELOW Current Visit: Yes (2) Hepatocellular carcinoma Status: Chronic Assessment and plan: SEE PLAN OF CARE LISTED BELOW Current Visit: Yes (3) Hypotension Status: Acute Assessment and plan: SEE PLAN OF CARE LISTED BELOW Current Visit: Yes (4) Cirrhosis Status: Chronic Assessment and plan: SEE PLAN OF CARE LISTED BELOW Current Visit: Yes (5) Shortness of breath Status: Acute Assessment and plan: SEE PLAN OF CARE LISTED BELOW Current Visit: No (6) Sinus tachycardia Status: Chronic Assessment and plan: SEE PLAN OF CARE LISTED BELOW Current Visit: No (7) Weakness Status: Acute Assessment and plan: SEE PLAN OF CARE LISTED BELOW Current Visit: No (8) Hepatitis C Status: Chronic Current Visit: No History of Present Illness - Data of Consult Patient: known to practice within the last 3 years Consult date: 03/28/17 Requesting Physician: Hernandez Benjamin - Consult Narrative Reason for consult: Persistent hypotension History of present illness: PBX TEACHER: DR. FUNEZ PCP: [facility] Patient is being seen in the CCU. Mr. Wong, 66BM, has been followed by Dr. Funez in the past while hospitalized though not followed up in clinic. Risk factors include: hypertension, diabetes. History of cardiomyopathy (EF 15%), hepatocellular carcinoma, hepatitis C, ascites due to alcoholic hepatitis, COPD and depression. Patient presented to the ER of [facility] March 27, 2017 with complaints of progressive shortness of breath, weakness and dizziness. He was recently admitted February 14, 2017 through February 24, 2017 for the similar symptoms. During that prior admission, he was diagnosed with severe cardiomyopathy, EF 15%), started on low-dose beta-jorge and low-dose ROCÍO inhibitor. He was instructed to follow-up with his tail edger in the outpatient setting. He has not done so at this time. Upon arrival to the ER, he was noted to be hypotensive and tachycardic with a blood pressure of 61/41, heart rate 123. He reports chronic shortness of breath but found it to be worse the past 1-2 days prior to admission. Denies chest pain, heaviness or tightness. Creatinine was noted to be 2.9 on admission, after hydration has improved 1.7 this morning. Chest x- ray reveals mild cardiomegaly without melinda pulmonary edema. Echocardiogram February 14, 2017 revealed following: EF 15%, PAP 31 mmHg, no significant valvular abnormality. This morning, patient is feeling better, less fatigued. His breathing is better. Cardiology has been consulted for persistent hypotension. I will order an echocardiogram, focused study, to rule out pericardial effusion/ tamponade. Blood cultures 2. Obviously, continue to hold antihypertensives and continue with hydration closely monitoring his breathing. Patient's cardiomyopathy is of unknown etiology. He is not a candidate for invasive workup given his multiple comorbidities including hepatocellular cancer. Suspect may be related to alcohol abuse as he continues to admittedly use alcohol daily. Will further discuss with Dr. Dyson and await additional recommendations. ASSESSMENT/PLAN: 1. HYPOTENSION - continue IV hydration and hold anti-hypertensives. Echo, focused study, to R/O tamponade/pericardia effusion. BC X 2. Most likely related to cardiac pump failure. Unfortunately, due to his hypotension, we cannot utilize beta blockers or ROCÍO inhibitors in an effort to improve his cardiomyopathy. 2. SINUS TACHYCARDIA -during prior admission, patient also had sinus tach at cardia. He had occasional runs of paroxysmal atrial tachycardia and beta- blockade was incorporated. After hydration, may consider IV digoxin closely monitoring given his renal insufficiency. 3. HEPATOCELLULAR CARCINOMA - continue current plan of care. Poor prognosis. [facility] [place] [facility]. 4. RENAL INSUFFICIENCY - stage III. Patient has some underlying degree of CKD (stage undetermined as we have no records from [place]) however, on admission, creatinine had significantly worsened from discharge. Will hold ROCÍO inhibitor for fear of worsening his renal insufficiency as well as his hypotension. 5. HEPATITIS C - continue current plan of care 6. ASCITIES DUE TO ALCOHOLIC HEPATITIS - continue current plan of care. Had paracentesis last hospitalization. 7. SHORTNESS OF BREATH - multifactorial. Improved. CXR does not reveal CHF. Strict I&O and daily weights. 8. CARDIOMYOPATHY - etiology undetermined and he is not a candidate for invasive workup. EF 15%. Continue with current plan of care. CC: Lora Phelps MD - Home Medications and Allergies Home Medications: Home Medications Medication Instructions Recorded Confirmed Type Albuterol Inhaler [Proventil 2 puff INH QID PRN 02/14/17 03/27/17 History Inhaler] Aspirin EC Tab 81 mg PO DAILY 02/14/17 03/27/17 History Budesonide/Formoterol 160-4.5 2 puff INH BID 02/14/17 03/27/17 History [Symbicort 160-4.5] Cholecalciferol [Vitamin D3] 1,000 unit PO DAILY 02/14/17 03/27/17 History Omeprazole 20 mg PO DAILY 02/14/17 03/27/17 History Ondansetron HCl 4 mg PO DAILY PRN 02/14/17 03/27/17 History Polyethylene Glycol 3350 17 gm PO DAILY 02/14/17 03/27/17 History Potassium Chloride 20 meq PO BID 02/14/17 03/27/17 History Sildenafil Citrate [Viagra] 100 mg PO DAILY PRN 02/14/17 03/27/17 History Diltiazem Cd Cap [Cardizem CD] 120 mg PO DAILY #30 capsule 02/23/17 03/27/17 Rx Furosemide Tab [Lasix Tab] 80 mg PO BID DIURETIC #60 tablet 02/23/17 03/27/17 Rx Carvedilol [Coreg] 6.25 mg PO BID 03/27/17 03/27/17 History Lactulose Liquid [Chronulac] 30 ml PO BID 03/27/17 03/27/17 History Lisinopril [Prinivil] 2.5 mg PO DAILY 03/27/17 03/27/17 History Meloxicam 7.5 mg PO DAILY PRN 03/27/17 03/27/17 History Allergies/Adverse Reactions: Allergies Allergy/AdvReac Type Severity Reaction Status Date / Time No Known Allergies Allergy Verified 02/14/17 15:31 Review of systems: REVIEW OF SYSTEMS: - Constitutional Constitutional: Present: Fatigue. Dizziness, lightheadedness. Absent: syncope , anorexia, night sweats - EENT Eyes: Absent: blurry vision, loss of vision, diplopia Ears: Absent: decreased hearing, ear pain, ear discharge - Cardiovascular Cardiovascular: Denies chest pain with exertion. RANDALL, shortness of breath at rest. Denies edema, palpitations. - Respiratory Respiratory: Present: RANDALL, cough. Absent: wheezing, hemoptysis, change in phlegm color - Gastrointestinal Gastrointestinal: Denies: constipation. Acknowledges abdominal tightness and fullness. Absent: hematemesis, hematochezia, melena, change in bowel habits, nausea - Genitourinary Genitourinary: Absent: difficulty urinating, dysuria, urinary hesitancy, flank pain - Musculoskeletal Musculoskeletal: Present: back pain Absent: joint swelling, muscle cramps, muscle weakness - Neurological Neurological: Present: normal gait without frequent falls. Absent: dizziness, hemiparesis - Psychiatric Psychiatric: Depression. Absent: anxiety, difficulty concentrating - Endocrine Endocrine: Present: fatigue. Absent: cold intolerance, heat intolerance, polyuria, polyphagia, polydipsia - Hematologic/Lymphatic Hematologic/Lymphatic: Present: easy bruising. Absent: easy bleeding -Integumentary Integumentary: Absent: lesions, rashes, skin breakdown Medical,Surgical,& Family Hx - Medical History Cardio: History of: Cardiac Dysrhythmia, CHF (Ejection fraction estimated at 15% ), Cardiovascular Problems (patient states "weak heart" and hypotension) No history of: CAD Psychological: History of: Depression HEENT: History of: Eye Problem Endocrine: History of: Diabetes Mellitus (NIDDM) (Currently on no medications) Respiratory: History of: COPD, Pneumonia Gastrointestinal: History of: GERD, Hepatitis (Hep C), Polyps Musculoskeletal: History of: Back/Neck Problems, Musculoskeletal Problems Reproductive: Reports: Sexually Transmitted Disease ("the clap" in 1966) - Surgical History Cardiac Surgeries: Patient Denies: Cardiac Catheterization HEENT Surgeries: Surgical HX of: Eye Surgery (Lasik surgery and cataract removal ) Orthopedic Surgeries: Surgical HX of;: Orthopedic Surgery (Fixed broken pelvis) - Family History Family History: Reports;: Family Cancer, Family Heart Disease, Family Stroke ( Mother and Aunt have had stroke.) Denies;: Family Anesthesia Reaction, Family Diabetes, Family Hematology, Family Hypertension, Family Psychiatric Problems, Additional Family History - Social History Smoking Status: Former smoker Have you smoked in the last 12 months: No Frequency of Alcohol Use: None Type of Drug Use: None Physical Examination Vital Signs Temp Pulse Resp BP Pulse Ox 97.7 F 99 H 20 61/41 99 03/27/17 12:49 03/27/17 12:49 03/27/17 12:49 03/27/17 12:49 03/27/17 12:49 General: [Appears well with no apparent distress.] [Pleasant and cooperative. ] [Appears comfortable.] HEENT: [Bilateral arcus, normocephalic, atraumatic. Mucous membranes moist. No jaundice noted. Conjunctiva moist and clear, poor dentition, sclerae anicteric] Neck: No obvious JVD/HJR, no thyromegaly or lymphadenopathy noted. Cardiac: [Fast rate and rhythm, regular] [No murmur, rub or gallop.] Lungs: [Clear to auscultation without accessory muscle use to assist the respiratory pattern.] Oxygen in use via nasal cannula Abdomen: Hyperactive bowel sounds. Abdominal distention noted. No obvious masses appreciated. Musculoskeletal: No fluid collection. Decreased range of motion is noted. Extremities: No clubbing, cyanosis noted. [ No edema noted.] Upper extremity pulses 2+. Lower extremity pulses 2+. Capillary refill less than 3 seconds. Skin: No unusual lesions or rashes. No skin breakdown appreciated. Neuro: Awake, alert and oriented 3. Moves all extremities well without hemiparesis or paralysis. No essential tremor is appreciated. Result/EKG - Labs CBC & BMP: 03/28/17 03:19 03/28/17 03:19 Lab Results: I have reviewed the past 24 hour labs Labs: Laboratory Results - last 24 hr 03/27/17 03/27/17 03/27/17 14:01 14:01 14:01 WBC 7.9 RBC 5.13 Hgb 14.1 Hct 41.1 L MCV 80.1 L MCH 28 MCHC 34.3 RDW 20.0 H Plt Count 191 MPV 10.7 Neut % (Auto) 54.3 Lymph % (Auto) 30.6 [place] % (Auto) 13.7 H Eos % (Auto) 0.8 Baso % (Auto) 0.3 Neut # (Auto) 4.3 Lymph # (Auto) 2.4 [place] # (Auto) 1.1 H Eos # (Auto) 0.1 Baso # (Auto) 0.0 Immature Gran % 0.3 Nucleated RBC % 0.0 Immature Gran # 0.02 Nucleated RBCs # 0.00 INR 1.1 PT Patient/Control Mix 11.6 Sodium 135 L Potassium 5.0 Chloride 101 Carbon Dioxide 25 Anion Gap 14.0 BUN 59 H Creatinine 2.90 H GFR Calculation 27 BUN/Creatinine Ratio 20.00 Glucose 95 Calculated Osmolality 286.1 Calcium 9.5 Magnesium 2.0 Total Bilirubin 0.70 AST 72 H ALT 65 H Alkaline Phosphatase 100 B-Natriuretic Peptide Total Protein 9.5 H Albumin 3.4 Globulin 6.1 H Albumin/Globulin Ratio 0.5 L Urine Color Urine Appearance Urine pH Ur Specific [place] Urine Protein Urine Glucose (UA) Urine Ketones Urine Blood Urine Nitrate Urine Bilirubin Urine Urobilinogen Urine Leukocytes Urine RBC Urine WBC Hyaline Casts Ur Culture Indicated? 03/27/17 03/27/17 03/28/17 14:01 15:10 03:19 WBC 7.9 RBC 4.71 Hgb 12.6 L Hct 37.5 L MCV 79.6 L MCH 27 MCHC 33.6 RDW 19.2 H Plt Count 172 MPV 11.7 Neut % (Auto) 46.3 Lymph % (Auto) 38.1 [place] % (Auto) 13.6 H Eos % (Auto) 1.3 Baso % (Auto) 0.3 Neut # (Auto) 3.7 Lymph # (Auto) 3.0 [place] # (Auto) 1.1 H Eos # (Auto) 0.1 Baso # (Auto) 0.0 Immature Gran % 0.4 Nucleated RBC % 0.0 Immature Gran # 0.03 Nucleated RBCs # 0.00 INR PT Patient/Control Mix Sodium Potassium Chloride Carbon Dioxide Anion Gap BUN Creatinine GFR Calculation BUN/Creatinine Ratio Glucose Calculated Osmolality Calcium Magnesium Total Bilirubin AST ALT Alkaline Phosphatase B-Natriuretic Peptide 185 H Total Protein Albumin Globulin Albumin/Globulin Ratio Urine Color Yellow Urine Appearance Clear Urine pH 6.0 Ur Specific [place] 1.006 Urine Protein Negative Urine Glucose (UA) Negative Urine Ketones Negative Urine Blood Negative Urine Nitrate Negative Urine Bilirubin Negative Urine Urobilinogen < 2.0 H Urine Leukocytes Negative Urine RBC <1 Urine WBC <1 Hyaline Casts 15 Ur Culture Indicated? Not indicated 03/28/17 03:19 WBC RBC Hgb Hct MCV MCH MCHC RDW Plt Count MPV Neut % (Auto) Lymph % (Auto) [place] % (Auto) Eos % (Auto) Baso % (Auto) Neut # (Auto) Lymph # (Auto) [place] # (Auto) Eos # (Auto) Baso # (Auto) Immature Gran % Nucleated RBC % Immature Gran # Nucleated RBCs # INR PT Patient/Control Mix Sodium 137 Potassium 4.2 Chloride 102 Carbon Dioxide 24 Anion Gap 15.2 H BUN 43 H D Creatinine 1.70 H GFR Calculation 51 BUN/Creatinine Ratio 25.00 H Glucose 82 Calculated Osmolality 282.8 Calcium 9.0 Magnesium Total Bilirubin AST ALT Alkaline Phosphatase B-Natriuretic Peptide Total Protein Albumin Globulin Albumin/Globulin Ratio Urine Color Urine Appearance Urine pH Ur Specific [place] Urine Protein Urine Glucose (UA) Urine Ketones Urine Blood Urine Nitrate Urine Bilirubin Urine Urobilinogen Urine Leukocytes Urine RBC Urine WBC Hyaline Casts Ur Culture Indicated? - Diagnostic Findings Procedure: Chest x-ray: report reviewed by pr - EKG EKG results: interpreted by pr EKG shows: tachycardia, sinus rhythm <Brien Dyson - Last Filed: 03/28/17 13:57> History of Present Illness - Consult Narrative History of present illness: Cardiology addendum Currently blood pressure is 100/70 pulse is 120 and sinus O2 sat 100% on 2 L cannula. Chest x-ray shows Cardiomegaly but no heart failure. Both gutters are sharp and clear. Patient has history of alcoholic hepatitis and hepatocellular carcinoma. Unfortunately, he is still drinking. Recent echo done in January showed ejection fraction 15% with severe global hypokinesis and structurally normal valves. Patient has responded to normal saline hydration. BUN 59 admission now 43, creatinine 2.9 on admission now down to 1.70. Potassium 4.2 magnesium 2.0 Plan Cautious fluids Holding carvedilol diltiazem and Lasix for now BMP in a.m. Prognosis quite poor CC: Lora Phelps MD Physical Examination Vital Signs Temp Pulse Resp BP Pulse Ox 97.7 F 99 H 20 61/41 99 03/27/17 12:49 03/27/17 12:49 03/27/17 12:49 03/27/17 12:49 03/27/17 12:49 Result/EKG - Labs CBC & BMP: 03/28/17 03:19 03/28/17 03:19 Labs: Laboratory Results - last 24 hr 03/27/17 03/27/17 03/27/17 14:01 14:01 14:01 WBC 7.9 RBC 5.13 Hgb 14.1 Hct 41.1 L MCV 80.1 L MCH 28 MCHC 34.3 RDW 20.0 H Plt Count 191 MPV 10.7 Neut % (Auto) 54.3 Lymph % (Auto) 30.6 [place] % (Auto) 13.7 H Eos % (Auto) 0.8 Baso % (Auto) 0.3 Neut # (Auto) 4.3 Lymph # (Auto) 2.4 [place] # (Auto) 1.1 H Eos # (Auto) 0.1 Baso # (Auto) 0.0 Immature Gran % 0.3 Nucleated RBC % 0.0 Immature Gran # 0.02 Nucleated RBCs # 0.00 INR 1.1 PT Patient/Control Mix 11.6 Sodium 135 L Potassium 5.0 Chloride 101 Carbon Dioxide 25 Anion Gap 14.0 BUN 59 H Creatinine 2.90 H GFR Calculation 27 BUN/Creatinine Ratio 20.00 Glucose 95 Calculated Osmolality 286.1 Calcium 9.5 Magnesium 2.0 Total Bilirubin 0.70 AST 72 H ALT 65 H Alkaline Phosphatase 100 B-Natriuretic Peptide Total Protein 9.5 H Albumin 3.4 Globulin 6.1 H Albumin/Globulin Ratio 0.5 L Urine Color Urine Appearance Urine pH Ur Specific [place] Urine Protein Urine Glucose (UA) Urine Ketones Urine Blood Urine Nitrate Urine Bilirubin Urine Urobilinogen Urine Leukocytes Urine RBC Urine WBC Hyaline Casts Ur Culture Indicated? 03/27/17 03/27/17 03/28/17 14:01 15:10 03:19 WBC 7.9 RBC 4.71 Hgb 12.6 L Hct 37.5 L MCV 79.6 L MCH 27 MCHC 33.6 RDW 19.2 H Plt Count 172 MPV 11.7 Neut % (Auto) 46.3 Lymph % (Auto) 38.1 [place] % (Auto) 13.6 H Eos % (Auto) 1.3 Baso % (Auto) 0.3 Neut # (Auto) 3.7 Lymph # (Auto) 3.0 [place] # (Auto) 1.1 H Eos # (Auto) 0.1 Baso # (Auto) 0.0 Immature Gran % 0.4 Nucleated RBC % 0.0 Immature Gran # 0.03 Nucleated RBCs # 0.00 INR PT Patient/Control Mix Sodium Potassium Chloride Carbon Dioxide Anion Gap BUN Creatinine GFR Calculation BUN/Creatinine Ratio Glucose Calculated Osmolality Calcium Magnesium Total Bilirubin AST ALT Alkaline Phosphatase B-Natriuretic Peptide 185 H Total Protein Albumin Globulin Albumin/Globulin Ratio Urine Color Yellow Urine Appearance Clear Urine pH 6.0 Ur Specific [place] 1.006 Urine Protein Negative Urine Glucose (UA) Negative Urine Ketones Negative Urine Blood Negative Urine Nitrate Negative Urine Bilirubin Negative Urine Urobilinogen < 2.0 H Urine Leukocytes Negative Urine RBC <1 Urine WBC <1 Hyaline Casts 15 Ur Culture Indicated? Not indicated 03/28/17 03:19 WBC RBC Hgb Hct MCV MCH MCHC RDW Plt Count MPV Neut % (Auto) Lymph % (Auto) [place] % (Auto) Eos % (Auto) Baso % (Auto) Neut # (Auto) Lymph # (Auto) [place] # (Auto) Eos # (Auto) Baso # (Auto) Immature Gran % Nucleated RBC % Immature Gran # Nucleated RBCs # INR PT Patient/Control Mix Sodium 137 Potassium 4.2 Chloride 102 Carbon Dioxide 24 Anion Gap 15.2 H BUN 43 H D Creatinine 1.70 H GFR Calculation 51 BUN/Creatinine Ratio 25.00 H Glucose 82 Calculated Osmolality 282.8 Calcium 9.0 Magnesium Total Bilirubin AST ALT Alkaline Phosphatase B-Natriuretic Peptide Total Protein Albumin Globulin Albumin/Globulin Ratio Urine Color Urine Appearance Urine pH Ur Specific [place] Urine Protein Urine Glucose (UA) Urine Ketones Urine Blood Urine Nitrate Urine Bilirubin Urine Urobilinogen Urine Leukocytes Urine RBC Urine WBC Hyaline Casts Ur Culture Indicated?
--- NOTE | 2017-03-28 12:35 | Hospitalist Progress Note ---
Assessment and Plan (1) Cardiomyopathy Status: Chronic Assessment and plan: 1)hypotension from hypovolemia- resolved. 2)cardiomyopathy- nonischemic- echo pending to eliminate possibility of effusion. Holding ROCÍO and coreg bc of hypotension. 3)[place] on CKD- improved with hydration 4)ascites/hepatitis C/hepatocelluluar carcinoma- [facility] [place] 5)cardiology has seen him- transfer to tele. Current Visit: No Qualifiers: Cardiomyopathy type: unspecified Qualified Code(s): I42.9 - Cardiomyopathy , unspecified (2) Hypotension Status: Acute Current Visit: Yes (3) Acute renal failure Status: Acute Current Visit: No (4) Shortness of breath Status: Acute Current Visit: No (5) Ascites due to alcoholic hepatitis Status: Chronic Current Visit: No (6) Hepatitis C Status: Chronic Current Visit: No (7) Hepatocellular carcinoma Status: Chronic Current Visit: No (8) Sinus tachycardia Status: Chronic Current Visit: No Hospitalist: Subjective Interval history: Mr Wong is feeling much better today. His BP responded to IVF boluses and his creatinine has also come down. His shortness of breath has resolved. Exam - Constitutional Vitals: Period Temp Pulse Resp BP Sys/Hayden Pulse Ox Last 24 Hr 97 F-98 F 99-128 14-22 61-113/41-86 99-100 General appearance: normal weight, no acute distress - Head Head exam: Present: normocephalic, atraumatic - Eye Eye exam: Present: EOMI. Absent: scleral icterus - Respiratory Respiratory exam: Present: clear to auscultation bilaterally - Cardiovascular Cardiovascular exam: Present: regular rate and rhythm, tachycardia - GI/Abdominal GI/Abdominal exam: Present: normal bowel sounds, soft. Absent: tenderness - Extremities Exam Extremities exam: Absent: edema - Neurological Exam Neurological exam: Present: alert, oriented X3 - Skin Skin exam: Present: warm. Absent: dry Results - Labs CBC & BMP: 03/28/17 03:19 03/28/17 03:19 Lab Results: I have reviewed the past 24 hour labs
--- NOTE | 2017-03-28 14:35 | ECHO Report ---
Oleksandr Wong Exam Date: 03/28/2017 14:30 Referring Physician: Technologist: Age: 66 Ht (in): Wt (lb): Gender: M Exam Location: [facility] Echo Indications: BP: / HR: Rhythm: Sinus Technical Quality: Good IMPRESSIONS EF 15 %, severe global hypokinesis. Mildly increased right ventricular size. Moderately increased right atrial size. Moderately increased left atrial size. Mildly thickened mitral valve. Aortic valve sclerosis. Aortic valve sclerosis. Pulmonic valve not well visualized. No pericardial effusion. Normal size aortic root and proximal ascending aorta. MEASUREMENTS (Male / Female) Normal Values FINDINGS Left Ventricle EF 15 %, severe global hypokinesis. Right Ventricle Mildly increased right ventricular size. Right Atrium Moderately increased right atrial size. Left Atrium Moderately increased left atrial size. Mitral Valve Mildly thickened mitral valve. Aortic Valve Aortic valve sclerosis. Tricuspid Valve Morphologically normal tricuspid valve. Pulmonic Valve Pulmonic valve not well visualized. Pericardium No pericardial effusion. Aorta Normal size aortic root and proximal ascending aorta. Zac Dyson (Electronically Signed) Final Date: 28 March 2017 14:34
[2017-03-28] MEDS: ENOXAPARIN 30 MG/0.3 ML SYRINGE SUBCUT SCH (21:26)
[2017-03-29 04:54] LABS: Basophils % 0.3 % (0.0-0.8); Eosinophils # 0.1 10*3/uL (0.0-0.87); Eosinophils % 1.6 % (0.00-10.9); Hematocrit 39.2 VOL% (42.0-52.0); Hemoglobin 13.1 GM/DL (14.0-18.0); Immature Granulocytes % 0.1 %; Immature Granulocytes Absolute 0.01 #; Lymphocytes # 2.6 10*3/uL (1.4-4.0); Lymphocytes % 36.7 % (21.2-54.2); Mean Corpuscular HGB Conc 33.4 GM/DL (32-36); Mean Corpuscular Hemoglobin 27 PG (27-34); Mean Corpuscular Volume 80.7 FL (87-102); Mean Platelet Volume 10.8 FL (9.6-12.0); Monocytes # 0.9 10*3/uL (0.11-0.8); Monocytes % 12.9 % (1.7-12.7); Neutrophils # 3.4 10*3/uL (1.4-7.4); Neutrophils % 48.4 % (38.7-73.9); Platelet Count 135 T/CUMM (130-400); Red Blood Count 4.86 MC/CUMM (3.8-5.5); Red Cell Distribution Width 19.4 % (9.3-17.3)
[2017-03-29 05:24] LABS: Calcium 8.5 MG/DL (8.5-10.1); Magnesium 1.8 MG/DL (1.8-2.4); Osmolality,Calculated 276.8 MOS/KG (273-304); Potassium 4.6 MMOL/L (3.5-5.1)
[2017-03-29] MEDS: SODIUM CHLORIDE 0.9% 1,000 ML IV SCH ×2 (05:31→16:19)
--- NOTE | 2017-03-29 08:48 | Cardiology Progress Note ---
Cardiology - PN: Subj Interval history: Cardiology note awake and alert Blood pressure better. 120/70 O2 sat 99 on 2 L Telemetry shows sinus rhythm Decreased breath sounds few crackles on the right side Regular rhythm White count 7.0 hemoglobin 13.1 hematocrit 39.2 Sodium 137 potassium 4.6 chloride 107 CO2 22 BUN 23 creatinine 1.10 Plan Restart carvedilol 3.125 mg twice daily Restart lisinopril 2.5 mg daily Exam (Progress Note) - Constitutional Vitals: Period Temp Pulse Resp BP Sys/Hayden Pulse Ox Last 24 Hr 96.8 F-97.3 F 125-128 14-20 84-127/64-90 96-100 Result/EKG - Labs CBC & BMP: 03/29/17 04:32 03/29/17 04:32 Labs: Laboratory Results - last 24 hr 03/29/17 03/29/17 04:32 04:32 WBC 7.0 RBC 4.86 Hgb 13.1 L Hct 39.2 L MCV 80.7 L MCH 27 MCHC 33.4 RDW 19.4 H Plt Count 135 D MPV 10.8 Neut % (Auto) 48.4 Lymph % (Auto) 36.7 [place] % (Auto) 12.9 H Eos % (Auto) 1.6 Baso % (Auto) 0.3 Neut # (Auto) 3.4 Lymph # (Auto) 2.6 [place] # (Auto) 0.9 H Eos # (Auto) 0.1 Baso # (Auto) 0.0 Immature Gran % 0.1 Nucleated RBC % 0.0 Immature Gran # 0.01 Nucleated RBCs # 0.00 Sodium 137 Potassium 4.6 Chloride 107 Carbon Dioxide 22 Anion Gap 12.6 BUN 23 H Creatinine 1.10 GFR Calculation 87 BUN/Creatinine Ratio 20.00 Glucose 95 Calculated Osmolality 276.8 Calcium 8.5 Magnesium 1.8
[2017-03-29] MEDS: ASPIRIN EC 81 MG TABLET PO SCH (09:07)
[2017-03-29] MEDS: PANTOPRAZOLE 40 MG TABLET PO SCH (09:07)
[2017-03-29] MEDS: CHOLECALCIFEROL 1,000 UNIT TABLET PO SCH (09:07)
[2017-03-29] MEDS: BUDESONIDE/FORMOTEROL 160-4.5 INHALER 6 GM INH SCH ×2 (09:10→21:00)
[2017-03-29] MEDS: LACTULOSE 20 GM/30 ML UDCUP PO SCH ×2 (09:36→20:59)
[2017-03-29] MEDS: CARVEDILOL 3.125 MG TABLET PO SCH ×2 (10:19→21:00)
[2017-03-29] MEDS: LISINOPRIL 2.5 MG TABLET PO SCH (11:46)
--- NOTE | 2017-03-29 13:55 | Hospitalist Progress Note ---
Assessment and Plan (1) Cardiomyopathy Status: Chronic Assessment and plan: 1)hypotension from hypovolemia- resolved. 2)cardiomyopathy- nonischemic- echo did not show effusion, EF remains very low. ROCÍO and coreg restarted and BP tolerating. His heart rate remains tachycardic, monitor on coreg. 3)HARRY on CKD- resolved with hydration 4)ascites/hepatitis C/hepatocelluluar carcinoma- [facility] [place] 5)cardiology has seen him- transfer to [facility]. Current Visit: No Qualifiers: Cardiomyopathy type: unspecified Qualified Code(s): I42.9 - Cardiomyopathy , unspecified (2) Hypotension Status: Acute Current Visit: Yes (3) Acute renal failure Status: Acute Current Visit: No (4) Shortness of breath Status: Acute Current Visit: No (5) Ascites due to alcoholic hepatitis Status: Chronic Current Visit: No (6) Hepatitis C Status: Chronic Current Visit: No (7) Hepatocellular carcinoma Status: Chronic Current Visit: No (8) Sinus tachycardia Status: Chronic Current Visit: No Hospitalist: Subjective Interval history: Mr Wong is feeling better today than on admission, and breathing easier. Dr Dyson restarted his ROCÍO and coreg yesterday and his Bp has tolerated it. He has not yet been out of bed except to go to the bathroom. Exam - Constitutional Vitals: Period Temp Pulse Resp BP Sys/Hayden Pulse Ox Last 24 Hr 96.8 F-97.4 F 125-128 18-20 107-127/72-79 96-100 General appearance: normal weight, no acute distress - Head Head exam: Present: normocephalic, atraumatic - Eye Eye exam: Present: EOMI. Absent: scleral icterus - Respiratory Respiratory exam: Present: rales (few at bases) - Cardiovascular Cardiovascular exam: Present: regular rate and rhythm - GI/Abdominal GI/Abdominal exam: Present: normal bowel sounds, soft. Absent: tenderness - Extremities Exam Extremities exam: Absent: edema - Neurological Exam Neurological exam: Present: alert, oriented X3 - Skin Skin exam: Present: warm, dry Results - Labs CBC & BMP: 03/29/17 04:32 03/29/17 04:32 Lab Results: I have reviewed the past 24 hour labs
[2017-03-29] MEDS: ENOXAPARIN 30 MG/0.3 ML SYRINGE SUBCUT SCH (21:00)
[2017-03-30] MEDS: SODIUM CHLORIDE 0.9% 1,000 ML IV SCH ×3 (02:40→23:14)
[2017-03-30 05:08] LABS: Basophils % 0.1 % (0.0-0.8); Eosinophils # 0.1 10*3/uL (0.0-0.87); Eosinophils % 1.4 % (0.00-10.9); Hematocrit 37.7 VOL% (42.0-52.0); Hemoglobin 12.5 GM/DL (14.0-18.0); Immature Granulocytes % 0.3 %; Immature Granulocytes Absolute 0.02 #; Lymphocytes # 2.9 10*3/uL (1.4-4.0); Lymphocytes % 39.2 % (21.2-54.2); Mean Corpuscular HGB Conc 33.2 GM/DL (32-36); Mean Corpuscular Hemoglobin 27 PG (27-34); Mean Corpuscular Volume 80.6 FL (87-102); Mean Platelet Volume 11.8 FL (9.6-12.0); Monocytes # 1.1 10*3/uL (0.11-0.8); Monocytes % 14.2 % (1.7-12.7); Neutrophils # 3.3 10*3/uL (1.4-7.4); Neutrophils % 44.8 % (38.7-73.9); Platelet Count 142 T/CUMM (130-400); Red Blood Count 4.68 MC/CUMM (3.8-5.5); Red Cell Distribution Width 19.2 % (9.3-17.3); White Blood Count 7.4 T/CUMM (4-12)
[2017-03-30 05:37] LABS: Calcium 8.2 MG/DL (8.5-10.1); Magnesium 1.7 MG/DL (1.8-2.4); Osmolality,Calculated 277.5 MOS/KG (273-304); Potassium 4.2 MMOL/L (3.5-5.1)
[2017-03-30] MEDS: LISINOPRIL 2.5 MG TABLET PO SCH ×2 (08:22→10:17)
[2017-03-30] MEDS: PANTOPRAZOLE 40 MG TABLET PO SCH (08:22)
[2017-03-30] MEDS: ASPIRIN EC 81 MG TABLET PO SCH (08:23)
[2017-03-30] MEDS: LACTULOSE 20 GM/30 ML UDCUP PO SCH ×2 (08:23→23:15)
[2017-03-30] MEDS: CHOLECALCIFEROL 1,000 UNIT TABLET PO SCH (08:23)
[2017-03-30] MEDS: BUDESONIDE/FORMOTEROL 160-4.5 INHALER 6 GM INH SCH ×2 (08:23→21:57)
[2017-03-30] MEDS: CARVEDILOL 3.125 MG TABLET PO SCH (08:23)
[2017-03-30] MEDS ORDERED: MAGNESIUM SULF RIDER 2 GM in PREMIX 1 EACH IV ONE (09:26)
--- NOTE | 2017-03-30 09:58 | Cardiology Progress Note ---
<Steffi Walsh E - Last Filed: 03/30/17 09:42> Assessment and Plan - Time spent with patient Time spent with patient: Greater than 30 minutes (1) Cardiomyopathy Status: Chronic Assessment and plan: SEE PLAN OF CARE LISTED BELOW Current Visit: Yes (2) Hepatocellular carcinoma Status: Chronic Assessment and plan: SEE PLAN OF CARE LISTED BELOW Current Visit: Yes (3) Hypotension Status: Resolved Assessment and plan: SEE PLAN OF CARE LISTED BELOW Current Visit: Yes (4) Cirrhosis Status: Chronic Assessment and plan: SEE PLAN OF CARE LISTED BELOW Current Visit: Yes Qualifiers: Hepatic cirrhosis type: alcoholic cirrhosis Ascites presence: with ascites Qualified Code(s): K70.31 - Alcoholic cirrhosis of liver with ascites (5) Shortness of breath Status: Chronic Assessment and plan: SEE PLAN OF CARE LISTED BELOW Current Visit: No (6) Sinus tachycardia Status: Chronic Assessment and plan: SEE PLAN OF CARE LISTED BELOW Current Visit: No (7) Weakness Status: Chronic Assessment and plan: SEE PLAN OF CARE LISTED BELOW Current Visit: Yes (8) Hepatitis C Status: Chronic Assessment and plan: SEE PLAN OF CARE LISTED BELOW Current Visit: Yes Qualifiers: Viral hepatitis chronicity: chronic Cardiology - PN: Subj Interval history: [employer] ATTENDANT: DR. GARCIA PCP: [facility] Patient is being seen in the CCU. SUMMARY: Mr. Wong, 66BM, with a history of: hypertension, diabetes, cardiomyopathy (EF 15%), hepatocellular carcinoma, hepatitis C, ascites due to alcoholic hepatitis, COPD and depression. Hospitalized March 27, 2017 with hypotension and sinus tachycardia. He appeared to be volume depleted and has been resuscitated with fluids. Cardiology was consulted for persistent hypotension and tachycardia. Creatinine has now normalized although was 2.9 on admission. Echocardiogram February 14, 2017 revealed following: EF 15%, PAP 31 mmHg , no significant valvular abnormality. Patient's cardiomyopathy is of unknown etiology. He is not a candidate for invasive workup given his multiple comorbidities including hepatocellular cancer. Suspect may be related to alcohol abuse as he continues to admittedly use alcohol daily. MARCH 30, 2017: Patient has been moved to telemetry. He continues to improve. His breathing is nonlabored and he appears very comfortable. Denies chest pain , heaviness or tightness. His acute renal insufficiency has now resolved as his creatinine is 1.0. Blood pressure is now normalized. He remains tachycardic but this appears to be a sinus tachycardia. I see no arrhythmia overnight. I will give him IV digoxin now and monitor his heart rate. Also, I will try to increase his Coreg to 6.25 mg twice daily, hold his ROCÍO inhibitor in favor of a rate controlling agent. Blood cultures negative preliminarily. Echocardiogram revealed no significant change from prior echo, no pericardial effusion or tamponade, EF 15%. Will further discuss with Dr. Dyson and await additional recommendations. ASSESSMENT/PLAN: 1. HYPOTENSION -resolved, tolerating low-dose beta blockade and ROCÍO inhibitor. Suspect hypotension is related to cardiac pump failure. Will be a chronic problem. 2. SINUS TACHYCARDIA -continues with heart rate in the 120s. It appears to be sinus tachycardia with no significant arrhythmia. His creatinine has normalized, I will give 1 dose of IV digoxin. May require additional dosing while hospitalized. Concerned for home dosing of digoxin as he did have acute renal failure on arrival and this may be a recurrent problem in his future as well. I will increase his beta blockade knowing that I will have to sacrifice the ROCÍO inhibitor. 3. HEPATOCELLULAR CARCINOMA - continue current plan of care. Poor prognosis. [facility] [place] [facility]. 4. RENAL INSUFFICIENCY - stage III on arrival now resolved. I believe patient has some underlying degree of CKD (stage undetermined as we have no records from [place]) however, on admission, creatinine had significantly worsened from discharge. This is since now normalized. 5. HEPATITIS C - continue current plan of care 6. ASCITIES DUE TO ALCOHOLIC HEPATITIS - continue current plan of care. Had paracentesis last hospitalization. 7. SHORTNESS OF BREATH - multifactorial. Improved. CXR does not reveal CHF. Strict I&O and daily weights. 8. CARDIOMYOPATHY - etiology undetermined and he is not a candidate for invasive workup. EF 15%. Continue with current plan of care. Exam (Progress Note) - Constitutional Vitals: Period Temp Pulse Resp BP Sys/Hayden Pulse Ox Last 24 Hr 96.6 F-98.3 F 123-130 16-20 95-127/67-92 96-100 Exam: General: [Appears well with no apparent distress.] [Pleasant and cooperative. ] [Appears comfortable.] HEENT: [Bilateral arcus, normocephalic, atraumatic. Poor dentition. Mucous membranes moist. No jaundice noted. Conjunctiva moist and clear, sclerae anicteric] Neck: No obvious JVD/HJR, no thyromegaly or lymphadenopathy noted. No carotid bruit appreciated Cardiac: [Tachycardic rate, regular rhythm. No obvious murmur, rub or gallop. Lungs: [Scant crackles in bases without accessory muscle use to assist the respiratory pattern.] Oxygen in use via nasal cannula Abdomen: Bowel sounds normoactive, slight distention noted with ascites. Musculoskeletal: No fluid collection. Decreased range of motion is noted. Extremities: No clubbing, cyanosis noted. [ No edema noted.] Upper extremity pulses 2+. Lower extremity pulses 2+. Capillary refill less than 3 seconds. Skin: No unusual lesions or rashes. No skin breakdown appreciated. Neuro: Awake, alert and oriented 3. Moves all extremities well without hemiparesis or paralysis. No essential tremor is appreciated. Result/EKG - Labs CBC & BMP: 03/30/17 03:00 03/30/17 03:00 Lab Results: I have reviewed the past 24 hour labs Labs: Laboratory Results - last 24 hr 03/30/17 03/30/17 03:00 03:00 WBC 7.4 RBC 4.68 Hgb 12.5 L Hct 37.7 L MCV 80.6 L MCH 27 MCHC 33.2 RDW 19.2 H Plt Count 142 MPV 11.8 Neut % (Auto) 44.8 Lymph % (Auto) 39.2 [place] % (Auto) 14.2 H Eos % (Auto) 1.4 Baso % (Auto) 0.1 Neut # (Auto) 3.3 Lymph # (Auto) 2.9 [place] # (Auto) 1.1 H Eos # (Auto) 0.1 Baso # (Auto) 0.0 Immature Gran % 0.3 Nucleated RBC % 0.0 Immature Gran # 0.02 Nucleated RBCs # 0.00 Sodium 139 Potassium 4.2 Chloride 106 Carbon Dioxide 23 Anion Gap 14.2 BUN 18 Creatinine 1.00 GFR Calculation 96 BUN/Creatinine Ratio 18.00 Glucose 81 Calculated Osmolality 277.5 Calcium 8.2 L Magnesium 1.7 L - Diagnostic Findings Procedure: Chest x-ray: report reviewed by me - EKG EKG results: interpreted by nh EKG shows: tachycardia <Brien Dyson - Last Filed: 03/30/17 10:07> Cardiology - PN: Subj Interval history: Cardiology addendum. Denies shortness of breath. Blood pressure 127/78. Telemetry shows sinus tach rate 120 Creatinine is 1.0 BUN 18. Plan Increase carvedilol 6.25 mg twice daily Digoxin 0.25 mg daily Restart lisinopril 2.5 mg daily Exam (Progress Note) - Constitutional Vitals: Period Temp Pulse Resp BP Sys/Hayden Pulse Ox Last 24 Hr 96.6 F-98.3 F 123-130 16-20 95-127/67-92 96-100 Result/EKG - Labs CBC & BMP: 03/30/17 03:00 03/30/17 03:00 Labs: Laboratory Results - last 24 hr 03/30/17 03/30/17 03:00 03:00 WBC 7.4 RBC 4.68 Hgb 12.5 L Hct 37.7 L MCV 80.6 L MCH 27 MCHC 33.2 RDW 19.2 H Plt Count 142 MPV 11.8 Neut % (Auto) 44.8 Lymph % (Auto) 39.2 [place] % (Auto) 14.2 H Eos % (Auto) 1.4 Baso % (Auto) 0.1 Neut # (Auto) 3.3 Lymph # (Auto) 2.9 [place] # (Auto) 1.1 H Eos # (Auto) 0.1 Baso # (Auto) 0.0 Immature Gran % 0.3 Nucleated RBC % 0.0 Immature Gran # 0.02 Nucleated RBCs # 0.00 Sodium 139 Potassium 4.2 Chloride 106 Carbon Dioxide 23 Anion Gap 14.2 BUN 18 Creatinine 1.00 GFR Calculation 96 BUN/Creatinine Ratio 18.00 Glucose 81 Calculated Osmolality 277.5 Calcium 8.2 L Magnesium 1.7 L
[2017-03-30] MEDS ORDERED: DIGOXIN 0.5 MG/2 ML AMP IV ONE (10:00)
--- NOTE | 2017-03-30 14:32 | Hospitalist Progress Note ---
Assessment and Plan (1) Cardiomyopathy Status: Chronic Assessment and plan: 1)hypotension from hypovolemia- resolved. 2)cardiomyopathy- nonischemic- echo did not show effusion, EF remains very low. ROCÍO and coreg restarted and BP tolerating. His heart rate remains tachycardic, and Dr Dyson has started Dig. 3)HARRY on CKD- resolved with hydration 4)ascites/hepatitis C/hepatocelluluar carcinoma- follows with [facility] in [place]. 5)dispo- anticipate home tomorrow. Fills meds at [facility], will need to buy initial month so he won't miss any doses. Current Visit: No Qualifiers: Cardiomyopathy type: unspecified Qualified Code(s): I42.9 - Cardiomyopathy , unspecified (2) Hypotension Status: Resolved Current Visit: Yes (3) Acute renal failure Status: Acute Current Visit: No (4) Shortness of breath Status: Chronic Current Visit: No (5) Ascites due to alcoholic hepatitis Status: Chronic Current Visit: No (6) Hepatitis C Status: Chronic Current Visit: Yes Qualifiers: Viral hepatitis chronicity: chronic (7) Hepatocellular carcinoma Status: Chronic Current Visit: No (8) Sinus tachycardia Status: Chronic Current Visit: No Hospitalist: Subjective Interval history: Mr Wong is feeling better as he has done each day since admission. He is breathing easily and thinks he will do well at home- he does not think he needs a swing bed at this time. No chest pain. He had many appropriate questions about his medicines and how he was to take them at home. Exam - Constitutional Vitals: Period Temp Pulse Resp BP Sys/Hayden Pulse Ox Last 24 Hr 96.6 F-98.3 F 121-130 16-20 95-127/67-92 96-100 General appearance: normal weight, no acute distress - Eye Eye exam: Present: EOMI. Absent: scleral icterus - Respiratory Respiratory exam: Present: clear to auscultation bilaterally - Cardiovascular Cardiovascular exam: Present: regular rate and rhythm, tachycardia - GI/Abdominal GI/Abdominal exam: Present: normal bowel sounds, soft. Absent: tenderness - Extremities Exam Extremities exam: Absent: edema Results - Labs CBC & BMP: 03/30/17 03:00 03/30/17 03:00 Lab Results: I have reviewed the past 24 hour labs
[2017-03-30] MEDS: ENOXAPARIN 40 MG/0.4 ML SYRINGE SUBCUT SCH (21:57)
[2017-03-30] MEDS: CARVEDILOL 6.25 MG TABLET PO SCH (21:57)
[2017-03-31] MEDS: SODIUM CHLORIDE 0.9% 1,000 ML IV SCH ×2 (00:09→09:59)
[2017-03-31 06:04] LABS: Basophils % 0.3 % (0.0-0.8); Eosinophils # 0.1 10*3/uL (0.0-0.87); Eosinophils % 1.5 % (0.00-10.9); Hematocrit 35.5 VOL% (42.0-52.0); Hemoglobin 11.8 GM/DL (14.0-18.0); Immature Granulocytes % 0.2 %; Immature Granulocytes Absolute 0.01 #; Lymphocytes # 2.3 10*3/uL (1.4-4.0); Lymphocytes % 39.5 % (21.2-54.2); Mean Corpuscular HGB Conc 33.2 GM/DL (32-36); Mean Corpuscular Hemoglobin 27 PG (27-34); Mean Corpuscular Volume 81.4 FL (87-102); Mean Platelet Volume 11.1 FL (9.6-12.0); Monocytes # 0.9 10*3/uL (0.11-0.8); Monocytes % 15.9 % (1.7-12.7); Neutrophils # 2.5 10*3/uL (1.4-7.4); Neutrophils % 42.6 % (38.7-73.9); Platelet Count 132 T/CUMM (130-400); Red Blood Count 4.36 MC/CUMM (3.8-5.5); Red Cell Distribution Width 19.4 % (9.3-17.3); White Blood Count 5.9 T/CUMM (4-12)
[2017-03-31 06:42] LABS: Calcium 8.7 MG/DL (8.5-10.1); Magnesium 1.8 MG/DL (1.8-2.4); Osmolality,Calculated 276.5 MOS/KG (273-304); Potassium 4.3 MMOL/L (3.5-5.1)
[2017-03-31 07:10] LABS: Eosinophils 1 % (0-10); Lymphocytes 33 % (20-55); Platelet Estimate Decreased; Segmented Neutrophils 52 % (50-85); Total Cells Counted 100
[2017-03-31] MEDS: LACTULOSE 20 GM/30 ML UDCUP PO SCH ×2 (08:31→20:55)
[2017-03-31] MEDS: LISINOPRIL 2.5 MG TABLET PO SCH (08:31)
[2017-03-31] MEDS: CHOLECALCIFEROL 1,000 UNIT TABLET PO SCH (08:32)
[2017-03-31] MEDS: PANTOPRAZOLE 40 MG TABLET PO SCH (08:32)
[2017-03-31] MEDS: ASPIRIN EC 81 MG TABLET PO SCH (08:32)
[2017-03-31] MEDS: BUDESONIDE/FORMOTEROL 160-4.5 INHALER 6 GM INH SCH ×2 (08:32→20:55)
[2017-03-31] MEDS: CARVEDILOL 6.25 MG TABLET PO SCH (08:32)
[2017-03-31] MEDS ORDERED: METOPROLOL TARTRATE 5 MG/5 ML VIAL IV ONE (09:46)
--- NOTE | 2017-03-31 11:43 | Cardiology Progress Note ---
Cardiology - PN: Subj Interval history: Cardiology note 66-year-old man with end-stage cardiomyopathy EF 15% and hepatocellular carcinoma admitted with hypotension weakness and sinus tachycardia. Has been receiving normal saline and has been volume repleted. Blood pressure is 112/70. Telemetry shows sinus tach 115-120 range. Denies shortness of breath or chest pain. Regular rhythm no gallop Decreased breath sounds few rhonchi in the right base Abdomen nontender Lab data today White count 5.9 hemoglobin 11.8 hematocrit 35.5 platelet count 132,000 Sodium 139 potassium 4.3 chloride 105 CO2 25 BUN 15 creatinine 0.9 glucose 110 Impression End-stage cardia myopathy EF 15% Hypotension resolved plan Alcoholic hepatitis Hepatocellular carcinoma COPD Sinus tachycardia Plan DC IV fluids Increase carvedilol 12.5 g twice daily 5 mg IV Lopressor now Exam (Progress Note) - Constitutional Vitals: Period Temp Pulse Resp BP Sys/Hayden Pulse Ox Last 24 Hr 97.2 F-98.8 F 120-127 18-20 108-119/66-82 92-98 Result/EKG - Labs CBC & BMP: 03/31/17 04:53 03/31/17 04:53 Labs: Laboratory Results - last 24 hr 03/31/17 03/31/17 04:53 04:53 WBC 5.9 RBC 4.36 Hgb 11.8 L Hct 35.5 L MCV 81.4 L MCH 27 MCHC 33.2 RDW 19.4 H Plt Count 132 MPV 11.1 Neut % (Auto) 42.6 Lymph % (Auto) 39.5 [place] % (Auto) 15.9 H Eos % (Auto) 1.5 Baso % (Auto) 0.3 Neut # (Auto) 2.5 Lymph # (Auto) 2.3 [place] # (Auto) 0.9 H Eos # (Auto) 0.1 Baso # (Auto) 0.0 Total Counted 100 Immature Gran % 0.2 Nucleated RBC % 0.0 Immature Gran # 0.01 Segmented Neutrophils 52 Lymphocytes 33 Monocytes 13 Eosinophils 1 Basophils 1.0 H Nucleated RBCs # 0.00 Platelet Estimate Decreased Sodium 139 Potassium 4.3 Chloride 105 Carbon Dioxide 25 Anion Gap 13.3 BUN 15 Creatinine 0.90 GFR Calculation 110 BUN/Creatinine Ratio 16.00 Glucose 87 Calculated Osmolality 276.5 Calcium 8.7 Magnesium 1.8
--- NOTE | 2017-03-31 13:35 | Hospitalist Progress Note ---
Assessment and Plan (1) Cardiomyopathy Status: Chronic Assessment and plan: 1)hypotension from hypovolemia- resolved. stop IVF. 2)cardiomyopathy- nonischemic- echo did not show effusion, EF remains very low. Tolerating ROCÍO and coreg. sinus tach- no improvement with DIG or IV lopressor. Increase coreg to 12.5 BID. 3)HARRY on CKD- resolved with hydration 4)ascites/hepatitis C/hepatocelluluar carcinoma- follows with [facility] in [place]. 5)dispo- anticipate home tomorrow. Fills meds at [facility], will need to buy initial month so he won't miss any doses. Current Visit: No Qualifiers: Cardiomyopathy type: unspecified Qualified Code(s): I42.9 - Cardiomyopathy , unspecified (2) Hypotension Status: Resolved Current Visit: Yes (3) Acute renal failure Status: Acute Current Visit: No (4) Shortness of breath Status: Chronic Current Visit: No (5) Ascites due to alcoholic hepatitis Status: Chronic Current Visit: No (6) Hepatitis C Status: Chronic Current Visit: Yes Qualifiers: Viral hepatitis chronicity: chronic (7) Hepatocellular carcinoma Status: Chronic Current Visit: No (8) Sinus tachycardia Status: Chronic Current Visit: No Hospitalist: Subjective Interval history: Mr Wong feels ok this morning though his heart rate continues in the 120s. Dr Dyson ordered lopressor 5mg IV once and it did not significantly change his heart rate. He denies shortness of breath at rest. Exam - Constitutional Vitals: Period Temp Pulse Resp BP Sys/Hayden Pulse Ox Last 24 Hr 97.2 F-98.8 F 119-127 18-20 102-119/66-82 92-98 General appearance: normal weight, no acute distress - Eye Eye exam: Present: EOMI. Absent: scleral icterus - Respiratory Respiratory exam: Present: clear to auscultation bilaterally - Cardiovascular Cardiovascular exam: Present: regular rate and rhythm, tachycardia - GI/Abdominal GI/Abdominal exam: Present: normal bowel sounds, soft. Absent: tenderness - Extremities Exam Extremities exam: Absent: edema Results - Labs CBC & BMP: 03/31/17 04:53 03/31/17 04:53 Lab Results: I have reviewed the past 24 hour labs
[2017-03-31] MEDS: CARVEDILOL 12.5 MG TABLET PO SCH (20:54)
[2017-03-31] MEDS: ENOXAPARIN 40 MG/0.4 ML SYRINGE SUBCUT SCH (20:54)
[2017-04-01 04:21] LABS: Basophils % 0.4 % (0.0-0.8); Eosinophils # 0.2 10*3/uL (0.0-0.87); Eosinophils % 2.1 % (0.00-10.9); Hematocrit 37.7 VOL% (42.0-52.0); Hemoglobin 12.4 GM/DL (14.0-18.0); Immature Granulocytes % 0.3 %; Immature Granulocytes Absolute 0.02 #; Lymphocytes % 40.2 % (21.2-54.2); Mean Corpuscular HGB Conc 32.9 GM/DL (32-36); Mean Corpuscular Hemoglobin 27 PG (27-34); Mean Corpuscular Volume 82.3 FL (87-102); Mean Platelet Volume 11.2 FL (9.6-12.0); Monocytes # 1.2 10*3/uL (0.11-0.8); Monocytes % 16.4 % (1.7-12.7); Neutrophils # 3.1 10*3/uL (1.4-7.4); Neutrophils % 40.6 % (38.7-73.9); Platelet Count 147 T/CUMM (130-400); Red Blood Count 4.58 MC/CUMM (3.8-5.5); Red Cell Distribution Width 19.6 % (9.3-17.3); White Blood Count 7.5 T/CUMM (4-12)
[2017-04-01 04:56] LABS: Calcium 9.4 MG/DL (8.5-10.1); Magnesium 1.7 MG/DL (1.8-2.4); Osmolality,Calculated 271.8 MOS/KG (273-304); Potassium 4.2 MMOL/L (3.5-5.1)
[2017-04-01 06:30] LABS: Eosinophils 1 % (0-10); Hypochromasia 1+; Lymphocytes 38 % (20-55); Platelet Estimate Normal; Segmented Neutrophils 44 % (50-85); Total Cells Counted 100
[2017-04-01] MEDS ORDERED: MAGNESIUM SULF RIDER 4 GM in PREMIX 1 EACH IV PRN (07:25)
[2017-04-01] MEDS ORDERED: MAGNESIUM SULF RIDER 2 GM in PREMIX 1 EACH IV PRN (07:25)
[2017-04-01] MEDS: CHOLECALCIFEROL 1,000 UNIT TABLET PO SCH (08:28)
[2017-04-01] MEDS: LISINOPRIL 2.5 MG TABLET PO SCH (08:28)
[2017-04-01] MEDS: CARVEDILOL 12.5 MG TABLET PO SCH ×2 (08:28→20:33)
[2017-04-01] MEDS: ASPIRIN EC 81 MG TABLET PO SCH (08:28)
[2017-04-01] MEDS: PANTOPRAZOLE 40 MG TABLET PO SCH (08:28)
[2017-04-01] MEDS: BUDESONIDE/FORMOTEROL 160-4.5 INHALER 6 GM INH SCH ×2 (08:29→20:33)
[2017-04-01] MEDS: LACTULOSE 20 GM/30 ML UDCUP PO SCH ×2 (08:29→20:33)
--- NOTE | 2017-04-01 08:35 | Hospitalist Progress Note ---
<Marcela Chenda - Last Filed: 04/01/17 08:33> Assessment and Plan (1) Cardiomyopathy Status: Chronic Assessment and plan: Ejection fraction remains very low at an estimated 15%. Is currently on Coreg and lisinopril. Remains tachycardic; however denies any chest pain and discomfort. Coreg was increased on yesterday to 12.5 twice daily. No significant improvement in heart rate noted. Magnesium noted 1.7; we will replace and recheck labs in a.m. Will reevaluate for discharge in a.m. Current Visit: Yes (2) Chronic renal failure Status: Acute Assessment and plan: Renal function has normalized BUN noted at 13 creatinine 1.0. Current Visit: Yes (3) Hypotension Status: Resolved Assessment and plan: Blood pressures are stable. Current Visit: Yes Hospitalist: Subjective Interval history: Patient seen and examined; chart reviewed. No significant overnight events reported. Patient states "my breathing is about the same". Remains tachycardic heart rate noted in 120s. Exam - Constitutional Vitals: Period Temp Pulse Resp BP Sys/Hayden Pulse Ox Last 24 Hr 97.1 F-97.9 F 113-124 18-20 91-128/57-77 96-100 General appearance: normal weight, no acute distress - Head Head exam: Present: normal inspection, normocephalic, atraumatic - Eye Eye exam: Present: EOMI. Absent: conjunctival injection, nystagmus Pupils: Present: VIKI, normal accommodation - ENT ENT exam: Present: normal exam, normal external ear exam - Neck Neck exam: Present: normal inspection. Absent: lymphadenopathy, meningismus, thyromegaly - Respiratory Respiratory exam: Present: clear to auscultation bilaterally. Absent: rales, rhonchi, stridor, wheezes - Cardiovascular Cardiovascular exam: Present: tachycardia. Absent: carotid bruit, diastolic murmur, gallop, JVD, rubs, systolic murmur - GI/Abdominal GI/Abdominal exam: Present: normal bowel sounds, soft - Extremities Exam Extremities exam: Present: normal inspection, normal capillary refill, full ROM. Absent: edema - Back Exam Back exam: Present: normal inspection - Neurological Exam Neurological exam: Present: alert, oriented X3, CN II-XII intact - Psychiatric Psychiatric exam: Present: normal affect, normal mood - Skin Skin exam: Present: normal color, warm, dry Results - Labs CBC & BMP: 04/01/17 03:25 04/01/17 03:25 Lab Results: I have reviewed the past 24 hour labs <[email or web address] - Last Filed: 04/01/17 13:16> Exam - Constitutional Vitals: Period Temp Pulse Resp BP Sys/Hayden Pulse Ox Last 24 Hr 97.1 F-97.9 F 103-124 18-20 91-128/57-77 96-100 Results - Labs CBC & BMP: 04/01/17 03:25 04/01/17 03:25 - Impressions Patient seen and examined. Patient is hemodynamically and clinically stable. He remains tachycardic and blood pressure is stably low. He has no complaints. He is eating well without any problems. He states that his breathing has improved. Labs reviewed. Chart reviewed. I have reviewed the note by VICKI Chen, and I agree with the information. Active Issues: 1. Cardiomyopathy with EF of 15% 2. Hypotension, stable 3. Tachycardia, on coreg; now placed on digoxin; keep mg at least 2 and k at least 4 4. Hepatocellular cancer 5. ETOH hepatitis 6. hypomg: replete; monitor Plan: continue current care; appreciate help by cardiology
--- NOTE | 2017-04-01 11:02 | Cardiology Progress Note ---
Cardiology - PN: Subj Interval history: Cardiology note 66-year-old man with end-stage cardiomyopathy EF 15% and hepatocellular carcinoma admitted with hypotension weakness and sinus tachycardia. Patient has been volume repleted. Telemetry shows sinus tachycardia rate about 110-115 Blood pressure 104/70 O2 sat 97 on 2 L cannula Denies chest pain or shortness of breath. Regular rhythm with gallop Decreased breath sounds but clear Abdomen mild ascites No leg edema Lab data today White count 7.5 hemoglobin 12.4 hematocrit 37.7 Sodium 137 potassium 4.2 chloride 104 CO2 25 BUN 13 creatinine 1.0 glucose 75 magnesium 1.7 Impression End-stage cardia myopathy EF 15% Hypotension resolved with fluids Alcoholic hepatitis Hepatocellular carcinoma COPD Sinus tachycardia Plan Carvedilol 12.5 mg twice daily 0.5 mg digoxin now, then 0.25 mg daily Magnesium replaced Exam (Progress Note) - Constitutional Vitals: Period Temp Pulse Resp BP Sys/Hayden Pulse Ox Last 24 Hr 97.1 F-97.9 F 113-124 18-20 91-128/57-77 96-100 Result/EKG - Labs CBC & BMP: 04/01/17 03:25 04/01/17 03:25 Labs: Laboratory Results - last 24 hr 04/01/17 04/01/17 03:25 03:25 WBC 7.5 RBC 4.58 Hgb 12.4 L Hct 37.7 L MCV 82.3 L MCH 27 MCHC 32.9 RDW 19.6 H Plt Count 147 MPV 11.2 Neut % (Auto) 40.6 Lymph % (Auto) 40.2 [place] % (Auto) 16.4 H Eos % (Auto) 2.1 Baso % (Auto) 0.4 Neut # (Auto) 3.1 Lymph # (Auto) 3.0 [place] # (Auto) 1.2 H Eos # (Auto) 0.2 Baso # (Auto) 0.0 Total Counted 100 Immature Gran % 0.3 Nucleated RBC % 0.0 Immature Gran # 0.02 Segmented Neutrophils 44 L Lymphocytes 38 Monocytes 17 H Eosinophils 1 Nucleated RBCs # 0.00 Platelet Estimate Normal Hypochromasia 1+ Morphology Comment Sodium 137 Potassium 4.2 Chloride 104 Carbon Dioxide 25 Anion Gap 12.2 BUN 13 Creatinine 1.00 GFR Calculation 97 BUN/Creatinine Ratio 13.00 Glucose 75 Calculated Osmolality 271.8 L Calcium 9.4 Magnesium 1.7 L
[2017-04-01] MEDS ORDERED: DIGOXIN 0.25 MG TABLET PO ONE (11:22)
[2017-04-01] MEDS: ENOXAPARIN 40 MG/0.4 ML SYRINGE SUBCUT SCH (20:33)
[2017-04-02 05:02] LABS: Basophils % 0.3 % (0.0-0.8); Eosinophils # 0.2 10*3/uL (0.0-0.87); Eosinophils % 1.9 % (0.00-10.9); Hematocrit 35.8 VOL% (42.0-52.0); Hemoglobin 11.9 GM/DL (14.0-18.0); Immature Granulocytes % 0.3 %; Immature Granulocytes Absolute 0.02 #; Lymphocytes % 37.8 % (21.2-54.2); Mean Corpuscular HGB Conc 33.2 GM/DL (32-36); Mean Corpuscular Hemoglobin 27 PG (27-34); Mean Corpuscular Volume 81.7 FL (87-102); Mean Platelet Volume 10.8 FL (9.6-12.0); Monocytes # 1.3 10*3/uL (0.11-0.8); Neutrophils # 3.4 10*3/uL (1.4-7.4); Neutrophils % 42.7 % (38.7-73.9); Platelet Count 158 T/CUMM (130-400); Red Blood Count 4.38 MC/CUMM (3.8-5.5); Red Cell Distribution Width 19.8 % (9.3-17.3); White Blood Count 7.8 T/CUMM (4-12)
[2017-04-02 05:48] LABS: Albumin 2.7 G/DL (3.4-5.0); Bilirubin,Total 0.7 MG/DL (0.2-1.0); Calcium 8.8 MG/DL (8.5-10.1); Magnesium 1.8 MG/DL (1.8-2.4); Osmolality,Calculated 275.5 MOS/KG (273-304); Phosphorous 4.3 MG/DL (2.5-4.9); Potassium 4.2 MMOL/L (3.5-5.1); Total Protein 7.7 G/DL (6.4-8.3)
[2017-04-02 06:30] LABS: Eosinophils 1 % (0-10); Hypochromasia 1+; Lymphocytes 36 % (20-55); Segmented Neutrophils 46 % (50-85); Total Cells Counted 100
[2017-04-02 06:31] LABS: Microcytosis 1+; Platelet Estimate Adequate
[2017-04-02] MEDS: PANTOPRAZOLE 40 MG TABLET PO SCH (09:47)
[2017-04-02] MEDS: ASPIRIN EC 81 MG TABLET PO SCH (09:47)
[2017-04-02] MEDS: CHOLECALCIFEROL 1,000 UNIT TABLET PO SCH (09:47)
[2017-04-02] MEDS: LACTULOSE 20 GM/30 ML UDCUP PO SCH (09:47)
[2017-04-02] MEDS: LISINOPRIL 2.5 MG TABLET PO SCH (09:47)
[2017-04-02] MEDS: CARVEDILOL 12.5 MG TABLET PO SCH (09:48)
[2017-04-02] MEDS: BUDESONIDE/FORMOTEROL 160-4.5 INHALER 6 GM INH SCH (09:49)
[2017-04-02] MEDS ORDERED: MAGNESIUM OXIDE 400 MG TABLET PO SCH (10:30)
--- NOTE | 2017-04-02 10:35 | Cardiology Progress Note ---
Assessment and Plan (1) Cardiomyopathy Status: Chronic Assessment and plan: 66-year-old black male, nonischemic cardiac myopathy, ejection fraction 15%, sinus tachycardia, EtOH cirrhosis, hepatitis C, hepatocellular carcinoma, hypertension. Blood pressure improved with fluid repletion. Asymptomatic nonsustained VT. Acute kidney injury on admission, resolved. -Tachycardia is likely compensatory for low stroke volume. Not symptomatic. Occasional short, asymptomatic nonsustained VT's. Continue Coreg 12.5 mg twice daily. -Gram-positive rods from blood culture. Cell counts are normal, he is not septic. Doubt endocarditis. -Continue lisinopril 2.5 mg daily. Recent acute kidney injury, hypotension limits dose titration at this time. -Digoxin was recently started. Continue 0.25 mg daily. -Start p.o. magnesium supplement, 400 mg twice daily daily -He has poor oncological prognosis due to hepatocellular carcinoma, he is not a candidate for ICD or invasive evaluation for etiology of cardiomyopathy. Likely ETOH. No ACS. -He had poor compliance with follow-up in the past. Discussed importance of further cardiac treatment, he will need to see Dr. Funez in 2 weeks to adjust CHF regimen Current Visit: No Qualifiers: Cardiomyopathy type: unspecified Qualified Code(s): I42.9 - Cardiomyopathy , unspecified (2) Hepatocellular carcinoma Status: Chronic Current Visit: No (3) Ascites due to alcoholic hepatitis Status: Chronic Current Visit: No (4) Hepatitis C Status: Chronic Current Visit: Yes Qualifiers: Viral hepatitis chronicity: chronic (5) Acute renal failure Status: Acute Current Visit: No (6) Sinus tachycardia Status: Chronic Current Visit: No Cardiology - PN: Subj Interval history: He is feeling better. SR/ST around 100. Occ PVCs, had few short NSVTs, no symptomatic. He was able to walk around, without orthostatic issues. Blood pressure still trending up Exam (Progress Note) - Constitutional Vitals: Period Temp Pulse Resp BP Sys/Hayden Pulse Ox Last 24 Hr 97.4 F-98.2 F 97-120 18-20 100-120/53-71 94-100 General appearance: normal weight, no acute distress - Head Head exam: Present: normal inspection, normocephalic - Eye Eye exam: Absent: conjunctival injection, scleral icterus Pupils: Absent: constricted - ENT ENT exam: Present: normal external ear exam - Neck Neck exam: Present: normal inspection - Respiratory Respiratory exam: Present: clear to auscultation bilaterally. Absent: accessory muscle use - Cardiovascular Cardiovascular exam: Present: regular rate and rhythm, systolic murmur - GI/Abdominal GI/Abdominal exam: Present: normal bowel sounds, firm. Absent: distended, guarding - Extremities Exam Extremities exam: Present: normal inspection, normal capillary refill. Absent: edema - Back Exam Back exam: Present: normal inspection - Neurological Exam Neurological exam: Present: alert, oriented X3 - Psychiatric Psychiatric exam: Present: normal affect, normal mood - Skin Skin exam: Present: normal color, warm. Absent: cyanosis Result/EKG - Labs CBC & BMP: 04/02/17 04:28 04/02/17 04:28 Lab Results: I have reviewed the past 24 hour labs Labs: Laboratory Results - last 24 hr 04/02/17 04/02/17 04:28 04:28 WBC 7.8 RBC 4.38 Hgb 11.9 L Hct 35.8 L MCV 81.7 L MCH 27 MCHC 33.2 RDW 19.8 H Plt Count 158 MPV 10.8 Neut % (Auto) 42.7 Lymph % (Auto) 37.8 [place] % (Auto) 17.0 H Eos % (Auto) 1.9 Baso % (Auto) 0.3 Neut # (Auto) 3.4 Lymph # (Auto) 3.0 [place] # (Auto) 1.3 H Eos # (Auto) 0.2 Baso # (Auto) 0.0 Total Counted 100 Immature Gran % 0.3 Nucleated RBC % 0.0 Immature Gran # 0.02 Segmented Neutrophils 46 L Lymphocytes 36 Monocytes 17 H Eosinophils 1 Nucleated RBCs # 0.00 Platelet Estimate Adequate Hypochromasia 1+ Microcytosis 1+ Sodium 139 Potassium 4.2 Chloride 105 Carbon Dioxide 25 Anion Gap 13.2 BUN 13 Creatinine 1.00 GFR Calculation 97 BUN/Creatinine Ratio 13.00 Glucose 82 Calculated Osmolality 275.5 Calcium 8.8 Phosphorus 4.3 Magnesium 1.8 Total Bilirubin 0.70 AST 58 H ALT 58 Alkaline Phosphatase 69 Total Protein 7.7 Albumin 2.7 L Globulin 5.0 H Albumin/Globulin Ratio 0.5 L - EKG EKG results: interpreted by me Specialty Discharge - Follow Up or Referrals - Speciality Discharge Instructions Cardiology Instructions: FU with dr. Funez in 2 weeks
--- NOTE | 2017-04-02 10:44 | Discharge Summary ---
Hospital Course - Hospital Course Hospital Course: MR Wong presented with hypovolemic shock after being overdiuresed after starting his meds at home for heart failure the [place] or so before. He responded to IVF resuscitation and is feeling back to baseline. Once his BP allowed, he was started on Coreg and ACEI. He had a persistent sinus tachycardia which has improved with increased coreg and initiation of Dig. He will follow up at the [place] as he has done and also see Dr Robertson in the clinic soon to assess his edema- he does not have any at this time. He will stop the lasix at 80mg BID he had been on at home and instead use 40mg a day prn. His electrolytes were replaced while he was here. He does not want swing bed referral and plans to drive himself home so he does not meet criteria for home health nursing. He will continue to see his doctors in [place] re:his hepatocellular carcinoma. 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: Chronic (5) Hepatitis C Status: Chronic (6) Hepatocellular carcinoma Status: Chronic (7) Sinus tachycardia Status: Chronic Specialty Discharge - Follow Up or Referrals Follow up with: Wes Robertson MD [Physician] - 04/13/17 10:50 am Discharge Plan - Discharge Data Disposition: Disch To Home/Self Care Condition at Discharge: Stable Activity: resume usual activities as tolerated - Discharge Medications New Carvedilol [Coreg] 12.5 mg PO BID #60 tablet Digoxin Tab [Lanoxin Tab] 0.25 mg PO DAILY@1300 #30 tablet Furosemide Tab [Lasix Tab] 40 mg PO DAILY PRN #30 tablet PRN Reason: edema Continue Cholecalciferol [Vitamin D3] 1,000 unit PO DAILY Budesonide/Formoterol 160-4.5 [Symbicort 160-4.5] 2 puff INH BID Aspirin EC Tab 81 mg PO DAILY Albuterol Inhaler [Proventil Inhaler] 2 puff INH QID PRN PRN Reason: Shortness Of Breath Polyethylene Glycol 3350 17 gm PO DAILY Lisinopril [Prinivil] 2.5 mg PO DAILY Ondansetron HCl 4 mg PO DAILY PRN PRN Reason: Nausea Omeprazole 20 mg PO DAILY Lactulose Liquid [Chronulac] 30 ml PO BID Discontinued Potassium Chloride 20 meq PO BID Diltiazem Cd Cap [Cardizem CD] 120 mg PO DAILY #30 capsule Carvedilol [Coreg] 6.25 mg PO BID Meloxicam 7.5 mg PO DAILY PRN PRN Reason: Pain Sildenafil Citrate [Viagra] 100 mg PO DAILY PRN PRN Reason: Erectile Dysfunction Furosemide Tab [Lasix Tab] 80 mg PO BID DIURETIC #60 tablet - Follow Up or Referral Follow Up: Wes Robertson MD [Physician] - 04/13/17 10:50 am - Forms/Instructions Instructions: Digoxin (By mouth), Furosemide (By mouth), Carvedilol (By mouth) , Heart Failure (DC), Heart Healthy Diet (DC) Exam - Constitutional Vitals: Period Temp Pulse Resp BP Sys/Hayden Pulse Ox Last 24 Hr 97.4 F-98.2 F 97-120 18-20 100-120/53-71 94-100 General appearance: normal weight, no acute distress - Eye Eye exam: Present: EOMI. Absent: scleral icterus - Respiratory Respiratory exam: Present: clear to auscultation bilaterally - Cardiovascular Cardiovascular exam: Present: regular rate and rhythm - GI/Abdominal GI/Abdominal exam: Present: normal bowel sounds, soft. Absent: tenderness - Extremities Exam Extremities exam: Absent: edema Discharge Results Procedures and tests throughout hospitalization: Pending Orders 03/28/17 09:07 Blood Culture Routine Labs on day of discharge: Labs from last 24 hours 04/02/17 04/02/17 04:28 04:28 WBC 7.8 RBC 4.38 Hgb 11.9 L Hct 35.8 L MCV 81.7 L MCH 27 MCHC 33.2 RDW 19.8 H Plt Count 158 MPV 10.8 Neut % (Auto) 42.7 Lymph % (Auto) 37.8 [place] % (Auto) 17.0 H Eos % (Auto) 1.9 Baso % (Auto) 0.3 Neut # (Auto) 3.4 Lymph # (Auto) 3.0 [place] # (Auto) 1.3 H Eos # (Auto) 0.2 Baso # (Auto) 0.0 Total Counted 100 Immature Gran % 0.3 Nucleated RBC % 0.0 Immature Gran # 0.02 Segmented Neutrophils 46 L Lymphocytes 36 Monocytes 17 H Eosinophils 1 Nucleated RBCs # 0.00 Platelet Estimate Adequate Hypochromasia 1+ Microcytosis 1+ Sodium 139 Potassium 4.2 Chloride 105 Carbon Dioxide 25 Anion Gap 13.2 BUN 13 Creatinine 1.00 GFR Calculation 97 BUN/Creatinine Ratio 13.00 Glucose 82 Calculated Osmolality 275.5 Calcium 8.8 Phosphorus 4.3 Magnesium 1.8 Total Bilirubin 0.70 AST 58 H ALT 58 Alkaline Phosphatase 69 Total Protein 7.7 Albumin 2.7 L Globulin 5.0 H Albumin/Globulin Ratio 0.5 L Preliminary micro results at discharge 03/28/17 09:07 Blood Culture - Preliminary Blood Gram positive rods DS: Provider Date of admission: 03/27/17 16:29 Primary care physician: . No PCP Attending physician on admission: Enoc Sosa MD Consults: 03/27/17 18:22 Consult to Physician [CONS] Routine Comment: Persistent hypotension Consulting Provider: Cardiology - [facility] Consult to Specialist Group: Cardiology When should Consulting Provider be notified: In am Person Notified: [facility] Date Notified: 03/28/17 Time Notified: 08:39 Discharging clinician: Lora Phelps MD
[2017-04-02 11:32] VITALS: BP 103/71
[2017-04-02] MEDS ORDERED: DIGOXIN 0.25 MG TABLET PO SCH (12:00)
== END 2017-04-02 13:25 | disposition home or self-care (01) | DRG 682 ==
LOC: N.ED 12:35 → N.EDINP 16:29 → SUATTDRO 16:29 → N.CC 17:14 → N.TELEN 03-28 14:08
PROVIDERS: ADMIT Family Medicine; ATTEND Internal Medicine

== ENCOUNTER 2019-01-01 10:04 | Observation (INO) ==
[2019-01-01 11:08] LABS: Basophils % 0.1 % (0.0-0.8); Eosinophils # 0.1 10*3/uL (0.0-0.87); Eosinophils % 0.8 % (0.00-10.9); Hematocrit 24.5 VOL% (42.0-52.0); Hemoglobin 7.7 GM/DL (14.0-18.0); Immature Granulocytes % 0.6 %; Immature Granulocytes Absolute 0.05 #; Lymphocytes # 0.4 10*3/uL (1.4-4.0); Lymphocytes % 4.4 % (21.2-54.2); Mean Corpuscular HGB Conc 31.4 GM/DL (32-36); Mean Corpuscular Hemoglobin 24 PG (27-34); Mean Corpuscular Volume 76.6 FL (87-102); Monocytes # 0.7 10*3/uL (0.11-0.8); Monocytes % 8.2 % (1.7-12.7); Neutrophils # 7.8 10*3/uL (1.4-7.4); Neutrophils % 85.9 % (38.7-73.9); Platelet Count 219 T/CUMM (130-400); Red Cell Distribution Width 16.1 % (9.3-17.3)
[2019-01-01 11:25] LABS: Albumin 2.4 G/DL (3.4-5.0); Bilirubin,Total 0.5 MG/DL (0.2-1.0); Calcium 8.7 MG/DL (8.5-10.1); Osmolality,Calculated 285.1 MOS/KG (273-304); Potassium 4.3 MMOL/L (3.5-5.1); Total Protein 9.1 G/DL (6.4-8.3)
[2019-01-01 11:31] LABS: Hypochromasia 1+; Lymphocytes 1 % (20-55); Ovalocytes Slight; Platelet Estimate Adequate; Segmented Neutrophils 91 % (50-85); Total Cells Counted 100
[2019-01-01] MEDS ORDERED: ACETAMINOPHEN 325 MG TABLET PO PRN (12:54)
[2019-01-01] MEDS ORDERED: ONDANSETRON 4 MG/2 ML VIAL IV PRN (12:54)
[2019-01-01] MEDS ORDERED: SODIUM CHLORIDE 0.9% 1,000 ML IV PRN (12:56)
[2019-01-01 14:17] LABS: Basophils % 0.2 % (0.0-0.8); Eosinophils # 0.1 10*3/uL (0.0-0.87); Hematocrit 28.2 VOL% (42.0-52.0); Hemoglobin 8.6 GM/DL (14.0-18.0); Immature Granulocytes % 0.9 %; Immature Granulocytes Absolute 0.08 #; Lymphocytes # 0.5 10*3/uL (1.4-4.0); Lymphocytes % 5.8 % (21.2-54.2); Mean Corpuscular HGB Conc 30.5 GM/DL (32-36); Mean Corpuscular Hemoglobin 24 PG (27-34); Mean Corpuscular Volume 77.5 FL (87-102); Mean Platelet Volume 12.2 FL (9.6-12.0); Monocytes # 0.7 10*3/uL (0.11-0.8); Monocytes % 7.6 % (1.7-12.7); Neutrophils # 7.8 10*3/uL (1.4-7.4); Neutrophils % 84.5 % (38.7-73.9); Platelet Count 266 T/CUMM (130-400); Red Blood Count 3.64 MC/CUMM (3.8-5.5); Red Cell Distribution Width 16.2 % (9.3-17.3); White Blood Count 9.3 T/CUMM (4-12)
[2019-01-01 14:24] LABS: Vitamin B12 988 PG/ML (211-911)
[2019-01-01 15:28] LABS: Sedimentation Rate-Westergren 120 MM/HR (0-20)
[2019-01-01] MEDS ORDERED: ONDANSETRON 4 MG TABLET PO PRN (16:53)
[2019-01-01] MEDS ORDERED: POLYETHYLENE GLYCOL POWDER 17 GM PACK PO PRN (16:53)
[2019-01-01] MEDS: LACTULOSE 20 GM/30 ML UDCUP PO SCH (21:02)
[2019-01-01] MEDS: BUDESONIDE/FORMOTEROL 160-4.5 INHALER 6 GM INH SCH (21:02)
[2019-01-01] MEDS: CARVEDILOL 12.5 MG TABLET PO SCH (21:02)
[2019-01-01] MEDS: CHOLECALCIFEROL 1,000 UNIT TABLET PO SCH (21:02)
[2019-01-02 05:05] LABS: Hematocrit 21.7 VOL% (42.0-52.0); Hemoglobin 6.8 GM/DL (14.0-18.0)
[2019-01-02 05:24] LABS: Calcium 8.8 MG/DL (8.5-10.1); Osmolality,Calculated 276.2 MOS/KG (273-304); Potassium 4.1 MMOL/L (3.5-5.1)
[2019-01-02 08:40] LABS: Hemoglobin A1 (Alkaline) 98.2 % (96.5-98.5); Hemoglobin A2 (Alkaline) 1.8 % (1.5-3.5)
[2019-01-02] MEDS: ASPIRIN EC 81 MG TABLET PO SCH (09:12)
[2019-01-02] MEDS: LACTULOSE 20 GM/30 ML UDCUP PO SCH ×2 (09:13→20:55)
[2019-01-02] MEDS: PANTOPRAZOLE 40 MG TABLET PO SCH (09:14)
[2019-01-02] MEDS: FUROSEMIDE 20 MG TABLET PO SCH (09:14)
[2019-01-02] MEDS: BUDESONIDE/FORMOTEROL 160-4.5 INHALER 6 GM INH SCH ×2 (09:47→20:54)
[2019-01-02] MEDS: CARVEDILOL 12.5 MG TABLET PO SCH ×2 (11:00→20:54)
[2019-01-02] MEDS ORDERED: DIGOXIN 0.25 MG TABLET PO SCH (13:00)
[2019-01-02 16:01] LABS: Hematocrit 29.7 VOL% (42.0-52.0)
[2019-01-02 16:05] LABS: Hemoglobin 9.5 GM/DL (14.0-18.0)
[2019-01-02] MEDS: CHOLECALCIFEROL 1,000 UNIT TABLET PO SCH (20:54)
[2019-01-03 07:21] LABS: Basophils % 0.3 % (0.0-0.8); Eosinophils # 0.1 10*3/uL (0.0-0.87); Eosinophils % 1.2 % (0.00-10.9); Hematocrit 28.7 VOL% (42.0-52.0); Hemoglobin 9.2 GM/DL (14.0-18.0); Immature Granulocytes Absolute 0.09 #; Lymphocytes # 0.6 10*3/uL (1.4-4.0); Lymphocytes % 6.1 % (21.2-54.2); Mean Corpuscular HGB Conc 32.1 GM/DL (32-36); Mean Corpuscular Hemoglobin 25 PG (27-34); Mean Platelet Volume 11.3 FL (9.6-12.0); Monocytes # 0.7 10*3/uL (0.11-0.8); Neutrophils # 7.6 10*3/uL (1.4-7.4); Neutrophils % 83.4 % (38.7-73.9); Platelet Count 270 T/CUMM (130-400); Red Blood Count 3.68 MC/CUMM (3.8-5.5); Red Cell Distribution Width 16.4 % (9.3-17.3); White Blood Count 9.1 T/CUMM (4-12)
[2019-01-03 07:36] LABS: Calcium 8.6 MG/DL (8.5-10.1); Osmolality,Calculated 273.1 MOS/KG (273-304); Potassium 3.7 MMOL/L (3.5-5.1)
[2019-01-03] MEDS: CARVEDILOL 12.5 MG TABLET PO SCH (08:42)
[2019-01-03] MEDS: FUROSEMIDE 20 MG TABLET PO SCH (08:42)
[2019-01-03] MEDS: PANTOPRAZOLE 40 MG TABLET PO SCH (08:42)
[2019-01-03] MEDS: ASPIRIN EC 81 MG TABLET PO SCH (08:42)
[2019-01-03] MEDS: LACTULOSE 20 GM/30 ML UDCUP PO SCH (08:42)
[2019-01-03] MEDS: BUDESONIDE/FORMOTEROL 160-4.5 INHALER 6 GM INH SCH (08:43)
[2019-01-03 11:42] VITALS: BP 110/55
== END 2019-01-03 13:15 | disposition home or self-care (01) ==
LOC: EDUNIT# → EDBD → N.ED 10:04 → N.EDINP 10:04 → SUATTDRO 12:54 → N.EDINP 14:19 → N.2E 14:51
PROVIDERS: ADMIT Internal Medicine Cardiovascular Disease; ATTEND Hospitalist